=== PATIENT | female | born 1995 | race Caucasian/White ===

== ENCOUNTER 2018-08-07 11:01 | Emergency (ER) | payer SELFPAY ==
[2018-08-07 11:02] VITALS: BP 130/82; PULSE 97; RESP 16; TEMP 36.6; O2SAT 98; BMI 18.8
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
[2018-08-07] MEDS: Ondansetron 8 MG Tablet PO (11:50)
[2018-08-07 12:07] LABS: Mucous, Urine 0 SEEN /hpf (<or=2+); Red Blood Cells-Urine 0 SEEN /hpf (0-5)
[2018-08-07 12:10] LABS: Color, Urine Yellow (Yellow); Glucose, Dipstick Normal (Normal); Ketone-Dipstick Negative (Negative); Leukocyte Esterase-Dipstick 25 /ul (Negative); Nitrite-Dipstick Negative (Negative); Occult Blood-Urine Negative /ul (Negative); Protein-Dipstick Negative (Negative); Specific Gravity, Urine 1.015 (1.002-1.030); Urine Bilirubin Dipstick Negative (Negative); Urine Clarity Sl. Cloudy (Clear); Urine Urobilinogen Normal (Normal)
[2018-08-07 12:12] LABS: Internal QC Validated? YES +Cl - CLEAR BKGD; Pregnancy, Urine Negative Negative
[2018-08-07 12:16] LABS: Bacteria 1+ /hpf (None Seen); Squamous Epithelial Cells - UA 0-5 SEEN /hpf (5-10); White Blood Cells 0-5 SEEN /hpf (0-5)
--- NOTE | 2018-08-07 12:27 | ED.DEP ---
ED Disposition - Plan for ED Patient: Chief Complaint: Nausea/Vomiting Instructions: ED Nausea Vomiting Prescriptions: Ondansetron [Zofran Odt] 4 mg PO Q8H PRN PRN #10 tab PRN Reason: Nausea Referrals: Care Physician,No Primary [Primary Care Provider] -
--- OUTSIDE RECORDS SUMMARY | 2018-09-23 14:40 | XMS RPT_ITS | Summary of Care ---
:1995 Author Organization [facility] Address [address] [place] [address] Phone Care Team Providers Name Role Phone Yanet Barnes MD Primary Care Provider Reason for Visit Reason Comments Preg test Encounter Details Date Type Department Care Team Description 08/29/2017 [facility] JacquidelfinaJordon Less than 8 weeks Emergency Department MD Dann gestation of [address] (Primary Dx) [place] [address] Rd [phone] [facility] [address] [place] [address] [phone] Allergies Active Allergy Reactions Severity Noted Date Comments Amoxicillin Hives 03/01/2017 Metronidazole GI Intolerance 06/29/2017 as of this encounter Medications Prescription Sig. Disp. Refills Start Date End Date Status prenat.vits,yulisa,min-iro Take 1 tablet by 30 each 0 08/29/2017 09/28/2017 Active n-folic ( mouth daily. VITAMIN) Tab as of this encounter Active Problems Problem Noted Date Encounter for tobacco use cessation counseling 07/09/2017 Last Assessment & Plan: Will start on patch and bring back in 2 weeks. Discussed importance of selecting a quit date, identifying barriers and resources, and her boyfriend also quitting with her. Incomplete miscarriage 06/29/2017 Last Assessment & Plan: Will recheck [facility] today. Continue vitamins. Social History Tobacco Use Types Packs/Day Years Used Date Current Every Day Smoker Cigarettes 0.5 1 Smokeless Tobacco: Never Used Alcohol Use Drinks/Week oz/Week Comments Yes Socially Sex Assigned at Date Recorded Not on file as of this encounter Last Filed Vital Signs Vital Sign Reading Time Taken Blood Pressure 133/79 08/29/2017 12:41 PM EST Pulse 100 08/29/2017 12:41 PM EST Temperature 36.9 ??C (98.4 ??F) 08/29/2017 12:41 PM EST Respiratory Rate 16 08/29/2017 12:41 PM EST Oxygen Saturation 100% 08/29/2017 12:41 PM EST Inhaled Oxygen Concentration - - Weight - - Height - - Body Mass Index - - in this encounter Discharge Instructions Florinda Huynh CNP - 08/29/2017Seek medical attention if you have worsening symptoms or other concerns. Please follow up with your family doctor or one of your choosing. You may find a provider through the [facility] Physician Referral Service by calling [phone] ([phone]) or by visiting [email or web address] Tasneem, Thank You for choosing [facility]! PLEASE CALL [facility] TO GET A FOLLOW UP APPOINTMENT SET UP. PLEASE RETURN TO THE ER FORANY CHANGE OR WORSENING OF YOUR SYMPTOMS OR ANY OTHER CONCERNS THAT YOU MAY HAVE. Weeks 6 to 10 of Your : Care Instructions Your Care Instructions Congratulations on your . This is an exciting and important time for you. During the first 6 to 10 weeks of your , your body goes through many changes. Your baby grows very fast, even though you cannot feel it yet. You may start to notice that you feel different, both in your body and your emotions. Because each woman's is unique, there is no right way tofeel. You may feel the healthiest you have ever been, or you may feel tired or sick to your stomach (morning sickness). These early weeks are a time to make healthy choices and to eat the best foods for you and your baby. This care sheet will give you some ideas. This is also a good time to think about defects testing. These are tests done during pregnancyto look for possible problems with the baby. First trimester tests for defects can be done between 10 and 13 weeks of , depending on the test. Talk with your doctor about what kinds of te sts are available. Follow-up care is a riddle part of your treatment and safety. Be sure to make and go to all appointments, and call your doctor if you are having problems. It's also a good idea to know your test results and keep a list of the medicines you take. How can you care for yourself at home? Eat well ?? Eat at least 3 meals and 2 healthy snacks every day. Eat fresh, whole foods, including: ?? 7 or more servings of bread, tortillas, cereal, rice, pasta, or oatmeal. ?? 3 or more servings of vegetables, especially leafy green vegetables. ?? 2 or more servings of fruits. ?? 3 or more servings of milk, yogurt, or cheese. ?? 2 or more servings of meat, turkey, chicken, fish, eggs, or dried beans. ?? Drink plenty of fluids, especially water. Avoid sodas and other sweetened drinks. ?? Choose foods that have important vitamins for your baby, such as calcium, iron, and folate. ?? Dairy products, tofu, canned fish with bones, almonds, broccoli, dark leafy greens, corn tortillas, and fortified orange juice are good sources of calcium. ?? Beef, poultry, liver, spinach, lentils, dried beans, fortified cereals, and dried fruits are richin iron. ?? Dark leafy greens, broccoli, asparagus, liver, fortified cereals, orange juice, peanuts, and almonds are good sources of folate. ?? Avoid foods that could harm your baby. ?? Do not eat raw or undercooked meat, chicken, or fish (such as sushi or raw oysters). ?? Do not eat raw eggs or foods that contain raw eggs, such as Caesar dressing. ?? Do not eat soft cheeses and unpasteurized dairy foods, such as Brie, feta, or blue cheese. ?? Do not eat fish that contains a lot of mercury, such as shark, swordfish, tilefish, or dean mackerel. Do not eat more than 6 ounces of tuna each week. ?? Do not eat raw sprouts, especially alfalfa sprouts. ?? Cut down on caffeine, such as coffee, tea, and cola. Protect yourself and your baby ?? Do not touch juan litter or cat feces. They can cause an infection that could harm your baby. ?? High body temperature can be harmful to your baby. So if you want to use a sauna or hot tub, be sure to talk to your doctor about how to use it safely. [place] with morning sickness ?? Sip small amounts of water, juices, or shakes. Try drinking between meals, not with meals. ?? Eat 5 or 6 small meals a day. Try dry toast or crackers when you first get up, and eat breakfast a little later. ?? Avoid spicy, greasy, and fatty foods. ?? When you feel sick, open your windows or go for a short walk to get fresh air. ?? Try nausea wristbands. These help some women. ?? Tell your doctor if you think your vitamins make you sick. Where can you learn more? Log into your personal health record on [email or web address] and enter G112 in the Education box to learn more about Weeks 6 to 10 of Your : Care Instructions. Current as of: January 24, 2016 Content Version: 11.2 ?? 6583-2612 [employer]. Care instructions adapted under license by your healthcare professional. If you have questions about a medical condition or this instruction, always ask your healthcare professional. [employer] disclaims any warranty or liability for your use of this information. in this encounter Miscellaneous Notes ED Provider Notes - Florinda Huynh CNP - 08/29/2017 12:59 PM ESTFormatting of this note may be different from the original. ED PROVIDER NOTE [facility] EMERGENCY DEPARTMENT NAME: Tasneem Dudley AGE: 22 y.o. : 1995 VISIT DATE: 08/29/2017 CSN: [id number] PCP: Yanet Barnes MD Chief Complaint Patient presents with ??? Preg test This is a 22-year-old female who presents to the emergency department stating that she wants to be tested for possible she states her last menstrual cycle was July 282016 she denies any abdominal pain no pelvic pain no back pain no chest pain or shortness of breath she states she ishaving some breast tenderness and some nausea but denies any vaginal discharge denies any vaginal bleeding denies any dysuria frequency with urination she states she is currently established with [facility] for ongoing medical care but needed documentation of positive test. She is amatory without difficulty her vital signs are stable blood pressure is 133/79 temperature of 98.4 pulse of 100 respiratory of 16 saturations 100% on room air she states she is not immunocompromised.Does not take any medications on a regular basis. I have instructed her to please call [facility] to get an appointment to be set up for reevaluation certainly return for any change worsening of her symptoms or any other concerns she may have. Past Medical History: Diagnosis Date ??? Tachycardia History reviewed. No pertinent surgical history. History reviewed. No pertinent family history. Social History Social History ??? Marital status: Single Spouse name: N/A ??? Number of children: N/A ??? Years of education: N/A Occupational History ??? Not on file. Social History Main Topics ??? Smoking status: Current Every Day Smoker Packs/day: 0.50 Years: 1.00 Types: Cigarettes ??? Smokeless tobacco: Never Used ??? Alcohol use Yes Comment: Socially ??? Drug use: No ??? Sexual activity: Not on file Other Topics Concern ??? Not on file Social History Narrative ??? No narrative on file Previous Medications No medications on file Allergies Allergen Reactions ??? Amoxicillin Hives ??? Flagyl [Metronidazole] GI Intolerance Review of Systems Constitutional: Negative for chills and fatigue. HENT: Negative. Eyes: Negative for visual disturbance. Respiratory: Negative. Cardiovascular: Negative. Gastrointestinal: Positive for constipation and nausea. Negative for abdominal pain, blood in stool and vomiting. Genitourinary: Negative for difficulty urinating, dysuria, flank pain, pelvic pain, urgency, vaginalbleeding and vaginal discharge. Musculoskeletal: Negative. Skin: Negative. Allergic/Immunologic: Negative for immunocompromised state. Neurological: Negative. Psychiatric/Behavioral: Negative. All other systems reviewed and are negative. Positives and pertinent negatives as per HPI. All other systems were reviewed and are negative. Patient Vitals for the past 24 hrs: BP Temp Temp src Pulse Resp SpO2 08/29/17 1241 133/79 98.4 ??F (36.9 ??C) Oral (!) 100 16 100 % Physical Exam Constitutional: She is oriented to person, place, and time. She appears well- developed and well-nourished. HENT: Head: Normocephalic and atraumatic. Eyes: EOM are normal. Neck: Neck supple. Cardiovascular: Normal rate and regular rhythm. Pulmonary/Chest: Effort normal and breath sounds normal. No respiratory distress. She has no wheezes. Abdominal: Soft. Bowel sounds are normal. There is no tenderness. Musculoskeletal: Normal range of motion. Neurological: She is alert and oriented to person, place, and time. Skin: Skin is warm. Psychiatric: She has a normal mood and affect. Nursing note and vitals reviewed. Laboratory & Radiographic Imaging (if done): Results for orders placed or performed during the hospital encounter of 08/29/17 POC Urine Result Value Ref Range POC Preg Test, Ur Positive (A) Negative Internal Control Pass Spec Grav, UA 1.005 - 1.025 No orders to display Procedures MDM 22-year-old female who presented to the emergency department wanting to confirm she is denying any symptoms that would warrant any additional evaluation she did have a test urine done that was positive she has been instructed to call family practice to set up a follow-up appointment she has been given strict return precautions to return to the emergency department for any change or worsening of her symptoms or any other concerns she may have she states she is 2 para 0 miscarriage ??1. ED Course The patient has been informed that they may have pre-hypertension or hypertension based on a blood pressure reading in the Emergency Department. I recommend that the patient call the primary care provider listed on their discharge instructions or a physician of their choice as soon as possible to arrange follow-up in the next 4 weeks for further evaluation of possible pre-hypertension or hypertension. . Clinical Impression: SNOMED CT(R) 1. Less than 8 weeks gestation of FIRST TRIMESTER Follow-up Information 1. Yanet Barnes MD. Specialty: Family Medicine [address] [place] [address] Contact information for after-discharge care Follow-up information has not been specified. New Prescriptions PRENAT.VITS,YULISA,[id number] ( VITAMIN) TAB Take 1 tablet by mouth daily. (Please note that portions of this note may have been completed with a voice recognition software. Efforts were made to correct any errors, but occasionally words are mis-transcribed.) Florinda Huynh CNP 08/29/17 1306 ED Triage Notes - Danielle Marquez RN - 08/29/2017 12:39 PM ESTPt sts there is a possibility she is . Pt did not take a test at home but reports a missed period.in this encounter Plan of Treatment Upcoming Encounters Date Type Specialty Care Team Description 08/31/2017 Initial Primary Care Health Maintenance Due Date Last Done Comments ANNUAL EXAM 1995 TETANUS EVERY 10 YR 1995 HPV VACCINES (1 of 3 - Female 3 Dose Series) 2008 CHLAMYDIA SCREENING 2012 SEQUENTIAL INFLUENZA VACCINE (#1) 2017 as of this encounter Results POC Urine (08/29/2017 12:48 PM) Component Value Ref Range POC Preg Test, Ur Positive (A) Negative Internal Control Pass Spec Grav, UA 1.005 - 1.025 Specimen Performing Laboratory Urine in this encounter Visit Diagnoses Diagnosis Less than 8 weeks gestation of - Primary Insurance Payer Benefit Plan / Group Subscriber ID Type Phone Address [employer] MANAGED MEDICAID [employer] MEDICAID [employer] [id number] as of this encounter
--- OUTSIDE RECORDS SUMMARY | 2018-09-23 14:40 | XMS RPT_ITS | Summary of Care ---
:1995 Author Organization [facility] Address [address] [place] [address] Care Team Providers Name Role Phone Yanet Barnes MD Primary Care Provider Reason for Visit Reason Comments Follow-up Miscarriage Encounter Details Date Type Department Care Team Description 10/26/2017 Office Visit [facility] Family Nayeli Manley, History of spontaneous (Primary Dx); Medicine Jose M OVALLE Constipation, unspecified constipation type; [address] Nausea; [address] Anemia due to blood loss; [place], [place] Poor appetite [id number] [phone] Allergies Active Allergy Reactions Severity Noted Date Comments Amoxicillin Hives 03/01/2017 Metronidazole GI Intolerance 06/29/2017 as of this encounter Medications Prescription Sig. Disp. Refills Start Date End Date Status polyethylene glycol Take 17 255 g 5 10/26/2017 10/21/2018 Active (MIRALAX) 17 gram (seventeen) g by powderIndications: mouth daily. Constipation, unspecified constipation type ondansetron Dissolve 1 (one) 20 tablet 0 10/26/2017 11/02/2017 Active (ZOFRAN-ODT) 4 MG tablet (4 mg disintegrating total) on top of tabletIndications: tongue every 8 Nausea (eight) hours as needed for nausea. ferrous sulfate 325 Take 1 (one) 90 tablet 11 10/26/2017 10/26/2018 Active (65 FE) MG tablet (325 mg tabletIndications: total) by mouth Anemia due to blood 3 (three) times loss a day with meals. as of this encounter Active Problems Problem Noted Date Constipation 10/26/2017 Last Assessment & Plan: Chronic. -Increase dietary fibers and water intake -Miralax 1-2 daily PRN Poor appetite 10/26/2017 Last Assessment & Plan: Lost up to 8 lb in 6 weeks. BMI 18.5. Occasional nausea (once-to-few times a week) w/o emesis, no change in BM. Likely due to stress and acute illness related to 2 spontaneous abortions within last 4 mo nths. Possibly underlying depression, however, pt denies. -Encouraged to eat small frequent meals and healthy snacks -Discussed increasing protein rich foods (meat, beans, whole milk diary) -Increase water intake -PN vitamins -May use Zofran for nausea -If nausea persists consider workup Anemia due to blood loss 10/26/2017 Last Assessment & Plan: Hgb 9.1 (baseline ~ 13). Dur to acute blood loss. -Start iron supplement 2-3x daily w/ meals and Vit C -Discussed se: constipation and dark stool, pt aware -Recheck CBC in 2 months. History of spontaneous 09/19/2017 Overview: Two first trimester SAB Last Assessment & Plan: Two spontaneous abortions (06/27/17 and 09/18/17) at first TM ~ 7 wks. Unknown etiology. S/p bedside manual removal of products of conception on 10/12. Doing well, no bleeding. -Desires to be on BC for next few months, [facility]. -Pt advised to continue prenatals, healthy diet and quit smoking if she desires after short break. -Standing order for beta-HCG quant, trend until below cut-off Tobacco use 09/14/2017 Last Assessment & Plan: Continue to encourage complete cessation, especially at couple are desiring . Continue to motivate. Will also continue nicoderm and monitor. Need for varicella vaccine 09/03/2017 Overview: Varicella equivocal Currently Estimated Date of Delivery Comments Yes 05/05/2018 Based on last menstrual period of 07/29/2017 (Exact Date) Resolved Problems Problem Noted Date Resolved Date Chlamydia infection 09/19/2017 10/17/2017 Last Assessment & Plan: Will need test of cure due to current . Trichomonal infection 09/19/2017 10/17/2017 Last Assessment & Plan: Counseled patient and partner on need for treatment of STD. Avoid intercourse x 1 week after both partners treated. Spotting in 09/19/2017 10/06/2017 Spontaneous 09/19/2017 10/17/2017 Last Assessment & Plan: Tasneem Dudley is 22 y.o. with history of ongoing missed AB presenting to [facility] for increased vaginal bleeding and abdominal cramping. - Afebrile, BP 96/59, HR max 100 BPM. Vitals improved following 1L bolus. - WBC 16, HGB 10.5 (11.9). - Pt diagnosed with Missed AB after inappropriate 48-hr quant 09/18- 09/20. - hCG 10/12 2386 (from 4221) - Significant clot and pooled blood on pelvic exam. Products of conception suspected at os. Os slightly open on digital exam, no visible due to severe anteverted uterus. - Rh+, no indication for Rhogam - +Chlamydia never treated, concern for PID in setting of missed AB. Will provide azithromycin 1g PO x1. - Pelvic US 10/12: irregular-appearing somewhat elongated, ovoid structure in the cervical canal with no obvious identifiable parts. This has some echogenic debris probably representing some bl ood products probably representing patient's incomplete . - Pt stable for discharge. Pain is significantly improved following removal of clot and products and staying in ED. Supervision of low-risk 09/03/2017 10/06/2017 Overview: Dates by LMP 6w5d c/w 6w0d u/s complications: tobacco use, varicella equivocal Initial labs: AB positive, hep B neg, HIV neg, RPR nonreactive, rubella immune, varicella equivocal Quad screen: ... CFTR: Anatomy scan: ... 28 wk labs: ... Tdap:... 36 wk labs: ... Feeding: ... Contraception: ... Baby Doc: Influenza vaccine: Last Assessment & Plan: Dates by LMP 6w5d c/w 6w0d u/s complications: tobacco use, varicella equivocal Initial labs: AB positive, hep B neg, HIV neg, RPR nonreactive, rubella immune, varicella equivocal Incomplete miscarriage 06/29/2017 09/03/2017 Last Assessment & Plan: Will recheck bhCG today. Continue vitamins. Social History Tobacco Use Types Packs/Day Years Used Date Current Every Day Smoker Cigarettes 0.5 1 Smokeless Tobacco: Never Used Comments: '' I'm cutting down'' started smoking one year ago Alcohol Use Drinks/Week oz/Week Comments No denies this Currently Estimated Date of Delivery Comments Yes 05/05/2018 Based on last menstrual period of 07/29/2017 (Exact Date) Sex Assigned at Date Recorded Not on file as of this encounter Last Filed Vital Signs Vital Sign Reading Time Taken Blood Pressure 102/70 10/26/2017 1:42 PM EST Pulse 90 10/26/2017 1:42 PM EST Temperature 36.8 ??C (98.3 ??F) 10/26/2017 1:42 PM EST Respiratory Rate 16 10/26/2017 1:42 PM EST Oxygen Saturation - - Inhaled Oxygen Concentration - - Weight 60.2 kg (132 lb 12 oz) 10/26/2017 1:42 PM EST Height 180.3 cm (5' 11) 10/26/2017 1:42 PM EST Body Mass Index 18.51 10/26/2017 1:42 PM EST in this encounter Progress Notes Nabeel Allen MD - 10/26/2017 2:56 PM XAVI have reviewed the history, physical, diagnosis and care plan with the resident physician, Nayeli Manley MD, on 10/26/2017. I confirm the assessment and treatment plan: The primary encounter diagnosis was History of spontaneous . Diagnoses of Constipation, unspecified constipation type, Nausea, and Anemia due to blood loss were also pertinent to this visit. Tasneem is a 22 y.o. female here for f/u on miscarriage, no more bleeding, f/u quant. Does have constipation; Tx with miralax. Iron supplement for anemia. Nausea - zofran, f/u if persisting.Nayeli Manley MD - 10/26/2017 2:00 PM EST Formatting of this note may be different from the original. Tasneem Dudley is a 22 y.o. female Assessment/Plan: Problem List Items Addressed This Visit Digestive Constipation Chronic. -Increase dietary fibers and water intake -Miralax 1-2 daily PRN Relevant Medications polyethylene glycol (MIRALAX) 17 gram powder Other History of spontaneous - Primary Two spontaneous abortions (06/27/17 and 09/18/17) at first TM ~ 7 wks. Unknown etiology. S/p bedsidemanual removal of products of conception on 10/12. Doing well, no bleeding. -Desires to be on BC for next few months, going to [facility]. -Pt advised to continue prenatals, healthy diet and quit smoking if she desires after short break. -Standing order for beta-HCG quant, trend until below cut-off Relevant Orders hCG, Quantitative, Blood Poor appetite Lost up to 8 lb in 6 weeks. BMI 18.5. Occasional nausea (once-to-few times a week) w/o emesis, no change in BM. Likely due to stress and acute illness related to 2 spontaneous abortions within last 4months. Possibly underlying depression, however, pt denies. -Encouraged to eat small frequent meals and healthy snacks -Discussed increasing protein rich foods (meat, beans, whole milk diary) -Increase water intake -PN vitamins -May use Zofran for nausea -If nausea persists consider workup Relevant Medications ondansetron (ZOFRAN-ODT) 4 MG disintegrating tablet Anemia due to blood loss Hgb 9.1 (baseline ~ 13). Dur to acute blood loss. -Start iron supplement 2-3x daily w/ meals and Vit C -Discussed se: constipation and dark stool, pt aware -Recheck CBC in 2 months. Relevant Medications ferrous sulfate 325 (65 FE) MG tablet Return in about 2 months (around 12/26/2017) for anemia. Tasneem Dudley is a 22 y.o. female who presents for Chief Complaint Patient presents with ??? Follow-up Miscarriage HPI H/o reccurent miscarriage- Tasneem presents with her partner for a follow up after [facility] ED visit 3 weeks ago related to bleeding from miscarriage. She had spontaneous in the end of August (expectant management) and presented to the ED with significant vaginal bleeding on 10/12. She was evaluated by OB physician in the ED, clots were removed. Follow up TVUS evaluation was satisfactory after that and pt's bleeding significantly reduced. She was discharge home in stable condition same day. Shereports her bleeding completely stopped several days ago. Pt is sexually active, not on any contraception. States she is returning [facility] after the [facility] where she will get her Depo Provera shot. Feels fatigue. Has no plans to get in th next several months. Still smoking. Chronic constipation- for years, associated with lower abdominal pain with BM. Barely eats fruits orveggies, reports drinking not enough water, drinks juices and Gatorade. Poor appetite- pt reports poor appetite for [id number]. She has unintentional weight loss, unsure how much (per chart, up to 8 lb in the past 2 months). No vomiting but has occasional nausea. Not craving any food. Pt asks what to do to gain weight. When asked about body habits in other females inthe family admits her mom and sister and also thin. Patient Active Problem List Diagnosis SNOMED CT(R) ??? Need for varicella vaccine REQUIRES VACCINATION ??? Tobacco use TOBACCO USE AND EXPOSURE - FINDING ??? History of spontaneous H/O: MISCARRIAGE ??? Constipation CONSTIPATION ??? Poor appetite DECREASE IN APPETITE ??? Anemia due to blood loss ANEMIA DUE TO BLOOD LOSS Past Surgical History: Procedure Laterality Date ??? denies Social History Substance Use Topics ??? Smoking status: Current Every Day Smoker Packs/day: 0.50 Years: 1.00 Types: Cigarettes ??? Smokeless tobacco: Never Used Comment: '' I'm cutting down'' started smoking one year ago ??? Alcohol use No Comment: denies this Current Outpatient Prescriptions Medication Sig Dispense Refill ??? ferrous sulfate 325 (65 FE) MG tablet Take 1 (one) tablet (325 mg total) by mouth 3 (three) times a day with meals. 90 tablet 11 ??? ondansetron (ZOFRAN-ODT) 4 MG disintegrating tablet Dissolve 1 (one) tablet (4 mg total) on top of tongue every 8 (eight) hours as needed for nausea. 20 tablet 0 ??? polyethylene glycol (MIRALAX) 17 gram powder Take 17 (seventeen) g by mouth daily. 255 g 5 No current facility-administered medications for this visit. Review of Systems Constitutional: Positive for appetite change. Negative for fever. Respiratory: Negative for shortness of breath. Cardiovascular: Negative for chest pain. Gastrointestinal: Negative for blood in stool. Cramping-like pain with BM. Chronic constipation. Occasional nausea, no emesis. Endocrine: Negative for cold intolerance, heat intolerance, polydipsia and polyuria. Genitourinary: Negative for dyspareunia, vaginal bleeding and vaginal discharge. Musculoskeletal: Negative for arthralgias. Skin: Negative for rash. Neurological: Negative for light-headedness. Psychiatric/Behavioral: Negative for sleep disturbance and suicidal ideas. The patient is not nervous/anxious. Physical Exam: BP 102/70 Pulse 90 Temp 98.3 ??F (36.8 ??C) (Oral) Resp 16 Ht 5' 11 Wt 60.2 kg (132 lb 12 oz) LMP 07/29/2017 (Exact Date) BMI 18.51 kg/m?? Wt Readings from Last 3 Encounters: 10/26/17 60.2 kg (132 lb 12 oz) 10/12/17 59.9 kg (132 lb) 09/28/17 61.7 kg (136 lb) BP Readings from Last 3 Encounters: 10/26/17 102/70 10/12/17 (!) 106/45 09/28/17 120/80 Physical Exam Constitutional: No distress. Pt appears pale and tired. Cardiovascular: Normal heart sounds. Pulmonary/Chest: Effort normal. Abdominal: Soft. Bowel sounds are normal. She exhibits no distension. There is no tenderness. There is no guarding. Musculoskeletal: Normal range of motion. Skin: Skin is warm and dry. Psychiatric: Answer q's appropriately. Mood normal, affect flat, appears withdrawn (comparable with previous visit, baseline?) No Data Recorded Health Maintenance Due Topic Date Due ??? TETANUS EVERY 10 YR 1997 ??? ANNUAL EXAM 1997 ??? HPV VACCINES (1 of 3 - Female 3 Dose Series) 2008 ??? CHLAMYDIA SCREENING 2012 ??? SEQUENTIAL INFLUENZA VACCINE (1) 04/27/2017 Goals None For any new medications prescribed today, patient was educated about indications for the medication,how to take the medication and potential side effects of the medications. in this encounter Miscellaneous Notes Assessment & Plan Note - Nayeli Manley MD - 10/27/2017 1:49 PM EST Associated Problem(s): ConstipationChronic. -Increase dietary fibers and water intake -Miralax 1-2 daily PRNAssessment & Plan Note - Nayeli Manley MD - 10/27/2017 1:44 PM ESTAssociated Problem(s): History of spontaneous abortionTwo spontaneous abortions (06/27/17 and 09/18/17) at first TM ~ 7 wks. Unknown etiology. S/p bedside manual removal of products of conception on 10/12. Doing well, no bleeding. -Desires to be on BC for next few months, going to [facility]. -Pt advised to continue prenatals, healthy diet and quit smoking if she desires after short break. -Standing order for beta-HCG quant, trend until below cut-off Assessment & Plan Note - Nayeli Manley MD - 10/27/2017 1:42 PM EST Associated Problem(s): Anemia due to blood lossHgb 9.1 (baseline ~ 13). Dur to acute blood loss. -Start iron supplement 2-3x daily w/ meals and Vit C -Discussed se: constipation and dark stool, pt aware -Recheck CBC in 2 months.Assessment & Plan Note - Nayeli Manley MD - 10/26/2017 10:03 PM ESTAssociated Problem(s): Poor appetiteLost up to 8 lb in 6 weeks. BMI 18.5. Occasional nausea (once-to-few times a week) w/o emesis, no paz nge in BM. Likely due to stress and acute illness related to 2 spontaneous abortions within last 4 months. Possibly underlying depression, however, pt denies. -Encouraged to eat small frequent meals and healthy snacks -Discussed increasing protein rich foods (meat, beans, whole milk diary) -Increase water intake -PN vitamins -May use Zofran for nausea -If nausea persists consider workupin this encounter Plan of Treatment Scheduled Tests Name Priority Associated Diagnoses Order Schedule hCG, Quantitative, Routine History of spontaneous Once a week for 5 Blood Occurrences starting 10/26/2017 until 10/26/2018, 1 completed Health Maintenance Due Date Last Done Comments ANNUAL EXAM 1997 TETANUS EVERY 10 YR 1997 HPV VACCINES (1 of 3 - Female 3 Dose Series) 2008 CHLAMYDIA SCREENING 2012 SEQUENTIAL INFLUENZA VACCINE (#1) 2017 as of this encounter Results hCG, Quantitative, Blood (10/26/2017 2:28 PM) Component Value Ref Range hCG Quant 24 (H) 0 - 5 mIU/mL Specimen Performing Laboratory Blood [facility] [address] [place] [address] Narrative Males and non females:?<5 mIU/mL Females during : 3-4 weeks?9-130 mIU/mL 4-5 weeks?75-2600 mIU/mL 5-6 weeks?850-20,800 mIU/mL 6-7 weeks?4000-100,200 mIU/mL 7-12 weeks? 11,500-289,000 mIU/mL 12-16 weeks?18,300-137,000 mIU/mL 16-29 weeks?1,400-53,000 mIU/mL 29-41 weeks?940-60,000 mIU/mL in this encounter Visit Diagnoses Diagnosis History of spontaneous - Primary Constipation, unspecified constipation type Nausea Nausea alone Anemia due to blood loss Acute posthemorrhagic anemia Poor appetite Anorexia Insurance Payer Benefit Plan / Group Subscriber ID Type Phone Address [employer] MA[employer]GED MEDICAID [employer] xxxxxxxxx Work: [phone] [place], [place] Home: [phone] as of this encounter
--- OUTSIDE RECORDS SUMMARY | 2018-09-23 14:40 | XMS RPT_ITS | Summary of Care ---
:1995 Author Organization [facility] Address [address] [place] [address] Care Team Providers Name Role Phone Yanet Barnes MD Primary Care Provider Reason for Visit Reason Comments Follow-up Encounter Details Date Type Department Care Team Description 07/27/2017 Office Visit [facility] Family Yanet Barnes MD Nausea (Primary Dx); Medicine Jose M [address] Tobacco use [address] [facility] [facility] [address] [place] [phone] Allergies Active Allergy Reactions Severity Noted Date Comments Amoxicillin Hives 03/01/2017 Metronidazole GI Intolerance 06/29/2017 as of this encounter Medications Prescription Sig. Disp. Refills Start Date End Date Status nicotine (NICODERM CQ) Place 1 (one) 28 patch 0 07/09/2017 08/14/2017 21 mg/24 hrIndications: patch on the Encounter for tobacco skin daily. use cessation counseling as of this encounter Active Problems Problem Noted Date History of spontaneous 09/19/2017 Overview: Two first trimester SAB Last Assessment & Plan: Spontaneous at about 7 weeks on 06/27/2017. No known cause. Tobacco use 09/14/2017 Last Assessment & Plan: [...] history of ongoing missed AB presenting to [facility] for increased vaginal bleeding and abdominal cramping. [...] Date Current Every Day Smoker Cigarettes 0.5 Smokeless Tobacco: Never Used Alcohol Use Drinks/Week oz/Week Comments Yes Socially Currently Estimated Date of Delivery Comments Yes 05/05/2018 Based on last menstrual period of 07/29/2017 (Exact Date) Sex Assigned at Date Recorded Not on file as of this encounter Last Filed Vital Signs Vital Sign Reading Time Taken Blood Pressure 118/68 07/27/2017 3:56 PM EST Pulse 82 07/27/2017 3:56 PM EST Temperature 36.4 ??C (97.5 ??F) 07/27/2017 3:56 PM EST Respiratory Rate 18 07/27/2017 3:56 PM EST Oxygen Saturation - - Inhaled Oxygen Concentration - - Weight 63 kg (139 lb) 07/27/2017 3:56 PM EST Height 182.9 cm (6') 07/27/2017 3:56 PM EST Body Mass Index 18.85 07/27/2017 3:56 PM EST in this encounter Progress Notes Nabeel Allen MD - 07/27/2017 5:28 PM XAVI have reviewed the history, physical, diagnosis and care plan with the resident physician, Yanet Barnes MD, on 07/27/2017. I confirm the assessment and treatment plan: The encounter diagnosis was NauseaTiarra Boateng is a 21 y.o. female here with some -type symptoms, also for tobacco cessation f/u.Doing well with weaning tobacco. Upreg negative, check HCG quant, repeat upreg in 1-2w. Yanet Barnes MD - 07/27/2017 4:04 PM ESTFormatting of this note may be different from the original. Tasneem Dudley is a 21 y.o. female Assessment/Plan: Problem List Items Addressed This Visit Other Tobacco use Continue to encourage complete cessation, especially at couple are desiring . Continue tomotivate. Will also continue nicoderm and monitor. Other Visit Diagnoses Nausea - Primary Urine test negative today, so very unlikely that patient is currently . Will recheck beta hCG to complete trending s/p SAB. Continue vitamins as desiring . Relevant Orders POC , Urine (Completed) Return in about 2 weeks (around 08/10/2017) for Follow Up Test. Tasneem Dudley is a 21 y.o. female who presents for Chief Complaint Patient presents with ??? Follow-up HPI - Nausea: Patient has been experiencing symptoms of morning sickness for the past 2-3 days. Recent incomplete miscarriage. Would like to receive test. - Tobacco use: Has been using the nicoderm patch with some improvement in cravings. Still smoking several cigarettes a day but is motivated to quit completely. Patient Active Problem List Diagnosis SNOMED CT(R) ??? Incomplete miscarriage INCOMPLETE MISCARRIAGE ??? Encounter for tobacco use cessation counseling PATIENT ENCOUNTER STATUS No past surgical history on file. Social History Substance Use Topics ??? Smoking status: Current Every Day Smoker Packs/day: 0.50 Types: Cigarettes ??? Smokeless tobacco: Never Used ??? Alcohol use Yes Comment: Socially Current Outpatient Prescriptions Medication Sig Dispense Refill ??? nicotine (NICODERM CQ) 21 mg/[address] 1 (one) patch on the skin daily. 28 patch 0 No current facility-administered medications for this visit. Review of Systems Constitutional: Negative for activity change, appetite change, chills, fatigue and fever. Respiratory: Negative for shortness of breath. Cardiovascular: Negative for chest pain. Gastrointestinal: Positive for nausea. Negative for abdominal pain, constipation and vomiting. Neurological: Negative for light-headedness and headaches. Physical Exam: BP 118/68 Pulse 82 Temp 97.5 ??F (36.4 ??C) (Temporal) Resp 18 Ht 6' Wt 63 kg (139 lb) LMP 05/28/2017 BMI 18.85 kg/m2 Wt Readings from Last 3 Encounters: 07/27/17 63 kg (139 lb) (67 %, Z= 0.45)* 07/09/17 62.1 kg (137 lb) (65 %, Z= 0.38)* 07/05/17 62.4 kg (137 lb 8 oz) (65 %, Z= 0.40)* * Growth percentiles are based on [facility] 2-20 Years data. BP Readings from Last 3 Encounters: 07/27/17 118/68 07/09/17 120/62 07/05/17 120/70 Physical Exam Constitutional: She appears well-developed and well-nourished. No distress. HENT: Head: Normocephalic and atraumatic. Eyes: Conjunctivae and EOM are normal. Pulmonary/Chest: Effort normal. Abdominal: Soft. Bowel sounds are normal. She exhibits no distension and no mass. There is no tenderness. There is no rebound and no guarding. Musculoskeletal: Normal range of motion. Neurological: She is alert. Skin: Skin is warm. She is not diaphoretic. Psychiatric: She has a normal mood and affect. Her behavior is normal. Judgment and thought content normal. Vitals reviewed. For any new medications prescribed today, patient was educated about indications for the medication,how to take the medication and potential side effects of the medications.in this encounter Miscellaneous Notes Assessment & Plan Note - Yanet Barnes MD - 10/17/2017 11:06 PM EST Associated Problem(s): Tobacco useContinue to encourage complete cessation, especially at couple are desiring . Continue to motivate. Will also continue nicoderm and monitor.in this encounter Plan of Treatment Health Maintenance Due Date Last Done Comments ANNUAL EXAM 1997 TETANUS EVERY 10 YR 1997 HPV VACCINES (1 of 3 - Female 3 Dose Series) 2008 CHLAMYDIA SCREENING 2012 SEQUENTIAL INFLUENZA VACCINE (#1) 2017 as of this encounter Results POC , Urine (07/27/2017 4:16 PM) Component Value Ref Range POC Preg Test, Ur Negative Negative Internal Control Pass Spec Grav, UA 1.005 - 1.025 Specimen Performing Laboratory Urine in this encounter Visit Diagnoses Diagnosis Nausea - Primary Nausea alone Tobacco use Insurance Payer Benefit Plan / Group Subscriber ID Type Phone Address [facility] MANAGED MEDICAID [facility] MEDICAID COMMUNITY PLAN xxxxxxxxx Home: [phone] as of this encounter
--- OUTSIDE RECORDS SUMMARY | 2018-09-23 14:41 | XMS RPT_ITS | Summary of Care ---
:1995 Author Organization [facility] Address [address] [id number] Phone Care Team Providers Name Role Phone Yanet Barnes MD Primary Care Provider Reason for Visit Reason Comments Vaginal Discharge Encounter Details Date Type Department Care Team Description 09/18/2017 - 09/19/2017 [facility] Emergency Department [address] [id number] Allergies Active Allergy Reactions Severity Noted Date Comments Amoxicillin Hives 03/01/2017 Metronidazole GI Intolerance 06/29/2017 as of this encounter Medications Prescription Sig. Disp. Refills Start Date End Date Status prenat.vits,jose juan,min-iro Take 1 tablet by 30 each 0 08/29/2017 09/28/2017 Active n-folic ( mouth daily. VITAMIN) Tab nicotine (NICODERM CQ) Place 1 (one) 28 patch 0 09/14/2017 10/14/2017 Active 14 mg/24 hrIndications: patch on the Maternal tobacco use in skin daily. first trimester as of this encounter Active Problems Problem Noted Date Tobacco use during 09/14/2017 Overview: Patch taper. Will need growth scan. Last Assessment & Plan: Desires to quit. Will start on patch and taper off. Will need growth scan. Need for varicella vaccine 09/03/2017 Overview: Varicella equivocal Supervision of low-risk 09/03/2017 Overview: Dates by LMP 6w5d c/w 6w0d [...] neg, RPR nonreactive, rubella immune, varicella equivocal Currently Estimated Date of Delivery Comments Yes 05/05/2018 Based on last menstrual period of 07/29/2017 (Exact Date) Resolved Problems Problem Noted Date Resolved Date Incomplete miscarriage 06/29/2017 09/03/2017 Last Assessment & [...] Vital Sign Reading Time Taken Blood Pressure 105/67 09/18/2017 3:14 PM EST Pulse 95 09/18/2017 3:14 PM EST Temperature 36.7 ??C (98 ??F) 09/18/2017 3:14 PM EST Respiratory Rate - - Oxygen Saturation 100% 09/18/2017 3:14 PM EST Inhaled Oxygen Concentration - - Weight - - Height - - Body Mass Index - - in this encounter Miscellaneous Notes ED Triage Notes - Porsche Vaz RN - 09/18/2017 3:12 PM ESTPt arrives with c/o noticing a pink colored tissue on tissue while using bathroom. Pt denies vaginalbleeding or abd cramping. Pt is approximately 7wks gestation with a current single IUP per results in computer 09/14in this encounter Plan of Treatment Pending Results Name Priority Associated Diagnoses Date/Time US Obstetric 1st Trimester With STAT 09/18/2017 4:20 PM EST Transvaginal, Transabdominal And Color Flow Single Fetus Health Maintenance Due Date Last Done Comments ANNUAL EXAM 1997 TETANUS EVERY 10 YR 1997 HPV VACCINES (1 of 3 - Female 3 Dose Series) 2008 CHLAMYDIA SCREENING 2012 SEQUENTIAL INFLUENZA VACCINE (#1) 2017 as of this encounter Results [place] Top (09/18/2017 3:20 PM) Specimen Performing Laboratory Blood [facility] [address] [place] [address] [place] Draw (09/18/2017 3:20 PM) Specimen Performing Laboratory Blood Narrative The following orders were created for panel order [place] Draw. Procedure? Abnormality? Status? ---------? ------? [place] Top[[id number]]? Final result? Please view results for these tests on the individual orders. CBC Auto Differential (09/18/2017 3:19 PM) Component Value Ref Range WBC 8.32 4.50 - 11.00 K/mcL RBC 3.70 (L) 4.00 - 5.20 M/mcL Hemoglobin 11.9 (L) 12.0 - 16.0 g/dL Hematocrit 34.9 (L) 36.0 - 46.0 % MCV 94.3 80.0 - 100.0 fL MCH 32.2 26.0 - 34.0 pg MCHC 34.1 31.0 - 37.0 g/dL Platelets 178 150 - 400 K/mcL RDW - CV 12.8 11.6 - 14.8 % MPV 10.0 9.0 - 15.5 fL Neutrophils 63.4 % Lymphocytes 26.2 % Monocytes 6.1 % Eosinophils 3.5 % Basophils 0.6 % IG Percent 0.20Comment: The IG parameter is the percentage % of metamyelocytes, myelocytes, and promyelocytes. Neutrophils Abs 5.27 1.70 - 7.00 K/mcL Lymphocytes Abs 2.18 0.90 - 4.00 K/mcL Monocytes Abs 0.51 0.30 - 0.90 K/mcL Eosinophils Abs 0.29 0.00 - 0.50 K/mcL Basophils Abs 0.05 0.00 - 0.30 K/mcL IG Absolute 0.02 0.00 - 0.30 K/mcL Nucleated RBC 0.0 % Nucleated RBC Abs 0.00 0.00 - 0.00 K/mcL Specimen Performing Laboratory Blood [facility] [address] [place] [address] HCG (QUANTITATIVE) (09/18/2017 3:19 PM) Component Value Ref Range hCG Quant 43,856 (H) 0 - 5 mIU/mL Specimen Performing Laboratory Blood [facility] [address] [place] [address] Narrative Males and non females:?<5 mIU/mL Females during : 3-4 weeks?9-130 mIU/mL 4-5 weeks?75-2600 mIU/mL 5-6 weeks?850-20,800 mIU/mL 6-7 weeks?4000-100,200 mIU/mL 7-12 weeks? 11,500-289,000 mIU/mL 12-16 weeks?18,300-137,000 mIU/mL 16-29 weeks?1,400-53,000 mIU/mL 29-41 weeks?940-60,000 mIU/mL BMP (09/18/2017 3:19 PM) Component Value Ref Range Sodium 138 135 - 145 mmol/L Potassium 4.5 3.5 - 5.1 mmol/L Chloride 104 98 - 108 mmol/L Bicarbonate 23 21 - 32 mmol/L Anion Gap 16 10 - 20 mmol/L Glucose 91 65 - 99 mg/dL BUN 10 8 - 25 mg/dL Creatinine 0.57 0.40 - 1.10 mg/dL eGFR 134 >=60 mL/min/1.73 m2 BUN/Creatinine Ratio 17.5 10.0 - 20.0 Calcium 9.4 8.4 - 10.2 mg/dL Specimen Performing Laboratory Blood [facility] [place] [address] Narrative The eGFR should be used for monitoring renal function only and not for medication dosing. CBC w/ Diff (09/18/2017 3:19 PM) Specimen Performing Laboratory Blood Narrative The following orders were created for panel order CBC w/ Diff. Procedure? Abnormality? Status? ---------? ------? CBC Auto Differential[[id number]]?Abnormal?Final result? Please view results for these tests on the individual orders. in this encounter Insurance Payer Benefit Plan / Group Subscriber ID Type Phone Address [employer] MANAGED MEDICAID [employer] [id number] as of this encounter
--- OUTSIDE RECORDS SUMMARY | 2018-09-23 14:41 | XMS RPT_ITS | Summary of Care ---
:1995 Author Organization [facility] Address [address] [place] [address] Phone Care Team Providers Name Role Phone Yanet Barnes MD Primary Care Provider Reason for Visit Reason Comments Follow-up [place]- pelvic pain Routine Visit Encounter Details Date Type Department Care Team Description 07/05/2017 Routine [facility] Yanet Barnes MD [address] [facility] [address] [id number] [place] [id number] Allergies Active Allergy Reactions Severity Noted Date Comments Amoxicillin Hives 03/01/2017 Metronidazole GI Intolerance 06/29/2017 as of this encounter Medications Prescription Sig. Disp. Refills Start Date End Date Status prenat.vits,jose juan,min-iro Take 1 tablet by 30 each 0 06/26/2017 07/26/2017 Active n-folic ( mouth daily. VITAMIN) Tab as of this encounter Active Problems Problem Noted Date Threatened miscarriage 06/29/2017 Last Assessment & Plan: Concern for miscarriage considering low/stable bhCG and cramping and now vaginal bleeding. Repeat ultrasound report still unclear regarding location of possible . Continue to closely monitor weekly bhCG. Discussed red flags for ectopic for which to report to ED. Of note, was desired. as of this encounter Social History Tobacco Use Types Packs/Day Years Used Date Current Every Day Smoker Cigarettes 0.5 Smokeless Tobacco: Never Used Alcohol Use Drinks/Week oz/Week Comments Yes Socially Sex Assigned at Date Recorded Not on file as of this encounter Last Filed Vital Signs Vital Sign Reading Time Taken Blood Pressure 120/70 07/05/2017 9:31 AM EST Pulse 76 07/05/2017 9:31 AM EST Temperature 36.7 ??C (98 ??F) 07/05/2017 9:31 AM EST Respiratory Rate 16 07/05/2017 9:31 AM EST Oxygen Saturation - - Inhaled Oxygen Concentration - - Weight 62.4 kg (137 lb 8 oz) 07/05/2017 9:31 AM EST Height 182.9 cm (6') 07/05/2017 9:31 AM EST Body Mass Index 18.65 07/05/2017 9:31 AM EST in this encounter Progress Notes Nabeel Allen MD - 07/05/2017 11:34 AM XAVI have reviewed the history, physical, diagnosis and care plan with the resident physician, Yanet Barnes MD, on 07/05/2017. I confirm the assessment and treatment plan: The encounter diagnosis was Threatened miscarriage. Tasneem is a 21 y.o. female here for f/u of likely miscarriage, continuing to monitor, no evidence of ectopic. Yanet Barnes MD - 07/05/2017 9:41 AM ESTFormatting of this note may be different from the original. Tasneem Christensen is a 21 y.o. female Assessment/Plan: Problem List Items Addressed This Visit Other Threatened miscarriage - Primary Concern for miscarriage considering low/stable bhCG and cramping and now vaginal bleeding. Repeat ultrasound report still unclear regarding location of possible . Continue to closely monitorweekly bhCG. Discussed red flags for ectopic for which to report to ED. Of note, pregnancywas desired. Continue vitamins. Discussed importance of smoking cessation. Relevant Orders hCG, Quantitative, Blood Return in about 1 week (around 07/12/2017) for Follow Up. Tasneem Christensen is a 21 y.o. female who presents for Chief Complaint Patient presents with ??? Follow-up [place]- pelvic pain ??? Routine Visit HPI - Concern for miscarriage: Had ultrasound done on 07/03, which revealed similar results as the initial one. Later that night, she developed and vaginal bleeding, so went to [facility] ED where had repeat ultrasound (same results). Bleeding has since slowed down (less than a pad a day). Cramping has resolved. Patient Active Problem List Diagnosis SNOMED CT(R) ??? Threatened miscarriage THREATENED MISCARRIAGE No past surgical history on file. Social History Substance Use Topics ??? Smoking status: Current Every Day Smoker Packs/day: 0.50 Types: Cigarettes ??? Smokeless tobacco: Never Used ??? Alcohol use Yes Comment: Socially Medication Sig ??? prenat.vits,jose juan,nyb-xvcg-joulu ( VITAMIN) Tab Take 1 tablet by mouth daily. Review of Systems Constitutional: Negative for activity change, fatigue and fever. Cardiovascular: Negative for palpitations. Gastrointestinal: Positive for abdominal pain. Negative for constipation. Genitourinary: Positive for pelvic pain and vaginal bleeding. Negative for vaginal discharge and vaginal pain. Neurological: Negative for dizziness, light-headedness and headaches. Psychiatric/Behavioral: Negative for sleep disturbance. The patient is not nervous/anxious. Physical Exam: BP 120/70 Pulse 76 Temp 98 ??F (36.7 ??C) (Oral) Resp 16 Ht 6' Wt 62.4 kg (137 lb 8 oz) LMP 05/21/2017 BMI 18.65 kg/m2 Wt Readings from Last 3 Encounters: 07/05/17 62.4 kg (137 lb 8 oz) (65 %, Z= 0.40)* 06/29/17 63.4 kg (139 lb 12.8 oz) (69 %, Z= 0.49)* 06/25/17 63.5 kg (140 lb) (69 %, Z= 0.49)* * Growth percentiles are based on CDC 2-20 Years data. BP Readings from Last 3 Encounters: 07/05/17 120/70 06/29/17 118/76 06/26/17 118/76 Physical Exam Constitutional: She appears well-developed and well-nourished. No distress. HENT: Head: Normocephalic and atraumatic. Eyes: Conjunctivae and EOM are normal. Pulmonary/Chest: Effort normal. Abdominal: Soft. She exhibits no distension. There is no tenderness. There is no rebound and no guarding. Genitourinary: Genitourinary Comments: Patient declined Musculoskeletal: Normal range of motion. Neurological: She is alert. Skin: Skin is warm. She is not diaphoretic. Psychiatric: She has a normal mood and affect. Her behavior is normal. Vitals reviewed. For any new medications prescribed today, patient was educated about indications for the medication,how to take the medication and potential side effects of the medications.in this encounter Miscellaneous Notes Assessment & Plan Note - Yanet Barnes MD - 07/05/2017 10:47 AM EST Associated Problem(s): Threatened miscarriageConcern for miscarriage considering low/stable bhCG and cramping and now vaginal bleeding. Repeat ultrasound report still unclear regarding location of possible . Continue to closely monitor weekly bhCG. Discussed red flags for ectopic for which to report to ED. Of note, was desired.in this encounter Plan of Treatment Upcoming Encounters Date Type Specialty Care Team Description 07/09/2017 Office Visit Primary Care Yanet Barnes MD [facility] [place] [address] 07/12/2017 Routine Primary Care Yanet Barnes MD [address] [place] [address] Scheduled Tests Name Priority Associated Diagnoses Order Schedule hCG, Quantitative, Blood Routine Threatened miscarriage Twice a Week for 4 Occurrences starting 07/05/2017 until 07/05/2018 Health Maintenance Due Date Last Done Comments TETANUS EVERY 10 YR 1997 HPV VACCINES (1 of 3 - Female 3 Dose Series) 2008 SEQUENTIAL INFLUENZA VACCINE (#1) 2017 as of this encounter Visit Diagnoses Diagnosis Threatened miscarriage - Primary Threatened , unspecified as to episode of care in this encounter Insurance Payer Benefit Plan / Group Subscriber ID Type Phone Address [facility] MANAGED MEDICAID [facility] MEDICAID COMMUNITY PLAN [id number] as of this encounter
--- OUTSIDE RECORDS SUMMARY | 2018-09-23 14:41 | XMS RPT_ITS | Summary of Care ---
:1995 Author Organization [facility] Address [address] [place] [address] Phone Care Team Providers Name Role Phone Yanet Barnes MD Primary Care Provider Reason for Visit Reason Comments Follow-up [facility] Visit Encounter Details Date Type Department Care Team Description 09/20/2017 Patient Outreach [facility] [place] Follow-up ([facility] Medicine Jose M Orozco RN Visit) [address] [place] [address] Allergies Active Allergy Reactions Severity Noted Date [...] this encounter Active Problems Problem Noted Date Chlamydia infection 09/19/2017 Last Assessment & Plan: Will need test of cure due to current . Trichomonal infection 09/19/2017 Last Assessment & Plan: Counseled patient and partner on need for treatment of STD. Avoid intercourse x 1 week after both partners treated. Spotting in 09/19/2017 History of spontaneous 09/19/2017 Last Assessment & Plan: Spontaneous at about 7 weeks on 06/27/2017. No known cause. Threatened in first trimester 09/19/2017 Last Assessment & Plan: LMP 07/29/17 with JN 05/05/18 1 day of spotting on 09/18. TVUS in ED (09/18): Intrauterine gestational sac with pole and yolk sac consistent with an estimated gestational age of 6.4 weeks. No cardiac activity identified, not unexpected based on cr own-rump length. Consider follow-up hCG and/or ultrasound to ensure viability Beta-hCG 43K (09/18). -Ordered beta-hCG to be repeated in 48-72 hours, pt instructed to do it after 2PM on 09/20 -Pt also instructed to monitor for bleeding, passing tissues, clots, cramping pain -RTC after weekend for evaluation Tobacco use during 09/14/2017 Overview: Patch taper. [...] Not on file as of this encounter Progress Notes Bell Hannon RN - 09/20/2017 11:31 AM ESTPatient was seen in the [facility] ED on 09/18/17-09/19/16 Date of call: 09/20/17 Discharge diagnosis: VIVIAN Spoke with Tasneem States reason for going to the ED She was not feeling good and bleeding States has been feeling ok Follow-up appointment date/time: I spoke with Tasneem the previous day after. States that she was at the ED and was told she was hemorrhaging but was made to wait for 6 hours. She stated that she leftafter she was told it would be another 6 [address] Dr could see her. Made a same day appt with Dr. Harrington which she came to. in this encounter Plan of Treatment Health Maintenance Due Date Last Done Comments ANNUAL EXAM 1997 TETANUS EVERY 10 YR 1997 HPV VACCINES (1 of 3 - Female 3 Dose Series) 2008 CHLAMYDIA SCREENING 2012 SEQUENTIAL INFLUENZA VACCINE (#1) 2017 as of this encounter Insurance Payer Benefit Plan / Group Subscriber ID Type Phone Address [facility] MANAGED MEDICAID [facility] MEDICAID COMMUNITY PLAN [id number] as of this encounter
--- OUTSIDE RECORDS SUMMARY | 2018-09-23 14:41 | XMS RPT_ITS | Summary of Care ---
:1995 Author Organization [facility] Address [address] [place] [address] Phone Care Team Providers Name Role Phone Yanet Barnes MD Primary Care Provider Reason for Visit Reason Comments Vaginal Bleeding Encounter Details Date Type Department Care Team Description 10/12/2017 Emergency [place] AlevismJaxon Porterley Spontaneous [facility] (Primary Dx) Department [address] [place] [address] [phone] [place] [address] [phone] Allergies Active Allergy Reactions Severity Noted Date [...] x 1 week after both partners treated. History of spontaneous 09/19/2017 Overview: Two first trimester SAB Last Assessment & Plan: Spontaneous at about 7 weeks on 06/27/2017. No known cause. Spontaneous 09/19/2017 Last Assessment & Plan: Tasneem Dudley is 22 y.o. with history of ongoing missed AB presenting to [facility] for increased vaginal bleeding and abdominal cramping. [...] clot and products and staying in ED. Tobacco use 09/14/2017 Overview: Patch taper. Last Assessment & Plan: Desires to quit. Will start on patch and taper off. Will need growth scan. Need for varicella vaccine 09/03/2017 Overview: Varicella equivocal Currently Estimated Date of Delivery Comments Yes 05/05/2018 Based on last menstrual period of 07/29/2017 (Exact Date) Resolved Problems Problem Noted Date Resolved Date Spotting in 09/19/2017 10/06/2017 Supervision of low-risk 09/03/2017 10/06/2017 Overview: Dates [...] 09/03/2017 Last Assessment & Plan: Will recheck [facility] today. Continue vitamins. Social History Tobacco Use [...] Vital Sign Reading Time Taken Blood Pressure 106/45 10/12/2017 7:35 AM EST Pulse 96 10/12/2017 7:35 AM EST Temperature 36.3 ??C (97.3 ??F) 10/12/2017 2:03 AM EST Respiratory Rate 14 10/12/2017 5:23 AM EST Oxygen Saturation 98% 10/12/2017 7:35 AM EST Inhaled Oxygen Concentration - - Weight 59.9 kg (132 lb) 10/12/2017 2:03 AM EST Height 180.3 cm (5' 11) 10/12/2017 2:03 AM EST Body Mass Index 18.41 10/12/2017 2:03 AM EST in this encounter Discharge Instructions Jaxon Lockett II, MD - 10/12/2017Miscarriage: Care Instructions Your Care Instructions The loss of a can be very hard. You may wonder why it happened or blame yourself. Miscarriages are common and are not caused by exercise, stress, or sex. Most happen because the fertilized egg in the uterus does not develop normally. There is no treatment that can stop a miscarriage. As long as you do not have heavy blood loss, fever, weakness, or other signs of infection, you can let a miscarriage follow its own course. This can take several days. Your body will recover over the next several weeks. Having a miscarriage does not mean you cannot have a normal in the future. The doctor has checked you carefully, but problems can develop later. If you notice any problems or new symptoms, get medical treatment right away. Follow-up care is a riddle part of your treatment and safety. Be sure to make and go to all appointments, and call your doctor if you are having problems. It's also a good idea to know your test results and keep a list of the medicines you take. How can you care for yourself at home? ?? You will probably have some vaginal bleeding for 1 to 2 weeks. It may be similar to or slightly heavier than a normal period. The bleeding should get salesperson sheet music after a week. Use pads instead of tampons. You may use tampons during your next period, which should start in 3 to 6 weeks. ?? Take an [id number] pain medicine, such as acetaminophen (Tylenol), ibuprofen (Advil, Motrin), or naproxen (Aleve) for cramps. Read and follow all instructions on the label. You may have crampsfor several days after the miscarriage. ?? Do not take two or more pain medicines at the same time unless the doctor told you to. Many pain medicines have acetaminophen, which is Tylenol. Too much acetaminophen (Tylenol) can be harmful. ?? Use a clear container to save any tissue that you pass. Take it to your doctor's office as soon as you can. ?? Do not have sex until the bleeding stops. ?? You may return to your normal activities if you feel well enough to do so. But you should avoid heavy exercise until the bleeding stops. ?? If you plan to get again, check with your doctor. Most doctors suggest waiting until youhave had at least one normal period before you try to get . ?? If you do not want to get , ask your doctor about control. You can get again before your next period starts if you are not using control. ?? You may be low in iron because of blood loss. Eat a balanced diet that is high in iron and vitamin C. Foods rich in iron include red meat, shellfish, eggs, beans, and leafy green vegetables. Foods high in vitamin C include citrus fruits, tomatoes, and broccoli. Talk to your doctor about whether youneed to take iron pills or a multivitamin. ?? The loss of a can be very hard. You may wonder why it happened and blame yourself. Talking to family members, friends, a counselor, or your doctor may help you cope with your loss. When should you call for help? Call 911 anytime you think you may need emergency care. For example, call if: ?? You have sudden, severe pain in your belly or pelvis. ?? You passed out (lost consciousness). ?? You have severe vaginal bleeding. Call your doctor now or seek immediate medical care if: ?? You are dizzy or lightheaded, or you feel like you may faint. ?? You have new or increased pain in your belly or pelvis. ?? Your vaginal bleeding is getting worse. ?? You have increased pain in the vaginal area. ?? You have a fever. Watch closely for changes in your health, and be sure to contact your doctor if: ?? You have new or worse vaginal discharge. ?? You do not get better as expected. Where can you learn more? Log into your personal health record on https://[employer].Benky[employer] Player and enter E802 in the Education box to learn more about Miscarriage: Care Instructions. Current as of: January 24, 2016 Content Version: 11.2 ?? 5582-0686 [email or web address]. Care instructions adapted under license by your healthcare professional. If you have questions about a medical condition or this instruction, always ask your healthcare professional. [employer] disclaims any warranty or liability for your use of this information. in this encounter Miscellaneous Notes ED Notes - Samantha Loya RN - 10/12/2017 7:40 AM ESTPt reports a documented allergy to flagyl, meds refused. Pt states she has a topical at home for trichemonas and will take. Pt feels good when she sits up (no dizziness or nausea, pain is subsided).Reviewed D/c instructions with pt, no questions.ED Notes - Liberty Cleaning RN - 10/12/2017 7:08 AM ESTPer OB, pt ok to be d/c'd following admin of flagylAssessment & Plan Note - Edil Boles MD - 10/12/2017 4:22 AM ESTAssociated Problem(s): Spontaneous abortionTasneem Dudley is 22 y.o. with history of ongoing missed AB presenting to [facility] for increased vaginal bleeding and abdominal cramping. [...] has some echogenic debris probably representing some blood products probably representing patient's incomplete . - Pt stable for discharge. Pain is significantly improved following removal of clot and products and staying in ED. ED Notes - Liberyt Cleaning, HUY - 10/12/2017 3:00 AM ESTOB cartsideED Notes - Liberty Cleaning RN - 10/12/2017 2:08 AM ESTPt arrives with c/o lower abd pain, pt states she was told at dr's office that she was miscarrying approx 3 wks ago, pt states she had some vaginal spotting but today she developed large clots as well as abd pain. Pt states she has been soaking a pad an hr since approx 2100ED Triage Notes - Elicia Castillo RN - 10/12/2017 1:57 AM ESTPt to desk in wheelchair stating i'm going through miscarriage. Dx miscarriage x3wk ago, just started bleeding today passing clots. Saturating 5-6pads/hr and changed pants per pt. Pain lower abdomen.States she's dizzy, lightheaded, and is notably pale.in this encounter Plan of Treatment Health Maintenance Due Date Last Done Comments ANNUAL EXAM 1997 TETANUS EVERY 10 YR 1997 HPV VACCINES (1 of 3 - Female 3 Dose Series) 2008 CHLAMYDIA SCREENING 2012 SEQUENTIAL INFLUENZA VACCINE (#1) 2017 as of this encounter Results CBC (10/12/2017 6:03 AM) Component Value Ref Range WBC 17.00 (H) 4.50 - 11.00 K/mcL RBC 2.77 (L) 4.00 - 5.20 M/mcL Hemoglobin 9.1 (L) 12.0 - 16.0 g/dL Hematocrit 26.3 (L) 36.0 - 46.0 % MCV 94.9 80.0 - 100.0 fL MCH 32.9 26.0 - 34.0 pg MCHC 34.6 31.0 - 37.0 g/dL Platelets 153 150 - 400 K/mcL RDW - CV 13.2 11.6 - 14.8 % MPV 10.3 9.0 - 15.5 fL Nucleated RBC 0.0 % Nucleated RBC Abs 0.00 0.00 - 0.00 K/mcL Specimen Performing Laboratory Blood [facility] [address] Pelvic Transabdominal and Transvaginal (10/12/2017 4:46 AM) Specimen Performing Laboratory [facility] Impressions 1. There is an irregular-appearing somewhat elongated, ovoid structure in the cervical canal with no obvious identifiable parts.?This has some echogenic debris probably representing some blood products probably representing patient's incomplete . 2. Corpus luteal cyst at the right ovary with normal flow to the right ovary. 3. Normal-appearing left ovary. 4. Small amount of free fluid within the posterior cul-de-sac. [employer]Live[employer] Workstation ID:? [id number] Narrative CLINICAL HISTORY: Incomplete . EXAMINATION: PELVIC ULTRASOUND:?10/12/2017. COMPARISON: Pelvic ultrasound 09/18/[address] [facility]. TECHNIQUE: Static images from real-time examination using gill-scale, color Doppler sonography using transvaginal, transabdominal ultrasound are provided. FINDINGS: TRANSABDOMINAL ULTRASOUND:?The uterus is anteverted measuring 10.3 cm in sagittal, 5.3 cm in AP, 6.0 cm in transverse dimension with an irregular-appearing ovoid-appearing structure in the cervical canal measuring 1.2 x 4.5 cm.?The right ovary measures 2.5 x 3.1 x 3.0 cm with an anechoic structure measuring 1.8 x 1.7 x 1.9 cm.?There is normal flow in the surrounding right ovary with resistive index of 0.3.?The left ovary measures 2.1 x 1.6 x 1.8 cm with normal flow and resistive index of 0.51. TRANSVAGINAL ULTRASOUND:?The uterus seems normal however in the lower uterine segment there is an irregular-appearing structure which has some hazy density or echogenicity.?This measures 1.1 x 2.8 cm.?This has no contents.?There is small amount of free fluid within the posterior cul-de-sac. The right ovary measures 2.6 x 2.7 x 2.7 cm with an anechoic structure measuring 1.5 x 1.5 x 1.9 cm with thin palomino, good through transmission without internal echoes.?The left ovary could not be visualized. Procedure Note Interface, Rad In Eve Speechq - 10/12/2017 5:40 AM EST CLINICAL HISTORY: Incomplete . EXAMINATION: PELVIC ULTRASOUND: 10/12/2017. COMPARISON: Pelvic ultrasound 09/18/[address] [facility]. TECHNIQUE: Static images from real-time examination using gill-scale, color Doppler sonography using transvaginal, transabdominal ultrasound are provided. FINDINGS: TRANSABDOMINAL ULTRASOUND: The uterus is anteverted measuring 10.3 cm in sagittal, 5.3 cm in AP, 6.0 cm in transverse dimension with an irregular-appearing ovoid- appearing structure in the cervical canal measuring 1.2 x 4.5 cm. The right ovary measures 2.5 x 3.1 x 3.0 cm with an anechoic structure measuring 1.8 x 1.7 x 1.9 cm. There is normal flow in the surrounding right ovary with resistive index of 0.3. The left ovary measures 2.1 x 1.6 x 1.8 cm with normal flow and resistive index of 0.51. TRANSVAGINAL ULTRASOUND: The uterus seems normal however in the lower uterine segment there is an irregular-appearing structure which has some hazy density or echogenicity. This measures 1.1 x 2.8 cm. This has no contents. There is small amount of free fluid within the posterior cul-de-sac. The right ovary measures 2.6 x 2.7 x 2.7 cm with an anechoic structure measuring 1.5 x 1.5 x 1.9 cm with thin palomino, good through transmission without internal echoes. The left ovary could not be visualized. IMPRESSION: 1. There is an irregular-appearing somewhat elongated, ovoid structure in the cervical canal with no obvious identifiable parts. This has some echogenic debris probably representing some blood products probably representing patient's incomplete . 2. Corpus luteal cyst at the right ovary with normal flow to the right ovary. 3. Normal-appearing left ovary. 4. Small amount of free fluid within the posterior cul-de-sac. [employer]/Live[employer] Workstation ID: [id number] hCG, Blood, Quantitative (10/12/2017 2:18 AM) Component Value Ref Range hCG Quant 2,386 (H) 0 - 5 mIU/mL Specimen Performing Laboratory Blood [facility] [address] [place] [id number] Narrative Males and non females:?<5 mIU/mL Females during : 3-4 weeks?9-130 mIU/mL 4-5 weeks?75-2600 mIU/mL 5-6 weeks?850-20,800 mIU/mL 6-7 weeks?4000-100,200 mIU/mL 7-12 weeks? 11,500-289,000 mIU/mL 12-16 weeks?18,300-137,000 mIU/mL 16-29 weeks?1,400-53,000 mIU/mL 29-41 weeks?940-60,000 mIU/mL Mireles Top (10/12/2017 2:18 AM) Component Value Ref Range Extra Tube Hold for add-ons.Comment: Auto resulted. Specimen Performing Laboratory Blood [facility] [address] [place] [id number] Gold Top (10/12/2017 2:18 AM) Component Value Ref Range Extra Tube Hold for add-ons.Comment: Auto resulted. Specimen Performing Laboratory Blood [facility] [address] [place] [id number] [place] Draw (10/12/2017 2:18 AM) Specimen Performing Laboratory Blood Narrative The following orders were created for panel order [place] Draw. Procedure? Abnormality? Status? ---------? ------? [facility][[id number]]? Final result? [facility][[id number]]? Final result? Please view results for these tests on the individual orders. CBC Auto Differential (10/12/2017 2:18 AM) Component Value Ref Range WBC 16.83 (H) 4.50 - 11.00 K/mcL RBC 3.24 (L) 4.00 - 5.20 M/mcL Hemoglobin 10.5 (L) 12.0 - 16.0 g/dL Hematocrit 30.5 (L) 36.0 - 46.0 % MCV 94.1 80.0 - 100.0 fL MCH 32.4 26.0 - 34.0 pg MCHC 34.4 31.0 - 37.0 g/dL Platelets 202 150 - 400 K/mcL RDW - CV 13.2 11.6 - 14.8 % MPV 10.4 9.0 - 15.5 fL Neutrophils 84.3 % Lymphocytes 10.9 % Monocytes 3.4 % Eosinophils 0.4 % Basophils 0.4 % IG Percent 0.60Comment: The IG parameter is the percentage % of metamyelocytes, myelocytes, and promyelocytes. Neutrophils Abs 14.20 (H) 1.70 - 7.00 K/mcL Lymphocytes Abs 1.83 0.90 - 4.00 K/mcL Monocytes Abs 0.57 0.30 - 0.90 K/mcL Eosinophils Abs 0.07 0.00 - 0.50 K/mcL Basophils Abs 0.06 0.00 - 0.30 K/mcL IG Absolute 0.10 0.00 - 0.30 K/mcL Nucleated RBC 0.0 % Nucleated RBC Abs 0.00 0.00 - 0.00 K/mcL Specimen Performing Laboratory Blood [facility] [address] [place] [address] Type and Screen (10/12/2017 2:18 AM) Component Value Ref Range ABORh AB Positive Antibody Screen Negative Specimen Expires 10/15/2017 23:59 EST Specimen Performing Laboratory Blood [facility] [address] [place] [address] PT/INR (10/12/2017 2:18 AM) Component Value Ref Range Protime (PT) 14.3 11.8 - 14.3 seconds INR 1.1 0.8 - 1.1 Specimen Performing Laboratory Blood [facility] [address] [place] [id number] Narrative During the induction phase of oral anticoagulation, the INR may not reflect the anticoagulation status of the patient. Therapeutic ranges for INR's are: Most clinical situations: INR 2.0-3.0 Mechanical Prosthetic Valve: INR 2.5-3.5 Critical: INR >5.0 Basic Metabolic Panel (10/12/2017 2:18 AM) Component Value Ref Range Sodium 138 135 - 145 mmol/L Potassium 3.6 3.5 - 5.1 mmol/L Chloride 103 98 - 108 mmol/L Bicarbonate 22 21 - 32 mmol/L Anion Gap 17 10 - 20 mmol/L Glucose 145 (H) 65 - 99 mg/dL BUN 9 8 - 25 mg/dL Creatinine 0.60 0.40 - 1.10 mg/dL eGFR 132 >=60 mL/min/1.73 m2 BUN/Creatinine Ratio 15.0 10.0 - 20.0 Calcium 9.1 8.4 - 10.2 mg/dL Specimen Performing Laboratory Blood [facility] [address] [place] [address] Narrative The eGFR should be used for monitoring renal function only and not for medication dosing. CBC and Differential (10/12/2017 2:18 AM) Specimen Performing Laboratory Blood Narrative The following orders were created for panel order CBC and Differential. Procedure? Abnormality? Status? ---------? ------? CBC Auto Differential[[id number]]?Abnormal?Final result? Please view results for these tests on the individual orders. in this encounter Visit Diagnoses Diagnosis Spontaneous - Primary Administered Medications Inactive Administered Medications - up to 3 most recent administrations Medication Order MAR Action Action Date Dose Rate Site azithromycin (ZITHROMAX) tablet Given 10/12/2017 05:24 EST 1,000 mg 1,000 mg 1,000 mg, Oral, Once, 10/12/17 at 0415, For 1 dose, Indication: Other (specify) fentaNYL (SUBLIMAZE) injection 50 mcg Given 10/12/2017 02:39 EST 50 mcg 50 mcg, Intravenous, Once, Sun10/12/17 at 0235, For 1 dose in this encounter Insurance Payer Benefit Plan / Group Subscriber ID Type Phone Address [facility] MANAGED MEDICAID [employer] MEDICAID COMMUNITY PLAN [id number] Work: [address] [phone] [place], [place] Home: [phone] as of this encounter
--- OUTSIDE RECORDS SUMMARY | 2018-09-23 14:41 | XMS RPT_ITS | Summary of Care ---
:1995 Author Organization [facility] Address [address] [place] [address] Phone Care Team Providers Name Role Phone Yanet Barnes MD Primary Care Provider Encounter Details Date Type Department Care Team Description 09/29/2017 Documentation [facility] Labor Josette Ku & Delivery MD [place] [id number] [place] [address] Allergies Active Allergy Reactions Severity Noted Date [...] 09/03/2017 Last Assessment & Plan: Will recheck CG today. Continue vitamins. Social History Tobacco Use [...] file as of this encounter Progress Notes Egwakhe, Josette Adekemi, MD - 09/30/2017 12:29 AM ESTERROR.in this encounter Miscellaneous Notes Quick Note - Josette Ku MD - 09/29/2017 9:39 PM ESTOB [facility]: Received call from Yoni ANAND at [facility] ED. I did not speak to patient directly. Patient was being seen there for near syncope event. Was given 1 L NS and felt better. Prior to discharge had told the PA that she had an ultrasound done which showed an abnormal . Out of concern another ultrasound was done at [facility] which revealed a 6w6d gestational sac, no pole, concerning for missed . At this point patient now told. That she was aware of this. Patient denies any vaginal bleeding or abdominal pain. Will be given copy of results of US. Thank Yoni for updating us on care of patient. Was told by Yoni that patient had upcoming office appointment. However none noted when reviewed chart. We will routes note to office team so that patient can be called to make an appointment for follow-up. Josette Ku MD Family Medicine, PGY 2 Pager: [phone] in this encounter Plan of Treatment Health Maintenance Due Date Last Done Comments ANNUAL EXAM 1997 TETANUS EVERY 10 YR 1997 HPV VACCINES (1 of 3 - Female 3 Dose Series) 2008 CHLAMYDIA SCREENING 2012 SEQUENTIAL INFLUENZA VACCINE (#1) 2017 as of this encounter Insurance Payer Benefit Plan / Group Subscriber ID Type Phone Address [facility] MANAGED MEDICAID [facility] MEDICAID COMMUNITY PLAN [id number] as of this encounter
--- OUTSIDE RECORDS SUMMARY | 2018-09-23 14:41 | XMS RPT_ITS | Summary of Care ---
:1995 Author Organization [facility] Address [address] [place] [address] Phone Care Team Providers Name Role Phone No, Physician Primary Care Provider Unavailable Reason for Visit Reason Comments Follow-up Seen at [facility] on 06.25.17. All reports available in chart Allergic Reaction Vomiting everytime she takes the flagyl Encounter Details Date Type Department Care Team Description 06/29/2017 Office Visit [facility] Yanet Barnes MD Threatened miscarriage Medicine [place] [phone] Allergies Active Allergy Reactions Severity Noted Date Comments Amoxicillin Hives 03/01/2017 Metronidazole GI Intolerance 06/29/2017 as of this encounter Medications Prescription Sig. Disp. Refills Start Date End Date Status prenat.vits,jose juan,min-iro Take 1 tablet 30 each 0 06/26/2017 07/26/2017 Active n-folic ( by mouth daily. VITAMIN) Tab metroNIDAZOLE (FLAGYL) Take 1 (one) 14 tablet 0 06/26/2017 07/03/2017 Active 500 MG tablet tablet (500 mg total) by mouth 2 (two) times a day with meals for 7 days. as of this encounter Active Problems Problem Noted Date Threatened miscarriage 06/29/2017 Last Assessment & Plan: Concern for miscarriage considering low/stable bhCG and cramping. Has not experienced any vaginal bleeding yet. Ultrasound report not clear regarding location of possible . Will order another ultrasound to be completed next week. Continue to closely monitor weekly bhCG. Discussed [...] Vital Sign Reading Time Taken Blood Pressure 118/76 06/29/2017 9:57 AM EDT Pulse 107 06/29/2017 9:57 AM EDT Temperature 37 ??C (98.6 ??F) 06/29/2017 9:57 AM EDT Respiratory Rate 16 06/29/2017 9:57 AM EDT Oxygen Saturation 98% 06/29/2017 9:57 AM EDT Inhaled Oxygen Concentration - - Weight 63.4 kg (139 lb 12.8 oz) 06/29/2017 9:57 AM EDT Height 182.9 cm (6') 06/29/2017 9:57 AM EDT Body Mass Index 18.96 06/29/2017 9:57 AM EDT in this encounter Instructions Patient Instructions - Yanet Barnes MD - 06/29/2017 10:34 AM [facility] [phone] to schedule the ultrasound.in this encounter Progress Notes Yanet Barnes MD - 07/03/2017 1:08 PM ESTFormatting of this note may be different from the original. Tasneem Dudley is a 21 y.o. female Assessment/Plan: Problem List Items Addressed This Visit Other Threatened miscarriage Concern for miscarriage considering low/stable bhCG and cramping. Has not experienced any vaginal bleeding yet. Ultrasound report not clear regarding location of possible . Will order another ultrasound to be completed next week. Continue to closely monitor weekly bhCG. Discussed red flags for ectopic for which to report to ED. Of note, was desired. Relevant Orders hCG, Blood, Quantitative (Completed) Return in about 2 weeks (around 07/13/2017) for Follow Up Threatened Miscarriage. Tasneem Dudley is a 21 y.o. female who presents for Chief Complaint Patient presents with ??? Follow-up Seen at [facility] on 06.25.17. All reports available in chart ??? Allergic Reaction Vomiting everytime she takes the flagyl HPI - Concern for miscarriage: Missed period and had positive test at home, but then began to experience significant cramping, so went to ED. Ultrasound report from ED not clear regarding status/location of the . bhCG was low, so ED provider ordered a repeat lab to trend it and advised p atient to establish care with PCP. Has continued to experience mild cramping - no vaginal bleeding. was desired. Her significant other has been a good support system. Patient Active Problem List Diagnosis SNOMED CT(R) ??? Threatened miscarriage THREATENED MISCARRIAGE No past surgical history on file. Social History Substance Use Topics ??? Smoking status: Current Every Day Smoker Packs/day: 0.50 Types: Cigarettes ??? Smokeless tobacco: Never Used ??? Alcohol use Yes Comment: Socially Current Outpatient Prescriptions Medication Sig ??? prenat.vits,jose juan,wjv-blds-ybyjw ( VITAMIN) Tab Take 1 tablet by mouth daily. ??? metroNIDAZOLE (FLAGYL) 500 MG tablet Take 1 (one) tablet (500 mg total) by mouth 2 (two) times aday with meals for 7 days. Review of Systems Constitutional: Negative for activity change, fatigue and fever. Cardiovascular: Negative for palpitations. Gastrointestinal: Positive for abdominal pain. Negative for constipation. Genitourinary: Positive for pelvic pain. Negative for vaginal bleeding, vaginal discharge and vaginal pain. Skin: Negative for rash. Neurological: Negative for dizziness, light-headedness and headaches. Psychiatric/Behavioral: Negative for self-injury, sleep disturbance and suicidal ideas. The patient is not nervous/anxious. Physical Exam: BP 118/76 (BP Location: Left arm, Patient Position: Sitting, BP Cuff Size: Adult) Pulse (!) 107 Temp 98.6 ??F (37 ??C) (Oral) Resp 16 Ht 6' Wt 63.4 kg (139 lb 12.8 oz) LMP 05/21/2017 SpO2 98% BMI 18.96 kg/m2 Wt Readings from Last 3 Encounters: 06/29/17 63.4 kg (139 lb 12.8 oz) (69 %, Z= 0.49)* 06/25/17 63.5 kg (140 lb) (69 %, Z= 0.49)* 04/25/17 61.7 kg (136 lb) (64 %, Z= 0.35)* * Growth percentiles are based on [facility] 2-20 Years data. BP Readings from Last 3 Encounters: 06/29/17 118/76 06/26/17 118/76 04/25/17 (!) 95/48 Physical Exam Constitutional: She appears well-developed and [...] Plan Note - Yanet Barnes MD - 07/03/2017 1:10 PM EST Associated Problem(s): Threatened miscarriageConcern for miscarriage considering low/stable bhCG and cramping. Has not experienced any vaginal bleeding yet. Ultrasound report not clear regarding location of possible . Will order another ultrasound to be completed next week. Continue to closely monitor weekly bhCG. Discussed red flags for ectopic for which to report to ED. Of note, was desired.in this encounter Plan of Treatment Upcoming Encounters Date Type Specialty Care Team Description 07/05/2017 Routine Primary Care Yanet Barnes MD [address] [place] [address] 07/12/2017 Routine Primary Care Yanet Barnes MD [address] [place] [address] Health Maintenance Due Date Last Done Comments TETANUS EVERY 10 YR 1997 HPV VACCINES (1 of 3 - Female 3 Dose Series) 2008 SEQUENTIAL INFLUENZA VACCINE (#1) 2017 as of this encounter Results hCG, Blood, Quantitative (06/29/2017 10:41 AM) Component Value Ref Range hCG Quant 561 (H) 0 - 5 mIU/mL Specimen Performing Laboratory Blood [facility] [address] [place] [address] Narrative Males and non females:?<5 mIU/mL Females during : 3-4 weeks?9-130 mIU/mL 4-5 weeks?75-2600 mIU/mL 5-6 weeks?850-20,800 mIU/mL 6-7 weeks?4000-100,200 mIU/mL 7-12 weeks? 11,500-289,000 mIU/mL 12-16 weeks?18,300-137,000 mIU/mL 16-29 weeks?1,400-53,000 mIU/mL 29-41 weeks?940-60,000 mIU/mL in this encounter Visit Diagnoses Diagnosis Threatened miscarriage Threatened , unspecified as to episode of care in this encounter Insurance Payer Benefit Plan / Group Subscriber ID Type Phone Address [employer] MANAGED MEDICAID [employer] MEDICA[employer] COMM[employer]AN [id number] as of this encounter
--- OUTSIDE RECORDS SUMMARY | 2018-09-23 14:41 | XMS RPT_ITS | Summary of Care ---
:1995 Author Organization [facility] Address [address] [place] [id number] Care Team Providers Name Role Phone Yanet Barnes MD Primary Care Provider Reason for Visit Reason Comments Follow-up follow up from recent [facility] ED visit for spontaneous Encounter Details Date Type Department Care Team Description 10/15/2017 Patient Outreach [facility] Denia Lynch, Follow-up (follow up Medicine Jose M RN from recent [facility] ED [address] visit for spontaneous [address] ) [place] [phone] Allergies Active Allergy Reactions Severity Noted Date Comments Amoxicillin Hives 03/01/2017 Metronidazole GI Intolerance 06/29/2017 as of this encounter Medications No known medicationsas of this encounter Active Problems Problem Noted [...] history of ongoing missed AB presenting to [facility] for increased vaginal bleeding and abdominal cramping. [...] file as of this encounter Progress Notes Denia Camargo RN - 10/15/2017 9:44 AM ESTRN attempted to reach patient d/t spontaneous from [facility] ED on 10/12/2017. LVM for patient to return call to schedule a f/u appointment and ro call with any questions or concerns. Denia Camargo RNin this encounter Plan of Treatment Health Maintenance Due Date Last Done Comments ANNUAL EXAM 1995 TETANUS EVERY 10 YR 1997 HPV VACCINES (1 of 3 - Female 3 Dose Series) 2008 CHLAMYDIA SCREENING 2012 SEQUENTIAL INFLUENZA VACCINE (#1) 2017 as of this encounter Insurance Payer Benefit Plan / Group Subscriber ID Type Phone Address [facility] MEDICAID [facility] MEDICAID COMMUNITY PLAN xxxxxxxxx as of this encounter
--- OUTSIDE RECORDS SUMMARY | 2018-09-23 14:41 | XMS RPT_ITS | Summary of Care ---
:1995 Author Organization [facility] Address [address] [place] [address] Phone Care Team Providers Name Role Phone Yanet Barnes MD Primary Care Provider Reason for Visit Reason Comments Initial Visit Encounter Details Date Type Department Care Team Description 09/14/2017 Initial [facility] Family Medicine Yanet Barnes MD [place]: 6w5d [place] [address] [facility] [address] [facility] [address] [place] [address] [place] [address] [phone] Allergies Active Allergy Reactions Severity Noted Date [...] Vital Sign Reading Time Taken Blood Pressure 112/64 09/14/2017 3:09 PM EST Pulse 100 09/14/2017 3:09 PM EST Temperature 36.4 ??C (97.5 ??F) 09/14/2017 3:09 PM EST Respiratory Rate 16 09/14/2017 3:09 PM EST Oxygen Saturation 98% 09/14/2017 3:09 PM EST Inhaled Oxygen Concentration - - Weight 62.4 kg (137 lb 8 oz) 09/14/2017 3:09 PM EST Height - - Body Mass Index 18.22 09/14/2017 3:09 PM EST in this encounter Progress Notes Yanet Barnes MD - 09/14/2017 5:01 PM ESTFormatting of this note may be different from the original. Tasneem Dudley is a 22 y.o. female here for OB follow up at 6w5d A/P: Problem List Items Addressed This Visit Other Supervision of low-risk - Primary Dates by LMP 6w5d c/w 6w0d u/s complications: tobacco use, varicella equivocal Initial labs: AB positive, hep B neg, HIV neg, RPR nonreactive, rubella immune, varicella equivocal Relevant Orders Chlamydia/GC/Trichomonas Amplified RNA US Obstetric 1st Trimester Single Fetus (Completed) Tobacco use during Desires to quit. Will start on patch and taper off. Will need growth scan. Relevant Medications nicotine (NICODERM CQ) 14 mg/24 hr Return in about 1 month (around 10/15/2017) for . HPI: Feeling slightly nauseous but tolerating PO intake without concern Still smoking between a third and half a pack of cigarettes a day No other concerns or questions at this time ROS: No vaginal bleeding No contractions No loss of fluid No change in vaginal discharge No emesis, tolerating diet No GERD Taking vitamins Patient Active Problem List Diagnosis SNOMED CT(R) ??? Encounter for tobacco use cessation counseling PATIENT ENCOUNTER STATUS ??? Need for varicella vaccine REQUIRES VACCINATION ??? Supervision of low-risk LOW RISK ??? Tobacco use during MATERNAL TOBACCO USE OB History Para Term AB Living 2 1 0 SAB TAB Ectopic Multiple Live Births 1 Past Surgical History: Procedure Laterality Date ??? denies Social History Substance Use Topics ??? Smoking status: Current Every Day Smoker Packs/day: 0.50 Years: 1.00 Types: Cigarettes ??? Smokeless tobacco: Never Used Comment: '' I'm cutting down'' started smoking one year ago ??? Alcohol use No Comment: denies this Medication Sig ??? nicotine (NICODERM CQ) 14 mg/[address] 1 (one) patch on the skin daily. ??? prenat.vits,jose juan,zlq-rqik-entrl ( VITAMIN) Tab Take 1 tablet by mouth daily. No current facility-administered medications for this visit. Exam: BP 112/64 Pulse (!) 100 Temp 97.5 ??F (36.4 ??C) (Temporal) Resp 16 Wt 62.4 kg (137 lb 8oz) LMP 07/29/2017 (Exact Date) SpO2 98% BMI 18.22 kg/m?? FHTs n/a Fundal Height n/a Transabdominal ultrasound - Single intrauterine visualized. Gestational sac and yolk sac visualized. No cardiac activity visualized at this point. Were unable to measure CRL based on transabdominal ultrasound, so transitioned to transvaginal ultrasound. Transvaginal ultrasound - Single intrauterine visualized. Gestational sac and yolk sac visualized. CRL measuring at 6w0d ultrasound which is consistent with her LMP dating by 5 days. No cardiac activity visualized at this point.in this encounter Miscellaneous Notes Assessment & Plan Note - Yanet Barnes MD - 09/14/2017 5:13 PM EST Associated Problem(s): Tobacco use during pregnancyDesires to quit. Will start on patch and taper off. Will need growth scan.Assessment & Plan Note - Yanet Barnes MD - 09/14/2017 5:12 PM ESTAssociated Problem(s): Encounter for tobacco use cessation counseling (Deleted)Desires to quit. Will start on patch and taper off. Will need growth scan.Assessment & Plan Note - Yanet Barnes MD - 09/14/2017 5:12 PM ESTAssociated Problem(s): Supervision of low-risk Dates by LMP 6w5d c/w 6w0d u/s complications: tobacco use, varicella equivocal Initial labs: AB positive, hep B neg, HIV neg, RPR nonreactive, rubella immune, varicella equivocalin this encounter Plan of Treatment Scheduled Tests Name Priority Associated Diagnoses Order Schedule Chlamydia/GC/Trichomonas Routine Encounter for supervision 1 Occurrences starting Amplified RNA of low-risk in 09/14/2017 until first trimester 09/14/2018 Health Maintenance Due Date Last Done Comments ANNUAL EXAM 1997 TETANUS EVERY 10 YR 1997 HPV VACCINES (1 of 3 - Female 3 Dose Series) 2008 CHLAMYDIA SCREENING 2012 SEQUENTIAL INFLUENZA VACCINE (#1) 2017 as of this encounter Results US Obstetric TransvaginaL First Trimester (09/14/2017 5:16 PM) Specimen Performing Laboratory Embedded Chat Narrative Single intrauterine visualized. Gestational sac and yolk sac visualized. CRL measuring at 6w0d ultrasound which is consistent with her LMP dating by 5 days. No cardiac activity visualized at this point. US Obstetric 1st Trimester Single Fetus (09/14/2017 4:59 PM) Specimen Performing Laboratory [facility] [place] Narrative Single intrauterine visualized. Gestational sac and yolk sac visualized. No cardiac activity visualized at this point. Were unable to measure CRL based on transabdominal ultrasound, so transitioned to transvaginal ultrasound. in this encounter Visit Diagnoses Diagnosis Encounter for supervision of low-risk in first trimester - Primary Maternal tobacco use in first trimester Insurance Payer Benefit Plan / Group Subscriber ID Type Phone Address [employer] MANAGED MEDICAID [employer] MEDICAID COMM[employer]ITY PLAN [id number] Home: [address] [phone] [address] as of this encounter
--- OUTSIDE RECORDS SUMMARY | 2018-09-23 14:41 | XMS RPT_ITS | Summary of Care ---
:1995 Author Organization [facility] Address [address] [place] [address] Phone Care Team Providers Name Role Phone No, Physician Primary Care Provider Unavailable Reason for Visit Reason Comments Abdominal Pain Encounter Details Date Type Department Care Team Description 06/25/2017 - Emergency [facility] Ankur Ugarte Pelvic pain during 06/26/2017 Hospital Emergency MD [facility] (Primary Department [address] [facility] Dx);Abnormal [address] [place] pelvis;BV (bacterial [place] [id number] [facility] vaginosis) [phone] [place] [address] [phone] Allergies Active Allergy Reactions Severity Noted Date Comments Amoxicillin Hives 03/01/2017 as of this encounter Medications Prescription Sig. [...] for 7 days. as of this encounter Social History Tobacco Use Types Packs/Day Years Used Date Current Every Day Smoker Cigarettes 1 Smokeless Tobacco: Never Used Alcohol Use Drinks/Week oz/Week Comments Yes Socially Sex Assigned at Date Recorded Not on file as of this encounter Last Filed Vital Signs Vital Sign Reading Time Taken Blood Pressure 118/76 06/26/2017 1:11 AM EDT Pulse 84 06/26/2017 1:11 AM EDT Temperature 36.7 ??C (98 ??F) 06/25/2017 8:35 PM EDT Respiratory Rate 16 06/26/2017 1:11 AM EDT Oxygen Saturation 97% 06/26/2017 1:11 AM EDT Inhaled Oxygen Concentration - - Weight 63.5 kg (140 lb) 06/25/2017 8:35 PM EDT Height 182.9 cm (6') 06/25/2017 8:35 PM EDT Body Mass Index 18.99 06/25/2017 8:35 PM EDT in this encounter Discharge Instructions Gris Ash CNP - 06/26/2017Belly Pain in : Care Instructions Your Care Instructions When you're , any belly pain can be a worry. You may not want to call your doctor about every pain you have. But you don't want to miss something that is dangerous for you or your baby. Even if it feels familiar, belly pain can mean something new when you're . It's important to know when to call your doctor. It will also help to know how to care for yourself at home when your pain is not caused by anything harmful. ?? When belly pain is more severe or constant, see a doctor right away. ?? If you're sure your belly pain is a sign of labor, call your doctor. ?? When belly pain is brief, it's usually a normal part of . It might be related to changesin the growing uterus. Or it could be the stretching of ligaments called round ligaments. These ligaments help support the uterus. Round ligament pain can be on either side of your belly. It can also be felt in your hips or groin. Follow-up care is a riddle part of your treatment and safety. Be sure to make and go to all appointments, and call your doctor if you are having problems. It's also a good idea to know your test results and keep a list of the medicines you take. How can you tell if belly pain is a sign of labor? When belly pain is caused by labor, it can feel like mild or menstrual-like cramps in your lower belly. These cramps are probably contractions. They can happen in your second or third trimester. You may also have: ?? A steady, dull ache in your lower back, pelvis, or thighs. ?? A feeling of pressure in your pelvis or lower belly. ?? Changes in your vaginal discharge or a sudden release of fluid from the vagina. If you think you are in labor, call your doctor. How can you care for yourself at home? When belly pain is mild and is not a symptom of labor: ?? Rest until you feel better. ?? Take a warm bath. ?? Think about what you drink and eat: ?? Drink plenty of fluids. Choose water and other caffeine-free clear liquids until you feel better. ?? Try eating small, frequent meals. If your stomach is upset, try bland, low- fat foods like plain rice, broiled chicken, toast, and yogurt. ?? Think about how you move if you are having brief pains from stretching of the round ligaments. ?? Try gentle stretching. ?? Move a little more slowly when turning in bed or getting up from a chair, so those ligaments don't stretch quickly. ?? Lean forward a bit if you think you are going to cough or sneeze. When should you call for help? Call 911 anytime you think you may need emergency care. For example, call if: ?? You have sudden, severe pain in your belly. ?? You have severe vaginal bleeding. Call your doctor now or seek immediate medical care if: ?? You have new or worse belly pain or cramping. ?? You have any vaginal bleeding. ?? You have a fever. ?? You have symptoms of preeclampsia, such as: ?? Sudden swelling of your face, hands, or feet. ?? New vision problems (such as dimness or blurring). ?? A severe headache. ?? You think that you may be in labor. This means that you've had at least 8 contractions within 1 hour or at least 4 contractions within 20 minutes, even after you change your position and drink fluids. ?? You have symptoms of a urinary tract infection. These may include: ?? Pain or burning when you urinate. ?? A frequent need to urinate without being able to pass much urine. ?? Pain in the flank, which is just below the rib cage and above the waist on either side of the back. ?? Blood in your urine. Watch closely for changes in your health, and be sure to contact your doctor if you are worried about your or your baby's health. Where can you learn more? Log into your personal health record on https://TabletKioskhart[employer] and enter B275 in the Education box to learn more about Belly Pain in : Care Instructions. Current as of: February 02, 2016 Content Version: 11.2 ?? 1275-9860 360[employer]. Care instructions adapted under license by your healthcare professional. If you have questions about a medical condition or this instruction, always ask your healthcare professional. [employer] disclaims any warranty or liability for your use of this information. Bacterial Vaginosis: Care Instructions Your Care Instructions Bacterial vaginosis is a type of vaginal infection. It is caused by excess growth of certain bacteria that are normally found in the vagina. Symptoms can include itching, swelling, pain when you urinate or have sex, and a gill or yellow discharge with a fishy odor. It is not considered an infection that is spread through sexual contact. Although symptoms can be annoying and uncomfortable, bacterial vaginosis does not usually cause other health problems. However, if you have it while you are , it can cause complications. While the infection may go away on its own, most doctors use antibiotics to treat it. You may have been prescribed pills or vaginal cream. With treatment, bacterial vaginosis usually clears up in 5 to 7 days. Follow-up care is a riddle part of your treatment and safety. Be sure to make and go to all appointments, and call your doctor if you are having problems. It's also a good idea to know your test results and keep a list of the medicines you take. How can you care for yourself at home? ?? Take your antibiotics as directed. Do not stop taking them just because you feel better. You needto take the full course of antibiotics. ?? Do not eat or drink anything that contains alcohol if you are taking metronidazole (Flagyl). ?? Keep using your medicine if you start your period. Use pads instead of tampons while using a vaginal cream or suppository. Tampons can absorb the medicine. ?? Wear loose cotton clothing. Do not wear nylon and other materials that hold body heat and moisture close to the skin. ?? Do not scratch. Relieve itching with a cold pack or a cool bath. ?? Do not wash your vaginal area more than once a day. Use plain water or a mild, unscented soap. Donot douche. When should you call for help? Watch closely for changes in your health, and be sure to contact your doctor if: ?? You have unexpected vaginal bleeding. ?? You have a fever. ?? You have new or increased pain in your vagina or pelvis. ?? You are not getting better after 1 week. ?? Your symptoms return after you finish the course of your medicine. Where can you learn more? Log into your personal health record on https://iCarsClubt[employer] and enter X360 in the Education box to learn more about Bacterial Vaginosis: Care Instructions. Current as of: June 08, 2016 Content Version: 11.2 ?? [id number] 360T. Care instructions adapted under license by your healthcare professional. If you have questions about a medical condition or this instruction, always ask your healthcare professional. [employer]T disclaims any warranty or liability for your use of this information. Learning About Your Care Instructions Your health in the early weeks of your is particularly important for your baby???s health.Take good care of yourself. Anything you do that harms your body can also harm your baby. Make sure to go to all of your doctor appointments. Regular checkups will help keep you and your baby healthy. Follow-up care is a riddle part of your treatment and safety. Be sure to make and go to all appointments, and call your doctor if you are having problems. It???s also a good idea to know your test resultsand keep a list of the medicines you take. How can you care for yourself at home? Diet ?? Eat a balanced diet. Make sure your diet includes plenty of beans, peas, and leafy green vegetables. ?? Do not skip meals or go for many hours without eating. If you are nauseated, try to eat a small, healthy snack every 2 to 3 hours. ?? Do not eat fish that has a high level of mercury, such as shark, swordfish, or mackerel. Do not eat more than one can of tuna each week. ?? Drink plenty of fluids, enough so that your urine is light yellow or clear like water. If you have kidney, heart, or liver disease and have to limit fluids, talk with your doctor before you increasethe amount of fluids you drink. ?? Cut down on caffeine, such as coffee, tea, and cola. ?? Do not drink alcohol, such as beer, wine, or hard liquor. ?? Take a multivitamin that contains at least 400 micrograms (mcg) of folic acid to help prevent defects. Fortified cereal and whole wheat bread are good additional sources of folic acid. ?? Increase the calcium in your diet. Try to drink a quart of skim milk each day. You may also take calcium supplements and choose foods such as cheese and yogurt. Lifestyle ?? Make sure you go to your follow-up appointments. ?? Get plenty of rest. You may be unusually tired while you are . ?? Get at least 30 minutes of exercise on most days of the week. Walking is a good choice. If you have not exercised in the past, start out slowly. Take several short walks each day. ?? Do not smoke. If you need help quitting, talk to your doctor about stop- smoking programs. These can increase your chances of quitting for good. ?? Do not touch cat feces or litter boxes. Also, wash your hands after you handle raw meat, and fully cook all meat before you eat it. Wear gloves when you work in the yard or garden, and wash your hands well when you are done. Cat feces, raw or undercooked meat, and contaminated dirt can cause an infection that may harm your baby or lead to a miscarriage. ?? Do not use saunas or hot tubs. Raising your body temperature may harm your baby. ?? Avoid chemical fumes, paint fumes, or poisons. ?? Do not use illegal drugs or alcohol. Medicines ?? Review all of your medicines with your doctor. Some of your routine medicines may need to be changed to protect your baby. ?? Use acetaminophen (Tylenol) to relieve minor problems, such as a mild headache or backache or a mild fever with cold symptoms. Do not use nonsteroidal anti-inflammatory drugs (NSAIDs), such as ibuprofen (Advil, Motrin) or naproxen (Aleve), unless your doctor says it is okay. ?? Do not take two or more pain medicines at the same time unless the doctor told you to. Many pain medicines have acetaminophen, which is Tylenol. Too much acetaminophen (Tylenol) can be harmful. ?? Take your medicines exactly as prescribed. Call your doctor if you think you are having a problemwith your medicine. To manage morning sickness ?? If you feel sick when you first wake up, try eating a small snack (such as crackers) before you get out of bed. Allow some time to digest the snack, and then get out of bed slowly. ?? Do not skip meals or go for long periods without eating. An empty stomach can make nausea worse. ?? Eat small, frequent meals instead of three large meals each day. ?? Drink plenty of fluids. Sports drinks, such as Gatorade or Powerade, are good choices. ?? Eat foods that are high in protein but low in fat. ?? If you are taking iron supplements, ask your doctor if they are necessary. Iron can make nausea worse. ?? Avoid any smells, such as coffee, that make you feel sick. ?? Get lots of rest. Morning sickness may be worse when you are tired. Where can you learn more? Log into your personal health record on https://[employer] and enter E868 in the Education box to learn more about Learning About . Current as of: January 24, 2016 Content Version: 11.2 ?? 9320-6078 360T. Care instructions adapted under license by your healthcare professional. If you have questions about a medical condition or this instruction, always ask your healthcare professional. [employer] disclaims any warranty or liability for your use of this information. Nutrition During : Care Instructions Your Care Instructions Healthy eating when you are is important for you and your baby. It can help you feel well and have a successful and delivery. During your nutrition needs increase. Even if you have excellent eating habits, your doctor may recommend a multivitamin to make sure you get enough iron and folic acid. Many women wonder how much weight they should gain. In general, women who were at a healthyweight before they became should gain between 25 and 35 pounds. Women who were overweight before are usually advised to gain 15 to 25 pounds. Women who were underweight before are usually advised to gain 28 to 40 pounds. Your doctor will work with you to set a weight goal that is right for you. Gaining a healthy amount of weight helps you have a healthy baby. Follow-up care is a riddle part of your treatment and safety. Be sure to make and go to all appointments, and call your doctor if you are having problems. It's also a good idea to know your test results and keep a list of the medicines you take. How can you care for yourself at home? ?? Eat plenty of fruits and vegetables. Include a variety of orange, yellow, and leafy dark-green vegetables every day. ?? Choose whole-grain bread, cereal, and pasta. Good choices include whole wheat bread, whole wheat pasta, brown rice, and oatmeal. ?? Get 4 or more servings of milk and milk products each day. Good choices include nonfat or low-fatmilk, yogurt, and cheese. If you cannot eat milk products, you can get calcium from calcium-fortified products such as orange juice, soy milk, and tofu. Other non-milk sources of calcium include leafy green vegetables, such as broccoli, kale, mustard greens, turnip greens, bok mj, and brussels sprouts. ?? If you eat meat, pick lower-fat types. Good choices include lean cuts of meat and chicken or turkey without the skin. ?? Do not eat shark, swordfish, dean mackerel, or tilefish. They have high levels of mercury, which is dangerous to your baby. You can eat up to 12 ounces a week of fish or shellfish that have low mercury levels. Good choices include shrimp, wild salmon, pollock, and catfish. Do not eat more than 6 ounces of tuna each week. ?? Heat lunch meats (such as turkey, ham, or bologna) to 165??F before you eat them. This reduces your risk of getting sick from a kind of bacteria that can be found in lunch meats. ?? Do not eat unpasteurized soft cheeses, such as brie, feta, fresh mozzarella, and blue cheese. They have a bacteria that could harm your baby. ?? Limit caffeine. If you drink coffee or tea, have no more than 1 cup a day. Caffeine is also foundin yamileth. ?? Do not drink any alcohol. No amount of alcohol has been found to be safe during . ?? Do not diet or try to lose weight. For example, do not follow a low- carbohydrate diet. If you areoverweight at the start of your , your doctor will work with you to manage your weight gain. ?? Tell your doctor about all vitamins and supplements you take. When should you call for help? Watch closely for changes in your health, and be sure to contact your doctor if you have any problems. Where can you learn more? Log into your personal health record on https://[employer] and enter Y785 in the Education box to learn more about Nutrition During : Care Instructions. Current as of: January 24, 2016 Content Version: 11.2 ?? 3013-9207 360T. Care instructions adapted under license by your healthcare professional. If you have questions about a medical condition or this instruction, always ask your healthcare professional. 360T disclaims any warranty or liability for your use of this information. in this encounter Miscellaneous Notes ED Attestation Note - Ankur Ugarte MD - 06/25/2017 11:53 PM EDTED Attestation: I have reviewed the non physician practitioner's documentation, personally taken thepatient's history, performed an exam and agree with the physical findings, clinical impression and management plan Patient is a 21-year-old female who presents to emerge from and for evaluation management regarding suprapubic abdominal discomfort. Positive test in the emergency department. Discussed this with the patient who is aware of this. Mild discharge with no bleeding. Pelvic exam was performedby the [facility] concern for discharge which was treated with antibiotic therapy in the emergency department. She was given medication for bacterial vaginosis as well. Patient had a beta-hCG in the 600s a transvaginal ultrasound was performed revealed evidence of a possible intrauterine with a corpus luteum cyst however cannot definitively say this. Radiologist also commented on a possible ruptured ectopic . I have a low suspicion for this however due to the patient's transvaginal ultrasound read of possible ruptured tach we did consult [facility]. Again they have a low suspicion for ruptured ectopic and would recommend follow-up with them in 48 hours for reevaluation of quant. Patient was discharged with these instructions provided her with vitamins aswell as counseling on her . She was treated for cervicitis as well as bacterial vaginosis. She was given explicit return precautions including increasing abdominal pain vaginal bleeding or discharge. I discussed with the patient at the bedside the results of any laboratory testing and imaging performed. I discussed with them that if their symptoms worsened or had any new symptoms that they should return to the emergency department. Additionally I provided my standard return precaution to return if the patient had loss of consciousness, weakness, fever, vomiting, or increasing pain. The patientwill attempt to obtain follow up for reevaluation as I recommended as well as any additional instructions discussed. ED Notes - Shweta Fernandez RN - 06/25/2017 8:51 PM EDTAgree with triage note. Patient reports having hx of ovarian cyst approx 1 month ago. Patient statesthe pain comes in waves and is on both sides of her abdomen. Patient reports bleeding ended with herperiod 5 days ago.ED Triage Notes - Deepak Elena RN - 06/25/2017 8:38 PM EDTPatient states she is 5 days past her period. Patient states she is having intermittent lower abdominal cramping for the past 2 weeks. Denies having any abnormal vaginal discharge or bleeding. Denies ur inary symptoms at this time. States she is frequently nauseated in the mornings around 3 am or around breakfast time. Patient states she is currently sexually active and does not use protection or taking control.ED Triage Notes - Yi Gardiner RN - 06/25/2017 8:31 PM EDTPt with lower abdominal cramping x 2 weeks. Pt states she has recently missed a menstrual cycle. Pt with nausea. Denies vomiting or diarrhea. Denies fevers or chills.in this encounter Plan of Treatment Pending Results Name Priority Associated Diagnoses Date/Time Chlamydia/GC/Trichomonas Routine 06/25/2017 10:43 PM EDT Amplified RNA Chlamydia/Gonorrhoeae Amplified Routine 06/25/2017 10:43 PM EDT RNA Trichomonas vaginalis Amplified Routine 06/25/2017 10:43 PM EDT RNA Urine Aerobic Culture Routine 06/25/2017 8:44 PM EDT Scheduled Tests Name Priority Associated Diagnoses Order Schedule Chlamydia/GC/Trichomonas Routine Once for 1 Occurrences Amplified RNA starting 06/25/2017 until 06/25/2017 Chlamydia/Gonorrhoeae Routine Once for 1 Occurrences Amplified RNA starting 06/25/2017 until 06/25/2017 Trichomonas vaginalis Routine Once for 1 Occurrences Amplified RNA starting 06/25/2017 until 06/25/2017 Urine Aerobic Culture Routine Once for 1 Occurrences starting 06/25/2017 until 06/25/2017 hCG, Blood, Quantitative Routine Abnormal ultrasound of Three times a Week for 10 pelvis Occurrences starting 06/26/2017 until 06/26/2018 Health Maintenance Due Date Last Done Comments TETANUS EVERY 10 YR 1997 HPV VACCINES (1 of 3 - Female 3 Dose Series) 2008 SEQUENTIAL INFLUENZA VACCINE (#1) 2017 as of this encounter Results ABORH Verification (06/26/2017 12:14 AM) Component Value Ref Range ABORh AB Positive Verification of ABORH ABO/Rh Verification Specimen Performing Laboratory Blood [facility] [address] [place] [address] Narrative Patient's ABO/Rh is verified. Wet Preparation (06/25/2017 10:43 PM) Component Value Ref Range Trich, Wet Prep No Trichomonas Seen No Trichomonas Seen Yeast, Wet Prep No Yeast Seen No Yeast Seen Yeast w/hyphae, Wet prep No Yeast with Hyphae Seen No Yeast with Hyphae Seen WBC, Wet Prep Many WBC's Seen (A) No WBC's Seen Clue Cells, Wet Prep Possible Clue Cells Seen (A) No Clue Cells Seen Specimen Performing Laboratory Swab - Cervix [facility] [address] [place] [address] US Obstetric 1st Trimester With Transvaginal, Transabdominal And Color Flow Single Fetus (06/25/201710:19 PM) Specimen Performing Laboratory [facility] Impressions Nonspecific 0.3 cm cystic lesion is visualized within the endometrium which may represent early gestational sac or free fluid/nonspecific cystic lesion.?The similar appearing lesion was visualized on prior pelvic ultrasound exam dated 04/20/2017. There is a large cystic lesion within the right ovary without convincing sonographic appearance to suggest ectopic , and there is a large amount of complex free fluid within the bilateral adnexa and the pelvis. Overall findings can be seen in the setting of recently ruptured hemorrhagic cyst in the setting of early or ruptured ectopic with stable nonspecific sub cm cystic lesion within the endometrium.?Recommend clinical correlation and close clinical follow-up with serial imaging and beta hCG. The case and the findings were discussed with David Ash NP at 11:32 p.m. EST on 06/25/2017. NICO/junior Workstation ID:? [id number] Narrative EXAMINATION: US OB 1ST TRIMESTER WITH TRANSVAGINAL TRANSABDOMINAL AND COLOR FLOW SINGLE FETUS HISTORY: Pelvic cramping.?Positive test. COMPARISON: 04/20/2017.?None from this . TECHNIQUE: Transabdominal duplex scan of the pelvic structures was performed using B-Mode/grayscale imaging, Doppler spectral analysis, and color-flow. In addition, more detailed evaluation of the endometrial stripe, gestational sac, and adnexa was provided by the transvaginal duplex scan of the pelvic structures using B-Mode/grayscale imaging, Doppler spectral analysis, and color-flow. FINDINGS: LMP:?05/28/2017. The uterus measures up to 9.1 x 4.9 x 6.4 cm.?Within the endometrium, cystic lesion is visualized measuring up to 0.3 cm which is grossly unchanged from the prior exam.?No pole is visualized.?Trace free fluid is visualized within the endometrium. The visualized portions of the cervical canal appears closed. The right ovary measures 4.1 x 2.8 x 2.7 cm.?Indeterminate cystic lesion is visualized within the right ovary without significant hypervascularity or internal echogenicity.?The right ovary demonstrates normal venous flow and arterial flow. Left ovary measures up to 2.8 x 1.8 x 1.8 cm.?Dominant follicle is visualized within the left ovary.?The left ovary demonstrates arterial and venous flow. Complex free fluid is visualized within the bilateral adnexa containing internal debris. Procedure Note Interface, Rad In Fuji Speechq - 06/25/2017 11:36 PM EDT EXAMINATION: US OB 1ST TRIMESTER WITH TRANSVAGINAL TRANSABDOMINAL AND COLOR FLOW SINGLE FETUS HISTORY: Pelvic cramping. Positive test. COMPARISON: 04/20/2017. None from this . TECHNIQUE: Transabdominal duplex scan of the pelvic structures was performed using B-Mode/grayscale imaging, Doppler spectral analysis, and color-flow. In addition, more detailed evaluation of the endometrial stripe, gestational sac, and adnexa was provided by the transvaginal duplex scan of the pelvic structures using B-Mode/grayscale imaging, Doppler spectral analysis, and color-flow. FINDINGS: LMP: 05/28/2017. The uterus measures up to 9.1 x 4.9 x 6.4 cm. Within the endometrium, cystic lesion is visualized measuring up to 0.3 cm which is grossly unchanged from the prior exam. No pole is visualized. Trace free fluid is visualized within the endometrium. The visualized portions of the cervical canal appears closed. The right ovary measures 4.1 x 2.8 x 2.7 cm. Indeterminate cystic lesion is visualized within the right ovary without significant hypervascularity or internal echogenicity. The right ovary demonstrates normal venous flow and arterial flow. Left ovary measures up to 2.8 x 1.8 x 1.8 cm. Dominant follicle is visualized within the left ovary. The left ovary demonstrates arterial and venous flow. Complex free fluid is visualized within the bilateral adnexa containing internal debris. IMPRESSION: Nonspecific 0.3 cm cystic lesion is visualized within the endometrium which may represent early gestational sac or free fluid/nonspecific cystic lesion. The similar appearing lesion was visualized on prior pelvic ultrasound exam dated 04/20/2017. There is a large cystic lesion within the right ovary without convincing sonographic appearance to suggest ectopic , and there is a large amount of complex free fluid within the bilateral adnexa and the pelvis. Overall findings can be seen in the setting of recently ruptured hemorrhagic cyst in the setting of early or ruptured ectopic with stable nonspecific sub cm cystic lesion within the endometrium. Recommend clinical correlation and close clinical follow-up with serial imaging and beta hCG. The case and the findings were discussed with David Ash NP at 11:32 p.m. EST on 06/25/2017. /junior Workstation ID: [id number] Type and Screen (06/25/2017 9:23 PM) Component Value Ref Range ABORh AB Positive Antibody Screen Negative Specimen Expires 06/28/2017 23:59 EST Specimen Performing Laboratory Blood [facility] [address] [place] [id number] [place] Top (06/25/2017 9:23 PM) Specimen Performing Laboratory Blood [facility] [address] [place] [id number] [place] Top (06/25/2017 9:23 PM) Component Value Ref Range Extra Tube Hold for add-ons.Comment: Auto resulted. Specimen Performing Laboratory Blood [facility] [address] [place] [id number] Light Blue Top (06/25/2017 9:23 PM) Component Value Ref Range Extra Tube Hold for add-ons.Comment: Auto resulted. Specimen Performing Laboratory Blood [facility] [address] [place] [address] [id number] Gold Top (06/25/2017 9:23 PM) Component Value Ref Range Extra Tube Hold for add-ons.Comment: Auto resulted. Specimen Performing Laboratory Blood [facility] [address] [place] [address] [id number] [place] Draw (06/25/2017 9:23 PM) Specimen Performing Laboratory Blood Narrative The following orders were created for panel order Fifty [place] Draw. Procedure? Abnormality? Status? ---------? ------? Gold Top[[id number]]? Final result? Light Blue Top[[id number]]? Final result? [place] Top[[id number]]? Final result? [place] Top[[id number]]? Final result? Please view results for these tests on the individual orders. CBC Auto Differential (06/25/2017 9:23 PM) Component Value Ref Range WBC 7.20 4.50 - 11.00 K/mcL RBC 3.56 (L) 4.00 - 5.20 M/mcL Hemoglobin 11.4 (L) 12.0 - 16.0 g/dL Hematocrit 33.4 (L) 36.0 - 46.0 % MCV 93.8 80.0 - 100.0 fL MCH 32.0 26.0 - 34.0 pg MCHC 34.1 31.0 - 37.0 g/dL Platelets 219 150 - 400 K/mcL RDW - CV 13.6 11.6 - 14.8 % MPV 10.2 9.0 - 15.5 fL Neutrophils 56.2 % Lymphocytes 31.9 % Monocytes 6.8 % Eosinophils 4.6 % Basophils 0.4 % IG Percent 0.10Comment: The IG parameter is the percentage % of metamyelocytes, myelocytes, and promyelocytes. Neutrophils Abs 4.04 1.70 - 7.00 K/mcL Lymphocytes Abs 2.30 0.90 - 4.00 K/mcL Monocytes Abs 0.49 0.30 - 0.90 K/mcL Eosinophils Abs 0.33 0.00 - 0.50 K/mcL Basophils Abs 0.03 0.00 - 0.30 K/mcL IG Absolute 0.01 0.00 - 0.30 K/mcL Nucleated RBC 0.0 % Nucleated RBC Abs 0.00 0.00 - 0.00 K/mcL Specimen Performing Laboratory Blood [facility] [address] [place] [address] [id number] CBC and Differential (06/25/2017 9:23 PM) Specimen Performing Laboratory Blood Narrative The following orders were created for panel order CBC and Differential. Procedure? Abnormality? Status? ---------? ------? CBC Auto Differential[[id number]]?Abnormal?Final result? Please view results for these tests on the individual orders. Basic Metabolic Panel (06/25/2017 9:23 PM) Component Value Ref Range Sodium 143 135 - 145 mmol/L Potassium 3.8 3.5 - 5.1 mmol/L Chloride 105 98 - 108 mmol/L Bicarbonate 24 21 - 32 mmol/L Anion Gap 18 10 - 20 mmol/L Glucose 92 65 - 99 mg/dL BUN 7 (L) 8 - 25 mg/dL Creatinine 0.67 0.40 - 1.10 mg/dL eGFR 128 >=60 mL/min/1.73 m2 BUN/Creatinine Ratio 10.4 10.0 - 20.0 Calcium 9.0 8.4 - 10.2 mg/dL Specimen Performing Laboratory Blood [facility] [address] [place] [address] Narrative The eGFR should be used for monitoring renal function only and not for medication dosing. hCG, Blood, QUANTitative (06/25/2017 9:23 PM) Component Value Ref Range hCG Quant 622 (H) 0 - 5 mIU/mL Specimen Performing Laboratory Blood [facility] [address] [place] [address] Narrative Males and non females:?<5 mIU/mL Females during : 3-4 weeks?9-130 mIU/mL 4-5 weeks?75-2600 mIU/mL 5-6 weeks?850-20,800 mIU/mL 6-7 weeks?4000-100,200 mIU/mL 7-12 weeks? 11,500-289,000 mIU/mL 12-16 weeks?18,300-137,000 mIU/mL 16-29 weeks?1,400-53,000 mIU/mL 29-41 weeks?940-60,000 mIU/mL Urine (06/25/2017 8:43 PM) Component Value Ref Range Beta-hCG, Ur, Qual Positive (A) Negative Specimen Performing Laboratory Urine - Urine, [facility] [address] [place], [place] [id number] Urinalysis (06/25/2017 8:43 PM) Component Value Ref Range Color, Urine Yellow Colorless, Yellow Clarity, Urine Hazy (A) Clear Specific [place] 1.028 (H) 1.005 - 1.025 pH, Urine 5.0 5.0 - 7.0 Protein, Urine 30 (A)Comment: False positive results Negative mg/dL may occur in urines with large amounts of hemoglobin, pH greater than 8.0, contrast medium, or disinfectants including ammonium compounds. Glucose, Urine Negative Negative mg/dL Ketones, Urine Negative Negative mg/dL Bilirubin, Urine Negative Negative Urobilinogen, Urine >=4.0 (A) <2.0 mg/dL Blood, Urine Negative Negative Nitrite, Urine Negative Negative Leukocyte Esterase, Urine Large (A) Negative WBCs, Urine 13 (H) 0 - 5 /hpf RBCs, Urine 5 (H) 0 - 3 /hpf Bacteria, Urine Few (A) None Seen /hpf WBC Clumps, Urine Rare (A) None Seen /hpf Squamous Epithelial 7 (H) 0 - 4 /hpf Mucus, Urine Rare None Seen, Rare /lpf Specimen Performing Laboratory Urine - Urine, [facility] [address] [place] [address] Narrative Microscopic examination is performed on all urinalysis samples and only positive findings are reported. The test for blood on the chemical analytic portion of urinalysis may also be positive due to hemoglobinuria and myoglobinuria and if red blood cells are present they are quantified by microscopic examination. in this encounter Visit Diagnoses Diagnosis Pelvic pain during - Primary Abnormal ultrasound of pelvis BV (bacterial vaginosis) Unspecified vaginitis and vulvovaginitis in this encounter Administered Medications Inactive Administered Medications - up to 3 most recent administrations Medication Order MAR Action Action Date Dose Rate Site azithromycin (ZITHROMAX) tablet Given 06/25/2017 23:44 EDT 1,000 mg 1,000 mg 1,000 mg, Oral, Once, 06/25/17 at 2315, For 1 dose, Indication: STD Prophylaxis cefTRIAXone IM (ROCEPHIN) Given 06/25/2017 23:43 EDT 250 mg Right Ventrogluteal injection 250 mg 250 mg, Intramuscular, Once, Sun06/25/17 at 2315, For 1 dose, Indication: STD Prophylaxis sodium chloride 0.9% (NS) bolus New Bag 06/25/2017 22:42 EDT 1,000 mL 1000 mL/hr 1,000 mL 1,000 mL, Intravenous, at 1,000 mL/hr, Once, Sun06/25/17 at 2155, For 1 dose in this encounter Insurance Payer Benefit Plan / Group Subscriber ID Type Phone Address [facility] MANAGED MEDICAID [facility] MEDICAID COMMUNITY PLAN [id number] as of this encounter
--- OUTSIDE RECORDS SUMMARY | 2018-09-23 14:41 | XMS RPT_ITS | Summary of Care ---
:1995 Author Organization [facility] Address [address] [place] [address] Phone Care Team Providers Name Role Phone Yanet Barnes MD Primary Care Provider Reason for Visit Reason Comments [place] [facility] [place] Encounter Details Date Type Department Care Team Description 08/30/2017 Patient Outreach [facility] [place] Follow-up ([facility] Medicine Jose M Orozco RN visit) [address] [facility] [address] [place] [address] Allergies Active Allergy Reactions Severity [...] 06/29/2017 Last Assessment & Plan: Will recheck [facility] today. Continue vitamins. Social History Tobacco Use Types Packs/Day Years Used Date Current Every Day Smoker Cigarettes 0.5 1 Smokeless Tobacco: Never Used Alcohol Use Drinks/Week oz/Week Comments Yes Socially Sex Assigned at Date Recorded Not on file as of this encounter Progress Notes [place]annon RN - 08/30/2017 3:56 PM ESTPatient was seen in the [facility] [place] 08/29/17 Date of call: 08/29/17 Discharge diagnosis: Spoke with Tasneem Follow-up appointment date/time: Has an IPV with RN on 08/31/17 at 1010 and then 09/14/[address] Karina dooley . in this encounter Plan of Treatment Upcoming Encounters Date Type Specialty Care Team Description 08/31/2017 Initial Primary Care 09/14/2017 Initial Primary Care Yanet Barnes MD [address] [place] [address] [phone] Health Maintenance Due Date Last Done Comments ANNUAL EXAM 1995 TETANUS EVERY 10 YR 1997 HPV VACCINES (1 of 3 - Female 3 Dose Series) 2008 CHLAMYDIA SCREENING 2012 SEQUENTIAL INFLUENZA VACCINE (#1) 2017 as of this encounter Insurance Payer Benefit Plan / Group Subscriber ID Type Phone Address [facility] MANAGED MEDICAID [facility] MEDICAID COMMUNITY PLAN [id number] as of this encounter
--- OUTSIDE RECORDS SUMMARY | 2018-09-23 14:41 | XMS RPT_ITS | Summary of Care ---
:1995 Author Organization [facility] Address [address] [place] [address] Phone Care Team Providers Name Role Phone Yanet Barnes MD Primary Care Provider Reason for Visit Reason Comments Follow-up Encounter Details Date Type Department Care Team Description 07/09/2017 Office Visit [facility] Family Yanet Barnes MD Incomplete miscarriage Medicine Jose M [address] [facility] (Primary Dx);Encounter [address] [facility] for tobacco use [address] [place], [place] [address] [phone] Allergies Active Allergy Reactions Severity Noted Date Comments Amoxicillin Hives 03/01/2017 Metronidazole GI Intolerance 06/29/2017 as of this encounter Medications Prescription Sig. Disp. Refills Start Date End Date Status prenat.vits,jose juan,min-iro Take 1 tablet by 30 each 0 06/26/2017 07/26/2017 Active n-folic ( mouth daily. VITAMIN) Tab nicotine (NICODERM CQ) Place 1 (one) 28 patch 0 07/09/2017 08/14/2017 Active 21 mg/24 hrIndications: patch on the Encounter [...] 06/29/2017 Last Assessment & Plan: [place] [facility] [place]. Continue vitamins. as of this encounter Social History Tobacco Use Types Packs/Day Years Used Date Current Every Day Smoker Cigarettes 0.5 Smokeless Tobacco: Never Used Alcohol Use Drinks/Week oz/Week Comments Yes Socially Sex Assigned at Date Recorded Not on file as of this encounter Last Filed Vital Signs Vital Sign Reading Time Taken Blood Pressure 120/62 07/09/2017 1:25 PM EST Pulse 87 07/09/2017 1:25 PM EST Temperature 36.3 ??C (97.3 ??F) 07/09/2017 1:25 PM EST Respiratory Rate 16 07/09/2017 1:25 PM EST Oxygen Saturation 99% 07/09/2017 1:25 PM EST Inhaled Oxygen Concentration - - Weight 62.1 kg (137 lb) 07/09/2017 1:25 PM EST Height 182.9 cm (6') 07/09/2017 1:25 PM EST Body Mass Index 18.58 07/09/2017 1:25 PM EST in this encounter Progress Notes Yanet Barnes MD - 07/09/2017 1:59 PM ESTFormatting of this note may be different from the original. Tasneem Christensen is a 21 y.o. female Assessment/Plan: Problem List Items Addressed This Visit Other Incomplete miscarriage - Primary Will recheck [facility] [place]. Continue vitamins. Encounter for tobacco use cessation counseling Will start on patch and bring back in 2 weeks. Discussed importance of selecting a quit date, identifying barriers and resources, and her boyfriend also quitting with her. Relevant Medications nicotine (NICODERM CQ) 21 mg/24 hr Return in about 1 month (around 08/08/2017) for Follow Up Preception Counseling. Tasneem Christensen is a 21 y.o. female who presents for Chief Complaint Patient presents with ??? Follow-up HPI - Incomplete : Vaginal bleeding has significantly improved. No abdominal pain, fever, chills, discharge. - Tobacco cessation: Wants to get and is interested in smoking cessation. Has only smoked for the past year. 1-2 packs a day. Barriers includes her boyfriend who smokes (but he is also interested in cessation). Patient Active Problem List Diagnosis SNOMED CT(R) ??? Incomplete miscarriage INCOMPLETE MISCARRIAGE No past surgical history on file. Social History Substance Use Topics ??? Smoking status: Current Every Day Smoker Packs/day: 0.50 Types: Cigarettes ??? Smokeless tobacco: Never Used ??? Alcohol use Yes Comment: Socially Medication Sig ??? prenat.vits,jose juan,mqn-buct-ppitr ( VITAMIN) Tab Take 1 tablet by mouth daily. Review of Systems Constitutional: Negative for chills, fatigue and fever. Gastrointestinal: Negative for abdominal pain. Genitourinary: Positive for vaginal bleeding. Negative for pelvic pain, vaginal discharge and vaginal pain. Skin: Negative for rash. Neurological: Negative for light-headedness and headaches. Psychiatric/Behavioral: Negative for self-injury, sleep disturbance and suicidal ideas. The patient is not nervous/anxious. Physical Exam: BP 120/62 Pulse 87 Temp 97.3 ??F (36.3 ??C) (Temporal) Resp 16 Ht 6' Wt 62.1 kg (137 lb) LMP 05/28/2017 SpO2 99% BMI 18.58 kg/m2 Wt Readings from Last 3 Encounters: 07/09/17 62.1 kg (137 lb) (65 %, Z= 0.38)* 07/05/17 62.4 kg (137 lb 8 oz) (65 %, Z= 0.40)* 06/29/17 63.4 kg (139 lb 12.8 oz) (69 %, Z= 0.49)* * Growth percentiles are based on CDC 2-20 Years data. BP Readings from Last 3 Encounters: 07/09/17 120/62 07/05/17 120/70 06/29/17 118/76 Physical Exam Constitutional: She appears well-developed [...] Plan Note - Yanet Barnes MD - 07/09/2017 3:29 PM EST Associated Problem(s): Encounter for tobacco use cessation counselingWill start on patch and bring back in 2 weeks. Discussed importance of selecting a quit date, identifying barriers and resources, and her boyfriend also quitting with her.Assessment & Plan Note - Yanet Barnes MD - 07/09/2017 3:29 PM EST Associated Problem(s): Incomplete miscarriageWill [place] [facility] [place]. Continue vitamins.in this encounter Plan of Treatment Upcoming Encounters Date Type Specialty Care Team Description 07/27/2017 Office Visit Primary Care Yanet Barnes MD [facility] [place] [id number] Health Maintenance Due Date Last Done Comments TETANUS EVERY 10 YR 1997 HPV VACCINES (1 of 3 - Female 3 Dose Series) 2008 SEQUENTIAL INFLUENZA VACCINE (#1) 2017 as of this encounter Visit Diagnoses Diagnosis Incomplete miscarriage - Primary Incomplete spontaneous without mention of complication Encounter for tobacco use cessation counseling in this encounter Insurance Payer Benefit Plan / Group Subscriber ID Type Phone Address [facility] MANAGED MEDICAID [facility] MEDICAID COMMUNITY PLAN [id number] Home: [address] [phone] [address] as of this encounter
--- OUTSIDE RECORDS SUMMARY | 2018-09-23 14:41 | XMS RPT_ITS | Summary of Care ---
:1995 Author Organization [facility] Address [address] [place] [address] Phone Care Team Providers Name Role Phone No, Physician Primary Care Provider Unavailable Encounter Details Date Type Department Care Team Description 07/03/2017 Hospital Encounter [place] Nabeel Tolentino [facility] Ultrasound MD Jaxon miscarriage [address] [place] [address] [phone] Allergies Active Allergy Reactions Severity Noted Date [...] Not on file as of this encounter Plan of Treatment Upcoming Encounters Date Type Specialty Care Team Description 07/05/2017 Routine Primary Care Yanet Barnes MD [address] [place] [address] [phone] 07/12/2017 Routine Primary Care Yanet Barnes MD [address] [place] [address] Health Maintenance Due Date Last Done Comments TETANUS EVERY 10 YR 1997 HPV VACCINES (1 of 3 - Female 3 Dose Series) 2008 SEQUENTIAL INFLUENZA VACCINE (#1) 2017 as of this encounter Results US Obstetric 1st Trimester With Transvaginal, Transabdominal And Color Flow Single Fetus (07/03/2017 8:04 AM) Specimen Performing Laboratory [facility] Impressions This is a of uncertain location. There is a tiny anechoic structure in the endometrium currently seen which is out of range for dates and much smaller than expected for 6 weeks gestation.?The endometrium is much less thickened than on the prior study. There is anechoic free fluid in the cul-de-sac currently which was not present before. Continued follow-up with serial beta HCGs is recommended.?A follow-up ultrasound in 3-5 days can also be considered if the patient remains clinically stable. [facility] Workstation ID:? [id number] Narrative EXAMINATION: US OB 1ST TRIMESTER WITH TRANSVAGINAL TRANSABDOMINAL AND COLOR FLOW SINGLE FETUS HISTORY: Dx: O20.0 (Threatened miscarriage).?By history, she has a stable, but not rising beta HCG level consistent with an ectopic . On today's examination, the last menstrual period was recorded as 05/21/2017.?On the prior ultrasound report, the LMP was recorded as 05/28/2017. COMPARISON: 06/25/2017. FINDINGS: TRANSABDOMINAL:?The urinary bladder is normal.?The uterus is anteverted measuring 8.2 x 4.4 x 5.1 cm.?There is free fluid in the cul-de-sac which was not present before. Neither ovary is seen with certainty. ENDOVAGINAL EXAM:?On the endovaginal portion of the examination, there is a tiny anechoic structure in the fundus of the endometrial canal measuring 0.4 x 0.4 x 0.5 cm.?If this reflects an intrauterine gestational sac, it is out of range for reported menstrual dates.?It could be a pseudo sac.?The endometrium overall is not thickened and measures 8.4 cm.?Previously, the endometrium measured 1.8 cm. No myometrial masses are seen. The right ovary currently measures 3.9 x 1.7 x 2.6 cm.?There is a regression of an anechoic cyst measuring 2.2 x 0.8 x 1.7 cm.?Previously, this measured 2.2 x 1.5 x 2.4 cm.?No peripheral vascularity associated with this cyst is seen. The left ovary measures 2.2 x 1.8 x 1.8 cm.?It looks normal.?No paraovarian masses are identified. DOPPLER EVALUATION WITH WAVEFORM AND SPECTRAL ANALYSIS:?Blood flow to both ovaries is present.?The resistance index of the right ovary is 0.66 and that of the left ovary is 0.71. Procedure Note Interface, Rad In Eve Speechq - 07/03/2017 9:27 AM EST EXAMINATION: US OB 1ST TRIMESTER WITH TRANSVAGINAL TRANSABDOMINAL AND COLOR FLOW SINGLE FETUS HISTORY: Dx: O20.0 (Threatened miscarriage). By history, she has a stable, but not rising beta HCG level consistent with an ectopic . On today's examination, the last menstrual period was recorded as 05/21/2017. On the prior ultrasound report, the LMP was recorded as 05/28/2017. COMPARISON: 06/25/2017. FINDINGS: TRANSABDOMINAL: The urinary bladder is normal. The uterus is anteverted measuring 8.2 x 4.4 x 5.1 cm. There is free fluid in the cul-de-sac which was not present before. Neither ovary is seen with certainty. ENDOVAGINAL EXAM: On the endovaginal portion of the examination, there is a tiny anechoic structure in the fundus of the endometrial canal measuring 0.4 x 0.4 x 0.5 cm. If this reflects an intrauterine gestational sac, it is out of range for reported menstrual dates. It could be a pseudo sac. The endometrium overall is not thickened and measures 8.4 cm. Previously, the endometrium measured 1.8 cm. No myometrial masses are seen. The right ovary currently measures 3.9 x 1.7 x 2.6 cm. There is a regression of an anechoic cyst measuring 2.2 x 0.8 x 1.7 cm. Previously, this measured 2.2 x 1.5 x 2.4 cm. No peripheral vascularity associated with this cyst is seen. The left ovary measures 2.2 x 1.8 x 1.8 cm. It looks normal. No paraovarian masses are identified. DOPPLER EVALUATION WITH WAVEFORM AND SPECTRAL ANALYSIS: Blood flow to both ovaries is present. The resistance index of the right ovary is 0.66 and that of the left ovary is 0.71. IMPRESSION: This is a of uncertain location. There is a tiny anechoic structure in the endometrium currently seen which is out of range for dates and much smaller than expected for 6 weeks gestation. The endometrium is much less thickened than on the prior study. There is anechoic free fluid in the cul-de-sac currently which was not present before. Continued follow-up with serial beta HCGs is recommended. A follow-up ultrasound in 3-5 days can also be considered if the patient remains clinically stable. MPB/cdr Workstation ID: [id number] in this encounter Visit Diagnoses Diagnosis Threatened miscarriage Threatened , unspecified as to episode of care in this encounter Insurance Payer Benefit Plan / Group Subscriber ID Type Phone Address [facility] MANAGED MEDICAID [employer] MEDICAID COMMUNITY PLAN [id number] as of this encounter
--- OUTSIDE RECORDS SUMMARY | 2018-09-23 14:41 | XMS RPT_ITS | Summary of Care ---
:1995 Author Organization [facility] Address [address] [id number] Phone Care Team Providers Name Role Phone Yanet Barnes MD Primary Care Provider Reason for Visit Reason Comments Initial Visit nurse visit Encounter Details Date Type Department Care Team Description 08/31/2017 Initial [facility] Family Zee Ferraro RN [place]: [id number] Medicine Jose M [address] [place] [address] [address] [place] [address] [place] [id number] Allergies Active Allergy Reactions Severity Noted Date [...] 06/29/2017 Last Assessment & Plan: [place] [facility] [place]. Continue vitamins. Currently Estimated Date of Delivery Comments Yes 05/05/2018 Based on last menstrual period of 07/29/2017 (Exact Date) Social History Tobacco Use Types Packs/Day Years Used Date Current Every Day Smoker Cigarettes 0.5 1 Smokeless Tobacco: Never Used Tobacco Cessation: Ready to Quit: Yes; Counseling Given: Yes Comments: '' I'm cutting down'' started smoking one year ago Alcohol Use Drinks/Week oz/Week Comments No denies this Currently Estimated Date of Delivery Comments Yes 05/05/2018 Based on last menstrual period of 07/29/2017 (Exact Date) Sex Assigned at Date Recorded Not on file as of this encounter Last Filed Vital Signs Vital Sign Reading Time Taken Blood Pressure 100/60 08/31/2017 10:14 AM EST Pulse 88 08/31/2017 10:14 AM EST Temperature 36.7 ??C (98.1 ??F) 08/31/2017 10:14 AM EST Respiratory Rate 18 08/31/2017 10:14 AM EST Oxygen Saturation - - Inhaled Oxygen Concentration - - Weight 63 kg (139 lb) 08/31/2017 10:14 AM EST Height 185 cm (6' 0.83) 08/31/2017 10:14 AM EST Body Mass Index 18.42 08/31/2017 10:14 AM EST in this encounter Progress Notes Zee Ferraro RN - 08/31/2017 10:43 AM ESTPt here for initial nurse visit with marlena, pt states '' I went to the ER to see if I was . '' pt c/o breast tenderness , mild nausea in am . test positive in the ED 08/29/17. Pt quiet , aware of Residency program and delivering baby at [facility] . Discuss importance of quitting smoking , pt states , '' I am cutting down '' . Pt taking vitamins prescribed by ED , tolerating food and fluid well after initial nausea in the mornings, Journal reviewed , denies questions , pt aware of lab orders and next appointment.in this encounter Plan of Treatment Upcoming Encounters Date Type Specialty Care Team Description 09/14/2017 Initial Primary Care Yanet Barnes MD [address] [place] [address] [phone] Pending Results Name Priority Associated Diagnoses Date/Time Obstetric Panel Routine 8 weeks gestation of 08/31/2017 10:48 AM EST HIV Antibody (HIV1/HIV2) Routine 8 weeks gestation of 08/31/2017 10:48 AM EST Varicella zoster Antibody, Routine 8 weeks gestation of 08/31/2017 10:48 AM EST IgG Syphilis Antibody Routine 8 weeks gestation of 08/31/2017 10:48 AM EST Scheduled Tests Name Priority Associated Diagnoses Order Schedule Obstetric Panel Routine 8 weeks gestation of 1 Occurrences starting 08/31/2017 until 08/31/2018 HIV Antibody (HIV1/HIV2) Routine 8 weeks gestation of 1 Occurrences starting 08/31/2017 until 08/31/2018 Varicella zoster Routine 8 weeks gestation of 1 Occurrences starting Antibody, IgG 08/31/2017 until 08/31/2018 Type and Screen Routine 8 weeks gestation of 1 Occurrences starting 08/31/2017 until 08/31/2018 Syphilis Antibody Routine 8 weeks gestation of 1 Occurrences starting 08/31/2017 until 08/31/2018 Health Maintenance Due Date Last Done Comments ANNUAL EXAM 1997 TETANUS EVERY 10 YR 1997 HPV VACCINES (1 of 3 - Female 3 Dose Series) 2008 CHLAMYDIA SCREENING 2012 SEQUENTIAL INFLUENZA VACCINE (#1) 2017 as of this encounter Visit Diagnoses Diagnosis 8 weeks gestation of - Primary Insurance Payer Benefit Plan / Group Subscriber ID Type Phone Address [facility] MANAGED MEDICAID [employer] MEDICAID COMMUNITY PLAN [id number] as of this encounter
--- OUTSIDE RECORDS SUMMARY | 2018-09-23 14:41 | XMS RPT_ITS | Summary of Care ---
:1995 Author Organization [facility] Address [address] [place] [address] Phone Care Team Providers Name Role Phone Yanet Barnes MD Primary Care Provider Reason for Visit Reason Comments Follow-up [facility] ED visit Encounter Details Date Type Department Care Team Description 08/01/2017 Patient Outreach [facility] Family [facility] Hannon Follow-up ([facility] ED Medicine Jose M Orozco RN visit) [address] [place] [address] Allergies Active Allergy Reactions Severity [...] 06/29/2017 Last Assessment & Plan: Will recheck [facility] today. Continue vitamins. as of this encounter Social History Tobacco Use Types Packs/Day Years Used Date Current Every Day Smoker Cigarettes 0.5 1 Smokeless Tobacco: Never Used Alcohol Use Drinks/Week oz/Week Comments Yes Socially Sex Assigned at Date Recorded Not on file as of this encounter Progress Notes Bell Hannon RN - 08/01/2017 1:54 PM Kendy went to the [facility] ED for tachycardia and dizziness on 07/30/17. She left AMA before being treated. Attempted to call to follow-up. Numbers on file are invalid.in this encounter Plan of Treatment Upcoming Encounters Date Type Specialty Care Team Description 08/03/2017 Office Visit Primary Care Niles Vásquez, [address] [place], [place] [phone] Health Maintenance Due Date Last Done Comments TETANUS EVERY 10 YR 1997 HPV VACCINES (1 of 3 - Female 3 Dose Series) 2008 SEQUENTIAL INFLUENZA VACCINE (#1) 2017 as of this encounter Insurance Payer Benefit Plan / Group Subscriber ID Type Phone Address [facility] MANAGED MEDICAID [facility] MEDICAID COMMUNITY PLAN [id number] as of this encounter
--- OUTSIDE RECORDS SUMMARY | 2018-09-23 14:41 | XMS RPT_ITS | Summary of Care ---
:1995 Author Organization [facility] Address [address] [place] [address] Phone Care Team Providers Name Role Phone Unavailable Primary Care Provider Unavailable Reason for Visit Reason Comments Chest Pain Dizziness Tachycardia Encounter Details Date Type Department Care Team Description 04/25/2017 Emergency [place] Amrita Moreno SVT (supraventricular Hospital Emergency [place], DO tachycardia) ([facility]) Department [address] [facility] (Primary Dx) [address] [address] [facility] [phone] [place] [address] [phone] Allergies Active Allergy Reactions Severity Noted Date Comments Amoxicillin Hives 03/01/2017 as of this encounter Social History Tobacco Use Types Packs/Day Years Used Date Current Every Day Smoker Cigarettes 1 Smokeless Tobacco: Never Used Alcohol Use Drinks/Week oz/Week Comments Yes Socially Sex Assigned at Date Recorded Not on file as of this encounter Last Filed Vital Signs Vital Sign Reading Time Taken Blood Pressure 95/48 04/25/2017 10:00 PM EDT Pulse 97 04/25/2017 10:00 PM EDT Temperature 36.9 ??C (98.5 ??F) 04/25/2017 7:05 PM EDT Respiratory Rate 23 04/25/2017 10:00 PM EDT Oxygen Saturation 97% 04/25/2017 10:00 PM EDT Inhaled Oxygen Concentration - - Weight 61.7 kg (136 lb) 04/25/2017 7:05 PM EDT Height 182.9 cm (6') 04/25/2017 7:05 PM EDT Body Mass Index 18.44 04/25/2017 7:05 PM EDT in this encounter Discharge Instructions Amrita Henson DO - 04/25/2017Formatting of this note may be different from the original. [facility]: Transition of Care Clinic Referral You have been referred to [facility] Transition of Care Clinic. The purpose of this referral is for you to follow up with a provider regarding your Emergency Department visit today. If you are not feeling better or you were seen for a chronic condition that needs monitoring, the clinic will work with you to manage your health needs. The clinic may also be able to assist you with finding primary care or other outpatient services. Before calling for an appointment, please be aware of the following: ?? You may utilize the clinic up to 30 days from your date of discharge. ?? The clinic providers will see you regardless of your insurance status. ?? The clinic DOES NOT manage Chronic Pain, Behavioral Health medications, Pediatric or Obstetrics/Gynecology patients. The Transition of Care Clinic is open Sunday to Sunday 8am to 4pm. They also offer limited evening appointments. To schedule an appointment or if you have additional questions, please contact the clinic at [facility] [place]: Transition of Care Clinic [facility] (Follow signs to [facility]) [address] [place] [address] [place] [address] Thank you for allowing us to be involved in your care today. Follow all instructions provided and as discussed today. If any medication was prescribed, please take as instructed. Follow up closely as discussed. Please follow up with your family doctor or the clinic above-- as well as with Cardiology. If you do not have a family doctor, you may find one through the [facility] Physician Referral Service by calling [phone] ([phone]) or by visiting [email or web address] Return to the Emergency Department for any worsening symptoms or other concerns. The physician and staff of the Emergency Department would like to thank you for choosing our facility for your health care needs. Our goal is to provide exceptional service. We are here 24 hours a day, 7 days a week, and are always here for you. Tasneem, Thank You for choosing [facility]. Dr. Amrita Henson Supraventricular Tachycardia: Care Instructions Your Care Instructions Having supraventricular tachycardia (SVT) means that from time to time your heart beats abnormally fast. This fast rhythm is caused by changes in the electrical system of your heart. You may feel a fluttering in your chest (palpitations) and have a fast pulse. When your heart is beating fast, you may f eel anxious and lightheaded, be short of breath, and feel discomfort in the chest. Your doctor may prescribe medicines to help slow down your heartbeat. Your doctor may also suggest you try vagal maneuvers when having an episode of SVT. These are things, like bearing down, that mighthelp slow your heart rate. Bearing down means that you try to breathe out with your stomach muscles but you don't let air out of your nose or mouth. Your doctor can show you how to do vagal maneuvers. He or she may suggest you lie down on your back to do them. In some cases, either cardioversion treatment or a procedure called catheter ablation is done to correct SVT. Your doctor may ask you to wear a small electronic device for 1 or 2 days to monitor your heart. It is called a Holter monitor. Follow-up care is a riddle part of your treatment and safety. Be sure to make and go to all appointments, and call your doctor if you are having problems. It's also a good idea to know your test results and keep a list of the medicines you take. How can you care for yourself at home? ?? Take your medicines exactly as prescribed. Call your doctor if you think you are having a problemwith your medicine. You will get more details on the specific medicines your doctor prescribes. ?? If your doctor showed you how to do vagal maneuvers, try them when you have an episode. These maneuvers include bearing down or putting an ice-cold, wet towel on your face. ?? Monitor your condition by keeping a diary of your SVT episodes. Bring this to your doctor appointments. ?? Write down how fast or slow your heart was beating. To count your heart rate: 1. Gently place 2 fingers of your hand on the inside of your other wrist, below your thumb. 2. Count the beats for 30 seconds. 3. Then, double the result to get the number of beats per minute. ?? Write down if your heart rhythm was regular or irregular. ?? Write down the symptoms you had. ?? Write down the time of day your symptoms occurred. ?? Write down how long your symptoms lasted. ?? Write down what you were doing when your symptoms started. ?? Write down what may have helped your symptoms go away. ?? If they trigger episodes, limit or avoid alcohol or drinks with caffeine. ?? Do not use [id number] decongestants, herbal remedies, diet pills, or pep pills, which often contain stimulants. ?? Do not use illegal drugs, such as cocaine, ecstasy, or methamphetamine, which can speed up your heart's rhythm. ?? Do not smoke. Smoking can make this condition worse. If you need help quitting, talk to your doctor about stop-smoking programs and medicines. These can increase your chances of quitting for good. ?? Be alert for new or worsening symptoms, such as shortness of breath, pounding of your heart, or unusual tiredness. If new symptoms develop or your symptoms become worse, call your doctor. When should you call for help? Call 911 anytime you think you may need emergency care. For example, call if: ?? You passed out (lost consciousness). ?? You have symptoms of a heart attack. These may include: ?? Chest pain or pressure, or a strange feeling in the chest. ?? Sweating. ?? Shortness of breath. ?? Nausea or vomiting. ?? Pain, pressure, or a strange feeling in the back, neck, jaw, or upper belly or in one or both shoulders or arms. ?? Lightheadedness or a sudden weakness. ?? A fast or irregular heartbeat. After you call 911, the photocopying machine operator may tell you to chew 1 adult-strength or 2 to 4 low-dose aspirin. Wait for an ambulance. Do not try to drive yourself. Call your doctor now or seek immediate medical care if: ?? You have fluttering in your chest (palpitations) that does not go away quickly. ?? You have frequent palpitations. Watch closely for changes in your health, and be sure to contact your doctor if you have any problems. Where can you learn more? Log into your personal health record on https://[employer]cr[employer]ooga and enter G244 in the Education box to learn more about Supraventricular Tachycardia: Care Instructions. Current as of: December 21, 2015 Content Version: 11.2 ?? 1844-9810 [employer]. Care instructions adapted under license by your healthcare professional. If you have questions about a medical condition or this instruction, always ask your healthcare professional. [employer] disclaims any warranty or liability for your use of this information. in this encounter Plan of Treatment Health Maintenance Due Date Last Done Comments TETANUS EVERY 10 YR 1997 HPV VACCINES (1 of 3 - Female 3 Dose Series) 2008 SEQUENTIAL INFLUENZA VACCINE (#1) 2017 as of this encounter Results EKG 12-lead (04/25/2017 10:31 PM) Specimen Performing Laboratory MUSE Narrative Amrita Henson, DO? 04/25/2017 10:31 PM EKG 12-lead Date/Time: 04/25/2017 7:44 PM Performed by: AMRITA HENSON Authorized by: AMRITA HENSON Interpreted by ED attending physician Rhythm: sinus rhythm BPM: 109 Ectopy comments: none Conduction: conduction normal ST Segments: ST segments normal QRS axis: right T Waves: T waves normal normal KS interval normal QRS interval hCG, Blood, QUANTitative (04/25/2017 7:22 PM) Component Value Ref Range hCG Quant <1 0 - 5 mIU/mL Specimen Performing Laboratory Blood [facility] [address] [place] [address] Narrative Males and non females:?<5 mIU/mL Females during : 3-4 weeks?9-130 mIU/mL 4-5 weeks?75-2600 mIU/mL 5-6 weeks?850-20,800 mIU/mL 6-7 weeks?4000-100,200 mIU/mL 7-12 weeks? 11,500-289,000 mIU/mL 12-16 weeks?18,300-137,000 mIU/mL 16-29 weeks?1,400-53,000 mIU/mL 29-41 weeks?940-60,000 mIU/mL CBC Auto Differential (04/25/2017 7:22 PM) Component Value Ref Range WBC 14.97 (H) 4.50 - 11.00 K/mcL RBC 4.08 4.00 - 5.20 M/mcL Hemoglobin 12.8 12.0 - 16.0 g/dL Hematocrit 36.9 36.0 - 46.0 % MCV 90.4 80.0 - 100.0 fL MCH 31.4 26.0 - 34.0 pg MCHC 34.7 31.0 - 37.0 g/dL Platelets 185 150 - 400 K/mcL RDW - CV 13.3 11.6 - 14.8 % MPV 10.9 9.0 - 15.5 fL Neutrophils 83.8 % Lymphocytes 9.6 % Monocytes 5.6 % Eosinophils 0.2 % Basophils 0.3 % IG Percent 0.50Comment: The IG parameter is the percentage % of metamyelocytes, myelocytes, and promyelocytes. Neutrophils Abs 12.54 (H) 1.70 - 7.00 K/mcL Lymphocytes Abs 1.43 0.90 - 4.00 K/mcL Monocytes Abs 0.84 0.30 - 0.90 K/mcL Eosinophils Abs 0.03 0.00 - 0.50 K/mcL Basophils Abs 0.05 0.00 - 0.30 K/mcL IG Absolute 0.08 0.00 - 0.30 K/mcL Nucleated RBC 0.0 % Nucleated RBC Abs 0.00 0.00 - 0.00 K/mcL Specimen Performing Laboratory Blood [facility] [address] [place] [id number] Magnesium Level (04/25/2017 7:22 PM) Component Value Ref Range Magnesium 1.8 1.6 - 2.4 mg/dL Specimen Performing Laboratory Blood [facility] [address] [place] [address] CBC w/ Diff (04/25/2017 7:22 PM) Specimen Performing Laboratory Blood Narrative The following orders were created for panel order CBC w/ Diff. Procedure? Abnormality? Status? ---------? ------? CBC Auto Differential[[id number]]?Abnormal?Final result? Please view results for these tests on the individual orders. BMP (04/25/2017 7:22 PM) Component Value Ref Range Sodium 138 135 - 145 mmol/L Potassium 4.0 3.5 - 5.1 mmol/L Chloride 100 98 - 108 mmol/L Bicarbonate 22 21 - 32 mmol/L Anion Gap 20 10 - 20 mmol/L Glucose 105 (H) 65 - 99 mg/dL BUN 16 8 - 25 mg/dL Creatinine 0.70 0.40 - 1.10 mg/dL eGFR 126 >=60 mL/min/1.73 m2 BUN/Creatinine Ratio 22.9 (H) 10.0 - 20.0 Calcium 9.0 8.4 - 10.2 mg/dL Specimen Performing Laboratory Blood [facility] [address] [place] [address] Narrative The eGFR should be used for monitoring renal function only and not for medication dosing. TSH with Reflex Free T4 (04/25/2017 7:22 PM) Component Value Ref Range TSH 2.00 0.32 - 5.00 uIU/mL Specimen Performing Laboratory Blood [facility] [address] [place] [address] in this encounter Visit Diagnoses Diagnosis SVT (supraventricular tachycardia) (HCC) - Primary Other specified cardiac dysrhythmias in this encounter Insurance Payer Benefit Plan / Group Subscriber ID Type Phone Address [employer] MANAGED MEDICAID [employer] MEDICAID COMMUNITY PLAN [id number] as of this encounter
--- OUTSIDE RECORDS SUMMARY | 2018-09-23 14:42 | XMS RPT_ITS | Summary of Care ---
:1995 Author Organization [facility] Address [address] [phone] Phone Care Team Providers Name Role Phone Unavailable Primary Care Provider Unavailable Reason for Visit Reason Comments Vaginal Bleeding Encounter Details Date Type Department Care Team Description 04/20/2017 Emergency [place] [facility] Moisés Strong, Cyst of left ovary Hospital Emergency DO (Primary Dx);Abnormal Department [address] [facility] [address] [facility] [address] ultrasound;[address]ag[address] [place] bleeding;[place] [address] [facility] [phone] [place] [address] [phone] Allergies Active Allergy Reactions Severity Noted Date Comments Amoxicillin Hives 03/01/2017 as of this encounter Medications Prescription Sig. Disp. Refills Start Date End Date Status metroNIDAZOLE (FLAGYL) Take 1 (one) 14 tablet 0 04/16/2017 04/23/2017 Active 500 MG tablet tablet (500 mg total) by mouth 2 (two) times a day with meals for 7 days. nitrofurantoin, Take 1 (one) 14 capsule 0 04/16/2017 04/23/2017 Active macrocrystal-monohydra capsule (100 mg te, (MACROBID) 100 MG total) by mouth capsule 2 (two) times a day for 7 days. as of this encounter Social History Tobacco Use Types Packs/Day Years Used Date Current Every Day Smoker Cigarettes 1 Smokeless Tobacco: Never Used Alcohol Use Drinks/Week oz/Week Comments Yes Socially Sex Assigned at Date Recorded Not on file as of this encounter Last Filed Vital Signs Vital Sign Reading Time Taken Blood Pressure 122/65 04/20/2017 3:45 AM EDT Pulse 89 04/20/2017 3:45 AM EDT Temperature 36.4 ??C (97.5 ??F) 04/20/2017 12:32 AM EDT Respiratory Rate 16 04/20/2017 3:45 AM EDT Oxygen Saturation 100% 04/20/2017 3:45 AM EDT Inhaled Oxygen Concentration - - Weight 61.7 kg (136 lb) 04/20/2017 12:32 AM EDT Height 182.9 cm (6') 04/20/2017 12:32 AM EDT Body Mass Index 18.44 04/20/2017 12:32 AM EDT in this encounter Discharge Instructions Moiéss Strong DO - 04/20/2017Thank you for choosing to be seen in our Emergency Department. It has been our pleasure to take careof you and hope you were completely satisfied. 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 You may be receiving a survey about your visit with us. It is scored on a 1-5 scale and anything other than a 5 is considered a failing score. We do our very best to provide service which receives scores of all 5's. It would be appreciated if you could send the survey back reflecting the staff's strong efforts to make sure you are safe and treated like we would treat our loved ones. Thank you again for choosing [facility]. Dr. Strong and your [facility] ER Staff Urinary Tract Infection in Women: Care Instructions Your Care Instructions A urinary tract infection, or UTI, is a general term for an infection anywhere between the kidneys and the urethra (where urine comes out). Most UTIs are bladder infections. They often cause pain or burning when you urinate. UTIs are caused by bacteria and can be cured with antibiotics. Be sure to complete your treatment sothat the infection goes away. Follow-up care is a riddle part [...] take the full course of antibiotics. ?? Drink extra water and other fluids for the next day or two. This may help wash out the bacteria that are causing the infection. (If you have kidney, heart, or liver disease and have to limit fluids,talk with your doctor before you increase your fluid intake.) ?? Avoid drinks that are carbonated or have caffeine. They can irritate the bladder. ?? Urinate often. Try to empty your bladder each time. ?? To relieve pain, take a hot bath or lay a heating pad set on low over your lower belly or genitalarea. Never go to sleep with a heating pad in place. To prevent UTIs ?? Drink plenty of water each day. This helps you urinate often, which clears bacteria from your system. (If you have kidney, heart, or liver disease and have to limit fluids, talk with your doctor before you increase your fluid intake.) ?? Urinate when you need to. ?? Urinate right after you have sex. ?? Change sanitary pads often. ?? Avoid douches, bubble baths, feminine hygiene sprays, and other feminine hygiene products that have deodorants. ?? After going to the bathroom, wipe from front to back. When should you call for help? Call your doctor now or seek immediate medical care if: ?? Symptoms such as fever, chills, nausea, or vomiting get worse or appear for the first time. ?? You have new pain in your back just below your rib cage. This is called flank pain. ?? There is new blood or pus in your urine. ?? You have any problems with your antibiotic medicine. Watch closely for changes in your health, and be sure to contact your doctor if: ?? You are not getting better after taking an antibiotic for 2 days. ?? Your symptoms go away but then come back. Where can you learn more? Log into your personal health record on [email or web address].[email or web address] Intelligence and enter K848 in the Education box to learn more about Urinary Tract Infection in Women: Care Instructions. Current as of: July 24, 2016 Content Version: 11.2 ?? 6078-9345 [employer]. Care instructions adapted under license by your healthcare professional. If you have questions about a medical condition or this instruction, always ask your healthcare professional. [employer] disclaims any warranty or liability for your use of this information. Abnormal Uterine Bleeding: Care Instructions Your Care Instructions Abnormal uterine bleeding (AUB) is irregular bleeding from the uterus that is longer or heavier thanusual or does not occur at your regular time. Sometimes it is caused by changes in hormone levels. It can also be caused by growths in the uterus, such as fibroids or polyps. Sometimes a cause cannot be found. You may have heavy bleeding when you are not expecting your period. Your doctor may suggest a test, if you think you are . Follow-up care is a riddle part of your treatment and safety. Be sure to make and go to all appointments, and call your doctor if you are having problems. It's also a good idea to know your test results and keep a list of the medicines you take. How can you care for yourself at home? ?? Be safe with medicines. Take pain medicines exactly as directed. ?? If the doctor gave you a prescription medicine for pain, take it as prescribed. ?? If you are not taking a prescription pain medicine, ask your doctor if you can take an jwvf-kri-nhznkry medicine. ?? You may be low in iron because of blood loss. Eat a balanced diet that is high in iron and vitamin C. Foods rich in iron include red meat, shellfish, eggs, beans, and leafy green vegetables. Talk toyour doctor about whether you need to take iron pills or a multivitamin. When should you call for help? Call 911 anytime you think you may need emergency care. For example, call if: ?? You passed out (lost consciousness). Call your doctor now or seek immediate medical care if: ?? You have sudden, severe pain in your belly or pelvis. ?? You have severe vaginal bleeding. You are soaking through your usual pads or tampons every hour for 2 or more hours. ?? You feel dizzy or lightheaded, or you feel like you may faint. Watch closely for changes in your health, and be sure to contact your doctor if: ?? You have new belly or pelvic pain. ?? You have a fever. ?? Your bleeding gets worse or lasts longer than 1 week. ?? You think you may be . Where can you learn more? Log into your personal health record on https://Zoomdata.Coupad and enter I327 in the Education box to learn more about Abnormal Uterine Bleeding: Care Instructions. Current as of: June 08, 2016 Content Version: 11.2 ?? [employer]. Care instructions adapted under license by your healthcare professional. If you have questions about a medical condition or this instruction, always ask your healthcare professional. [employer] disclaims any warranty or liability for your use of this information. Functional Ovarian Cyst: Care Instructions Your Care Instructions A functional ovarian cyst is a sac that forms on the surface of a woman's ovary during ovulation. The sac holds a maturing egg. Usually the sac goes away after the egg is released. But if the egg is not released, or if the sac closes up after the egg is released, the sac can swell up with fluid and form a cyst. Functional ovarian cysts are different than ovarian growths caused by other problems, such as cancer. Most functional ovarian cysts cause no symptoms and go away on their own. Some cause mild pain. Others can cause severe pain when they rupture or bleed. Follow-up care is a riddle part of your treatment and safety. Be sure to make and go to all appointments, and call your doctor if you are having problems. It's also a good idea to know your test results and keep a list of the medicines you take. How can you care for yourself at home? ?? Use heat, such as a hot water bottle, a heating pad set on low, or a warm bath, to relax tense muscles and relieve cramping. ?? Take pain medicines exactly as directed. ?? If the doctor gave you a prescription medicine for pain, take it as prescribed. ?? If you are not taking a prescription pain medicine, ask your doctor if you can take an gtgf-xso-jckstfl medicine. ?? Avoid constipation. Make sure you drink enough fluids and include fruits, vegetables, and fiber in your diet each day. Constipation does not cause ovarian cysts, but it may make your pelvic pain worse. When should you call for help? Call 911 anytime you think you may need emergency care. For example, call if: ?? You passed out (lost consciousness). ?? You have sudden, severe pain in your belly or your pelvis. Call your doctor now or seek immediate medical care if: ?? You have new belly or pelvic pain, or your pain gets worse. ?? You have severe vaginal bleeding. This means that you are soaking through your usual pads or tampons each hour for 2 or more hours. ?? You are dizzy or lightheaded, or you feel like you may faint. ?? You have pain or bleeding during or after sex. Watch closely for changes in your health, and be sure to contact your doctor if: ?? Your pain keeps you from doing the things that you enjoy. ?? You do not get better as expected. Where can you learn more? Log into your personal health record on https://Oceans [email or web address] and enter I547 in the Education box to learn more about Functional Ovarian Cyst: Care Instructions. Current as of: June 08, 2016 Content Version: 11.2 ?? [id number] [employer]. Care instructions adapted under license by your healthcare professional. If you have questions about a medical condition or this instruction, always ask your healthcare professional. [employer] disclaims any warranty or liability for your use of this information. Please come back in 2 days for repeat beta hCG quantitative testing as well as possible repeat pelvic ultrasound.in this encounter Plan of Treatment Pending Results Name Priority Associated Diagnoses Date/Time Urine Aerobic Culture Routine 04/20/2017 1:00 AM EDT Scheduled Tests Name Priority Associated Diagnoses Order Schedule Urine Aerobic Culture Routine Once for 1 Occurrences starting 04/20/2017 until 04/20/2017 Health Maintenance Due Date Last Done Comments TETANUS EVERY 10 YR 1997 HPV VACCINES (1 of 3 - Female 3 Dose Series) 2008 SEQUENTIAL INFLUENZA VACCINE (#1) 2017 as of this encounter Results US Pelvic Transabdominal And Transvaginal With Color Flow (04/20/2017 2:14 AM) Specimen Performing Laboratory [facility] Impressions 1. Subcentimeter echo lucency within the superior aspect of the endometrial stripe possibly related to early gestational sac. 2. Moderate volume of free pelvic fluid persists. 3. Right ovary appears unremarkable.?Negative for torsion. 4. Complex thick-walled cystic lesion within the left ovary is identified.?This may represent a hemorrhagic versus corpus luteum-type cyst.?Negative for left ovarian torsion. [facility]/[employer] Workstation ID:? [id number] Narrative EXAMINATION: PELVIC ULTRASOUND 04/20/2017 HISTORY: ORDERING SYSTEM PROVIDED HISTORY:?left sided pelvic pain with vaginal bleeding, TECHNOLOGIST PROVIDED HISTORY: Reason for exam: left sided pelvic pain with vaginal bleeding Illness/Other Cancer History: Surgery, RadiationHistory: Encounter Type: Unknown Additional signs and symptoms: ORDERING SYSTEM PROVIDED DIAGNOSIS CODES: COMPARISON: Pelvic ultrasound 04/15/2017. TECHNIQUE: Multiple sagittal and transverse images of the pelvis were obtained utilizing both a transabdominal and transvaginal approach.?Huertas-scale, color and spectral wave Doppler analysis was utilized. FINDINGS: On the transabdominal portion of the exam the urinary bladder is partially distended.?The anteverted uterus measures 8.5 x 3.7 x 5.5 cm.?No discrete myometrial mass is evident.?Endometrial stripe is homogeneous with AP thickness of 9 mm.?Right ovary measures 3.6 x 1.9 x 2.9 cm.?Arterial and venous waveforms are identified within the parenchyma when interrogated with Doppler.?The resistive index measures 0.40.?The left ovary measures 3.2 x 1.9 x 2.4 cm.?Arterial and venous waveforms are identified within the parenchyma when interrogated with Doppler.?The resistive index measures 0.44. On the transvaginal study there is a moderate volume of pelvic ascites.?The fluid appears anechoic.?Endometrial stripe has an AP thickness of 10 mm.?No discrete myometrial mass is noted.?Mildly prominent intrapelvic varices about the lower uterine segment are suspected. A tiny echo lucency within the posterior layer of the endometrial stripe within the upper uterine segment is identified measuring 3 x 1 x 3 mm.?Cervix appears unremarkable. Transvaginally the right ovary is remeasured at 3.0 x 2.9 x 2.7 cm.?Small follicles are present within the right ovary. The left ovary transvaginally is remeasured at 3.4 x 3.0 x 3.1 cm.?A partially collapsed-appearing complex thick-walled cystic lesion is present.?This is surrounded by mild hyperemia.?This measures 2.4 cm in transverse dimension. Procedure Note Interface, Rad In [employer] - 04/20/2017 3:22 AM EDT EXAMINATION: PELVIC ULTRASOUND 04/20/2017 HISTORY: ORDERING SYSTEM PROVIDED HISTORY: left sided pelvic pain with vaginal bleeding, TECHNOLOGIST PROVIDED HISTORY: Reason for exam: left sided pelvic pain with vaginal bleeding Illness/Other Cancer History: Surgery, RadiationHistory: Encounter Type: Unknown Additional signs and symptoms: ORDERING SYSTEM PROVIDED DIAGNOSIS CODES: COMPARISON: Pelvic ultrasound 04/15/2017. TECHNIQUE: Multiple sagittal and transverse images of the pelvis were obtained utilizing both a transabdominal and transvaginal approach. Huertas-scale, color and spectral wave Doppler analysis was utilized. FINDINGS: On the transabdominal portion of the exam the urinary bladder is partially distended. The anteverted uterus measures 8.5 x 3.7 x 5.5 cm. No discrete myometrial mass is evident. Endometrial stripe is homogeneous with AP thickness of 9 mm. Right ovary measures 3.6 x 1.9 x 2.9 cm. Arterial and venous waveforms are identified within the parenchyma when interrogated with Doppler. The resistive index measures 0.40. The left ovary measures 3.2 x 1.9 x 2.4 cm. Arterial and venous waveforms are identified within the parenchyma when interrogated with Doppler. The resistive index measures 0.44. On the transvaginal study there is a moderate volume of pelvic ascites. The fluid appears anechoic. Endometrial stripe has an AP thickness of 10 mm. No discrete myometrial mass is noted. Mildly prominent intrapelvic varices about the lower uterine segment are suspected. A tiny echo lucency within the posterior layer of the endometrial stripe within the upper uterine segment is identified measuring 3 x 1 x 3 mm. Cervix appears unremarkable. Transvaginally the right ovary is remeasured at 3.0 x 2.9 x 2.7 cm. Small follicles are present within the right ovary. The left ovary transvaginally is remeasured at 3.4 x 3.0 x 3.1 cm. A partially collapsed-appearing complex thick-walled cystic lesion is present. This is surrounded by mild hyperemia. This measures 2.4 cm in transverse dimension. IMPRESSION: 1. Subcentimeter echo lucency within the superior aspect of the endometrial stripe possibly related to early gestational sac. 2. Moderate volume of free pelvic fluid persists. 3. Right ovary appears unremarkable. Negative for torsion. 4. Complex thick-walled cystic lesion within the left ovary is identified. This may represent a hemorrhagic versus corpus luteum-type cyst. Negative for left ovarian torsion. [employer]uck Workstation ID: [id number] hCG, Blood, Quantitative (04/20/2017 1:25 AM) Component Value Ref Range hCG Quant <1 0 - 5 mIU/mL Specimen Performing Laboratory Blood [facility] [address] [place] [address] Narrative Males and non females:?<5 mIU/mL Females during : 3-4 weeks?9-130 mIU/mL 4-5 weeks?75-2600 mIU/mL 5-6 weeks?850-20,800 mIU/mL 6-7 weeks?4000-100,200 mIU/mL 7-12 weeks? 11,500-289,000 mIU/mL 12-16 weeks?18,300-137,000 mIU/mL 16-29 weeks?1,400-53,000 mIU/mL 29-41 weeks?940-60,000 mIU/mL CBC Auto Differential (04/20/2017 1:25 AM) Component Value Ref Range WBC 7.94 4.50 - 11.00 K/mcL RBC 3.98 (L) 4.00 - 5.20 M/mcL Hemoglobin 12.4 12.0 - 16.0 g/dL Hematocrit 37.4 36.0 - 46.0 % MCV 94.0 80.0 - 100.0 fL MCH 31.2 26.0 - 34.0 pg MCHC 33.2 31.0 - 37.0 g/dL Platelets 218 150 - 400 K/mcL RDW - CV 13.9 11.6 - 14.8 % MPV 10.5 9.0 - 15.5 fL Neutrophils 64.5 % Lymphocytes 25.6 % Monocytes 5.2 % Eosinophils 4.0 % Basophils 0.4 % IG Percent 0.30Comment: The IG parameter is the percentage % of metamyelocytes, myelocytes, and promyelocytes. Neutrophils Abs 5.13 1.70 - 7.00 K/mcL Lymphocytes Abs 2.03 0.90 - 4.00 K/mcL Monocytes Abs 0.41 0.30 - 0.90 K/mcL Eosinophils Abs 0.32 0.00 - 0.50 K/mcL Basophils Abs 0.03 0.00 - 0.30 K/mcL IG Absolute 0.02 0.00 - 0.30 K/mcL Nucleated RBC 0.0 % Nucleated RBC Abs 0.00 0.00 - 0.00 K/mcL Specimen Performing Laboratory Blood [facility] [address] [place] [id number] PT/INR (04/20/2017 1:25 AM) Component Value Ref Range Protime (PT) 13.8 11.8 - 14.3 seconds INR 1.1 0.8 - 1.1 Specimen Performing Laboratory Blood [facility] [address] [place] [id number] Narrative During the induction phase of oral anticoagulation, the INR may not reflect the anticoagulation status of the patient. Therapeutic ranges for INR's are: Most clinical situations: INR 2.0-3.0 Mechanical Prosthetic Valve: INR 2.5-3.5 Critical: INR >5.0 Basic Metabolic Panel (04/20/2017 1:25 AM) Component Value Ref Range Sodium 139 135 - 145 mmol/L Potassium 3.9 3.5 - 5.1 mmol/L Chloride 102 98 - 108 mmol/L Bicarbonate 25 21 - 32 mmol/L Anion Gap 16 10 - 20 mmol/L Glucose 109 (H) 65 - 99 mg/dL BUN 12 8 - 25 mg/dL Creatinine 0.71 0.40 - 1.10 mg/dL eGFR 124 >=60 mL/min/1.73 m2 BUN/Creatinine Ratio 16.9 10.0 - 20.0 Calcium 9.3 8.4 - 10.2 mg/dL Specimen Performing Laboratory Blood [facility] [address] [place] [id number] Narrative The eGFR should be used for monitoring renal function only and not for medication dosing. CBC and Differential (04/20/2017 1:25 AM) Specimen Performing Laboratory Blood Narrative The following orders were created for panel order CBC and Differential. Procedure? Abnormality? Status? ---------? ------? CBC Auto Differential[[id number]]?Abnormal?Final result? Please view results for these tests on the individual orders. Urinalysis (04/20/2017 1:00 AM) Component Value Ref Range Color, Urine Yellow Colorless, Yellow Clarity, Urine Hazy (A) Clear Specific [place] 1.021 1.005 - 1.025 pH, Urine 6.0 5.0 - 7.0 Protein, Urine Negative Negative mg/dL Glucose, Urine Negative Negative mg/dL Ketones, Urine Negative Negative mg/dL Bilirubin, Urine Negative Negative Urobilinogen, Urine <2.0 <2.0 mg/dL Blood, Urine Large (A) Negative Nitrite, Urine Negative Negative Leukocyte Esterase, Urine Moderate (A) Negative WBCs, Urine 26 (H) 0 - 5 /hpf Bacteria, Urine Rare (A) None Seen /hpf Squamous Epithelial 4 0 - 4 /hpf Transitional Epithelial <1 0 - 1 /hpf Mucus, Urine Rare None Seen, Rare /lpf Specimen Performing Laboratory Urine [facility] [address] [place] [address] Narrative Microscopic examination is performed on all urinalysis samples and only positive findings are reported. The test for blood on the chemical analytic portion of urinalysis may also be positive due to hemoglobinuria and myoglobinuria and if red blood cells are present they are quantified by microscopic examination. hCG Urine, Qualitative (04/20/2017 1:00 AM) Component Value Ref Range Beta-hCG, Ur, Qual Negative Negative Specimen Performing Laboratory Urine [facility] [address] [place] [address] in this encounter Visit Diagnoses Diagnosis Cyst of left ovary - Primary Other and unspecified ovarian cyst Abnormal pelvic ultrasound Vaginal bleeding Other specified noninflammatory disorder of vagina Acute UTI Urinary tract infection, site not specified in this encounter Insurance Payer Benefit Plan / Group Subscriber ID Type Phone Address [facility] MANAGED MEDICAID U[employer] MEDICAID COMMUNITY PLAN [id number] as of this encounter
--- OUTSIDE RECORDS SUMMARY | 2018-09-23 14:42 | XMS RPT_ITS ---
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 you were seen in the emergency dep artment and the date of your visit. If you are unable to reach your doctor and are still experiencing problems, return to the emergency department. For assistance finding a primary care physician, call the Physician Referral Line at . Suicide Hotline: Your mental and emotional well-being is important. If you are in a mental health crisis or are having thoughts of suicide, please call the nationwide suicide hotline, anytime day or night, at 8-780-117-WBPT. Pharmacy Information: Below is a list of 24 hour pharmacies that we are aware of. We suggest that you call the specific pharmacy for their hours before traveling to a location. Hours may vary on holidays. [facility] [address], [place] [address] [phone] [address] [place], [place] [address] [phone] [address] [place], [place] [phone] [address], [place] [phone] [address], [place] [phone] [address], [place] [phone] [place], [place] [phone] Take all medications as directed. If you need prescription assistance, contact the following agencies: ?? Partnership for Prescription Assistance at or www.[employer].org ?? [facility] Best [facility] at or www.myFairPartnerbestrx.amprice ?? [employer] is a site with many valuable coupons Patient Education Materials TASNEEM HENRIQUEZ has been given the following patient education materials: Cardiovascular Paroxysmal Supraventricular Tachycardia Paroxysmal supraventricular tachycardia (PSVT) is a type of abnormal heart rhythm. It causes your heart to beat very quickly and then suddenly stop beating so quickly. A normal heart rate is 60?100 beat s per minute. During an episode of PSVT, your heart rate may be 150?250 beats per minute. This can make you feel light-headed and short of breath. An episode of PSVT can be frightening. It is usually not dangerous. The heart has four chambers. All chambers need to work together for the heart to beat effectively. A normal heartbeat usually starts in the right upper chamber of the heart (atrium) when an area (sinoat rial node) puts out an electrical signal that spreads to the other chambers. People with PSVT may have abnormal electrical pathways, or they may have other areas in the upper chambers that send out elec trical signals. The result is a very rapid heartbeat. When your heart beats very quickly, it does not have time to fill completely with blood. When PSVT happens often or it lasts for long periods, it can lead to heart weakness and failure. Most people with PSVT do not have any other heart disease. CAUSES Abnormal electrical activity in the heart causes PSVT. It is not known why some people get PSVT and others do not. RISK FACTORS You may be more likely to have PSVT if: ???You are 20?30 years old. ???You are a woman. Other factors that may increase your chances of an attack include: ???Stress. ???Being tired. ???Smoking. ???Stimulant drugs. ???Alcoholic drinks. ???Caffeine. ???. SIGNS AND SYMPTOMS A mild episode of PSVT may cause no symptoms. If you do have signs and symptoms, they may include: ???A pounding heart. ???Feeling of skipped heartbeats (palpitations). ???Weakness. ???Shortness of breath. ???Tightness or pain in your chest. ???Light-headedness. ???Anxiety. ???Dizziness. ???Sweating. ???Nausea. ???A fainting spell. DIAGNOSIS Your health care provider may suspect PSVT if you have symptoms that come and go. The health care provider will do a physical exam. If you are having an episode during the exam, the health care provider may be able to diagnose PSVT by listening to your heart and feeling your pulse. Tests may also be done, including: ???An electrical study of your heart (electrocardiogram, or ECG). ???A test in which you wear a portable ECG monitor all day (Holter monitor) or for several days (event monitor). ???A test that involves taking an image of your heart using sound waves (echocardiogram) to rule out other causes of a fast heart rate. TREATMENT You may not need treatment if episodes of PSVT do not happen often or if they do not cause symptoms. If PSVT episodes do cause symptoms, your health care provider may first suggest trying a self-treatme nt called vagus nerve stimulation. The vagus nerve extends down from the brain. It regulates certain body functions. Stimulating this nerve can slow down the heart. Your health care provider can teach y ou ways to do this. You may need to try a few ways to find what works best for you. Options include: ???Holding your breath and pushing, as though you are having a bowel movement. ???Massaging an area on one side of your neck below your jaw. ???Bending forward with your head between your legs. ???Bending forward with your head between your legs and coughing. ???Massaging your eyeballs with your eyes closed. If vagus nerve stimulation does not work, other treatment options include: ???Medicines to prevent an attack. ???Being treated in the hospital with medicine or electric shock to stop an attack (cardioversion). This treatment can include: ???Getting medicine through an IV line. ???Having a small electric shock delivered to your heart. You will be given medicine to make you sleep through this procedure. ???If you have frequent episodes with symptoms, you may need a procedure to get rid of the faulty areas of your heart (radiofrequency ablation) and end the episodes of PSVT. In this procedure: ???A long, thin tube (catheter) is passed through one of your veins into your heart. ???Energy directed through the catheter eliminates the areas of your heart that are causing abnormal electric stimulation. HOME CARE INSTRUCTIONS ???Take medicines only as directed by your health care provider. ???Do not use caffeine in any form if caffeine triggers episodes of PSVT. Otherwise, consume caffeine in moderation. This means no more than a few cups of coffee or the equivalent each day. ???Do not drink alcohol if alcohol triggers episodes of PSVT. Otherwise, limit alcohol intake to no more than 1 drink per day for non women and 2 drinks per day for men. One drink equals 12 ounc es of beer, 5 ounces of wine, or 1? ounces of hard liquor. ???Do not use any tobacco products, including cigarettes, chewing tobacco, or electronic cigarettes. If you need help quitting, ask your health care provider. ???Try to get at least 7 hours of sleep each night. ???Find healthy ways to manage stress. ???Perform vagus nerve stimulation as directed by your health care provider. ???Maintain a healthy weight. ???Get some exercise on most days. Ask your health care provider to suggest some good activities for you. SEEK MEDICAL CARE IF: ???You are having episodes of PSVT more often, or they are lasting longer. ???Vagus nerve stimulation is no longer helping. ???You have new symptoms during an episode. SEEK IMMEDIATE MEDICAL CARE IF: ???You have chest pain or trouble breathing. ???You have an episode of PSVT that has lasted longer than 20 minutes. ???You have passed out from an episode of PSVT. These symptoms may represent a serious problem that is an emergency. Do not wait to see if the symptoms will go away. Get medical help right away. Call your local emergency services (911 in the [place] D o not drive yourself to the hospital. This information is not intended to replace advice given to you by your health care provider. Make sure you discuss any questions you have with your health care provider. Document Released: 08/13/2006 Document Revised: 09/03/2015 Document Reviewed: 01/21/2015 [employer] Interactive Patient Education ?2016 [employer]. Obstetrics and Gynecology Urinary Tract Infection Urinary tract infections (UTIs) can develop anywhere along your urinary tract. Your urinary tract is your body's drainage system for removing wastes and extra water. Your urinary tract includes two kidn eys, two ureters, a bladder, and a urethra. Your kidneys are a pair of skinner-shaped organs. Each kidney is about the size of your fist. They are located below your ribs, one on each side of your spine. CAUSES Infections are caused by microbes, which are microscopic organisms, including fungi, viruses, and bacteria. These organisms are so small that they can only be seen through a microscope. Bacteria are the microbes that most commonly cause UTIs. SYMPTOMS Symptoms of UTIs may vary by age and gender of the patient and by the location of the infection. Symptoms in young women typically include a frequent and intense urge to urinate and a painful, burning f eeling in the bladder or urethra during urination. Older women and men are more likely to be tired, shaky, and weak and have muscle aches and abdominal pain. A fever may mean the infection is in your ki dneys. Other symptoms of a kidney infection include pain in your back or sides below the ribs, nausea, and vomiting. DIAGNOSIS To diagnose a UTI, your caregiver will ask you about your symptoms. Your caregiver also will ask to provide a urine sample. The urine sample will be tested for bacteria and white blood cells. White bloo d cells are made by your body to help fight infection. TREATMENT Typically, UTIs can be treated with medication. Because most UTIs are caused by a bacterial infection, they usually can be treated with the use of antibiotics. The choice of antibiotic and length of jennifer atment depend on your symptoms and the type of bacteria causing your infection. HOME CARE INSTRUCTIONS ???If you were prescribed antibiotics, take them exactly as your caregiver instructs you. Finish the medication even if you feel better after you have only taken some of the medication. ???Drink enough water and fluids to keep your urine clear or pale yellow. ???Avoid caffeine, tea, and carbonated beverages. They tend to irritate your bladder. ???Empty your bladder often. Avoid holding urine for long periods of time. ???Empty your bladder before and after sexual intercourse. ???After a bowel movement, women should cleanse from front to back. Use each tissue only once. SEEK MEDICAL CARE IF: ???You have back pain. ???You develop a fever. ???Your symptoms do not begin to resolve within 3 days. SEEK IMMEDIATE MEDICAL CARE IF: ???You have severe back pain or lower abdominal pain. ???You develop chills. ???You have nausea or vomiting. ???You have continued burning or discomfort with urination. MAKE SURE YOU: ???Understand these instructions. ???Will watch your condition. ???Will get help right away if you are not doing well or get worse. This information is not intended to replace advice given to you by your health care provider. Make sure you discuss any questions you have with your health care provider. Document Released: 05/23/2006 Document Revised: 09/03/2015 Document Reviewed: 09/20/2012 [employer] Interactive Patient Education ?2016 [employer] VIRUSES OR BACTERIA: WHAT'S GOT YOU SICK? Antibiotics only treat BACTERIAL infections. VIRAL ILLNESSES do not get better with antibiotics. When an antibiotic is not prescribed, ask your healthcare professional for tips on how to relieve symptoms and feel better. Usual Cause Illness Viruses Bacteria Antibiotic Needed? Cold/Runny Nose X NO Bronchitis/Chest Cold (in otherwise healthy adults) X NO Whooping Cough X Yes Flu (not complicated by pneumonia) X NO Strep Throat X Yes Sore Throat X NO Fluid in the Middle Ear (otitis media with effusion) X NO Urinary Tract Infection X Yes For more information visit: www.cdc.gov/getsmart <><><><><><><><><><><><><><><><><><><><><><><><><> Patient Visit Summary Signature TASNEEM HENRIQUEZ has been given the following list of patient education materials, prescriptions and follow-up instructions: IFERMIN COURTNEY K, have received the above patient education materials/instructions and have verbalized understanding: Date Time Patient Signature Date Time Provider Signature DEPART SUMMARY Observed: 05/19/2018 Status: C Source: [facility] 10:06 PM HEALTH SYSTEM REPOSITORY EMERGENCY DEPARTMENT DISCHARGE SUMMARY PATIENT NAME:TASNEEM HENRIQUEZ AGE: 22 Years SEX: Female PHONE:[id number] DOS: 05/19/2018 6:46 PM : 1995 ATTENDING PHYSICIAN:Gomez Cavanaugh MD PCP: Physician, No PCP CHIEF COMPLAINT: tachycardia Allergies amoxicillin (Hives) Problems Active No Chronic Problems DISCHARGE DIAGNOSIS: Acute UTI; SVT (supraventricular tachycardia); Tachycardia DISCHARGE INSTRUCTIONS: Paroxysmal Supraventricular Tachycardia; Urinary Tract Infection ED PHYSICIAN DOCUMENTATION: DISPOSITION: Time of Departure From ER 05/19/2018 22:06 Discharge/Transfer From ER Home 01 MEDICATION LISTS: CURRENT MEDICATION LIST nitrofurantoin (Macrobid macrocrystals-monohydrate 100 mg oral capsule) 1 Capsule By Mouth Twice a day for 3 Days. Refills: 0. ondansetron (Zofran ODT 4 mg oral tablet, disintegrating) 1 Tab(s) Under the Tongue 3 Times a day as needed Nausea and Vomitting for 3 Days. Refills: 0. MEDICATIONS GIVEN DURING MEDICAL VISIT Sodium Chloride 0.9% 1,000 mL last dose given on 05/19/2018 at 19:11 Route: Intravenous Bolus Infuse over 60 mins LAB RESULTS: LABORATORY TESTS: Pending Lab Result(s): Date Order Results 05/19/2018 19:51 Culture Urine + Susceptibility InProcess Abnormal Lab Result(s): Date Order Results 05/19/2018 19:24 RDW H 15.4 % 05/19/2018 19:23 Chloride Level H 108 mMol/L 05/19/2018 19:23 Potassium Level L 3.5 mMol/L 05/19/2018 19:23 BUN L 7 mg/dL 05/19/2018 19:28 Appearance Urine A HAZY 05/19/2018 19:28 Blood Urine A 10/UL 05/19/2018 19:28 Leukocyte Esterase Urine A 75/UL 05/19/2018 19:28 WBC Urine H 18 /hpf 05/19/2018 19:28 Bacteria Urine A RARE 05/19/2018 19:28 Squamous Epithelial Cells Urine A MANY 05/19/2018 19:28 Mucous Urine A RARE RADIOLOGY: RADIOLOGY RESULT(S) (Please contact Medical Records office for further information): 05/19/2018 19:46 XR Chest 1 View EXAMINATION TYPE: XR Chest 1 View DATE OF EXAM : 05/19/2018 7:55 PMHISTORY: Chest pain, tachycardiaCOMPARISON: NONEFINDINGS: The heart size is normal. The perihilar vascular pattern appears normal. No co nsolidation, pneumothorax, nor sizable pleural effusion is evident. Minimal dextroscoliotic curvature of the mid to lower thoracic spine.IMPRESSION: No acute cardiopulmonary findings.Bernadette Cummings thanks you for the opportunity to care for your patient. Workstation ID: [id number] FOLLOW UP: FOLLOW-UP APPOINTMENTS: Provider: Specialty: Address: Date: No PCP Physician Family Practice; Internal Medicine 05/20/18 Provider: Specialty: Address: Date: Matteo Porter MD [facility] [address] [facility] [address] (1) Follow-up as needed Comment: Call for an Appointment XR CHEST 1 VIEW Observed: 05/19/2018 Status: F Source: [facility] 7:55 PM HEALTH SYSTEM REPOSITORY EXAMINATION TYPE: XR Chest 1 View DATE OF EXAM : 05/19/2018 7:55 PM HISTORY: Chest pain, tachycardia COMPARISON: NONE FINDINGS: The heart size is normal. The perihilar vascular pattern appears normal. No consolidation, pneumothorax, nor sizable pleural effusion is evident. Minimal dextroscoliotic curvature of the mid to lower thoracic spine. IMPRESSION: No acute cardiopulmonary findings. Bernadette Cummings thanks you for the opportunity to care for your patient. Workstation ID: [id number] FINAL REPORT Dictated By: Matteo Gtz MD 05/19/2018 20:02 Assigned Physician: Matteo Gtz MD Reviewed and Electronically Signed By: Matteo Gtz MD 05/19/2018 20:03 Transcribed by: PATRICIA 05/19/2018 20:02 Technologist: JESSICA ED PHYSICIAN NOTES Observed: 05/19/2018 Status: F Source: [facility] 7:32 PM HEALTH SYSTEM REPOSITORY Chief Complaint tachycardia ED Assigned Provider/Time Time Seen: Gomez Cavanaugh MD W / 05/19/2018 18:58 History of Present Illness 22 year old female, otherwise healthy, presenting for evaluation of heart palpitations. Patient reports that today she began to experience sudden onset light-headedness and racing heartbeat. She sta jose that she has previously been to the emergency department for similar symptoms which resolved after unknown medications and observation. She denies any shortness of breath, fever, cough, abdominal pa in, vomiting, or diarrhea. She does note some nausea last night. Patient denies any recent travel, hormone therapy, or hemoptysis. She denies any history of blood clots. I have reviewed and agree with the nursing notes. REVIEW OF SYSTEMS: Constitutional: [No fevers, no chills] Eyes: [No visual changes] ENMT: [No sore throat, no rhinorrhea, no sinus congestion] Cardiovascular: [No chest pain, +palpitations] Respiratory: [No cough, no difficulty breathing] Gastrointestinal: [No abdominal pain, no nausea, no vomiting, no diarrhea, no constipation] Genitourinary: [No pain or burning with urination] Musculoskeletal: [No pain in extremities] Integumentary: [No rashes] Neurological: [No numbness, no tingling, no weakness, +light-headed, no headaches] Hematologic: [No bruising] All other systems reviewed are negative PHYSICAL EXAM: Temperature: 98.9 (05/19 20:42) Pulse: 76 (05/19 21:23) Respiration: 19 (05/19 21:23) BP: 103/64 (05/19 21:23) Pulse Ox: 100 (05/19 21:23) Oxygen Delivery: Room air (05/19 20:42) Pain Score: Not Charted PULSE OX INTERPRETATION: The Pulse ox is [100], which is [normal] Constitutional: [Alert. Well appearing. Well nourished. In no acute distress] Head: [Normocephalic. Atraumatic] Eyes: [PERRL. No scleral icterus] Nose: [Normal in appearance. No rhinorrhea] Mouth: [Moist mucous membranes] Neck: [Supple. Trachea midline.] Cardiovascular: [Tachycardic but regular. No murmurs, rubs, or gallops.] Respiratory: [Clear to auscultation bilaterally without wheezes, rhonchi, or rales. Equal air exchange without accessory muscle use.] Gastrointestinal: [Non-tender. Non-distended. Soft without rigidity.] Genitourinary: [Deferred] Skin: [Normal for age. No rash. No lesions.] Musculoskeletal: [No edema. Normal peripheral perfusion and pulses.] Neurologic: [Awake. Alert. Answers questions appropriately without slurred speech. No focal deficits] PREVIOUS RECORDS REVIEWED: [Yes] DIFFERENTIAL DIAGNOSIS: [SVT, Sinus tachycardia, Atrial Fibrillation or Flutter, Pneumothorax, PE] MEDICAL DECISION MAKING: [Patient with tachycardia, possibly SVT that is rate 130 upon my arrival in the room - patient already feeling somewhat better. Given fluid with slowing of HR to 70's - sin us rhythm. May have been in SVT with some lingering excitability/tachycardia. Did not need to perform any vagan/carlene blocking maneuvers. Labs and imaging reviewed. UA possibly infectious. Discussed with patient. Will treat with Macrobid for 3 days. Tachycardia resolved with IV fluids, and she has been sinus rhythm with a rate around 70 on the monitor for over 1 hour. She is asymptomatic. Repeat E CG is normal with no predisopositions to arrhythmia. D dimer negative, cxr clear. Hg wnl. Will discharge with PCP and cardiology follow-up.] [employer] SUPERINTENDENT INTERPRETATION: Rhythm strip interpreted by [myself] shows [sinus tachycardia] rhythm, rate of [ 130bpm ], no ectopy. 2nd W[employer]S SUPERINTENDENT INTERPRETATION: Rhythm strip interpreted by [myself] shows [sinus] rhythm, rate of [ 75bpm ], no ectopy. PROGRESS NOTES: [ ] NURSING NOTES: ER Progress Note DISPOSITION: Condition: [Stable]. Disposition: Discharged Date/Time: [ ] to Home Prescriptions:nitrofurantoin 100 mg, By Mouth Twice a day, 3 Day(s), 6 Cap Patient Education: Urinary Tract Infection, Paroxysmal Supraventricular Tachycardia Follow up with: Provider: No PCP Physician Specialty: Family Practice; Internal Medicine Address: Date: 05/20/18 Provider: Matteo Porter MD Specialty: [facility] Address: [address] [place] [address] (1) Date: Follow-up as needed Comment: Call for an Appointment Counseled: [Patient]. Notes: [ ] FINAL DIAGNOSIS: [ UTI; Tachycardia ] SCRIBE ATTESTATION: I, [ Carlene Amaya ], am serving as a scribe to document services personally performed by [facility] based on the patient's responses to questions from the provider and the provide r's statement to me. This chart accurately reflects the work and decisions made by me. Problem List/Past Medical History Ongoing No chronic problems Historical No qualifying data Medications Home No active home medications ED Administered Medications Sodium Chloride 0.9%: 1,000 mL Adm Date/time:05/19/2018 19:11 Route: IV Prescriptions Macrobid macrocrystals-monohydrate 100 mg oral capsule, 100 mg= 1 Cap, PO, BID Allergies amoxicillin (Hives) Social History Alcohol - Low Risk Current Substance Abuse - Denies Substance Abuse Tobacco Smoking Status: Never smoked Diagnostic Results LAB RESULTS: CHEMISTRY est crcl ibw (ml/min)-rx: 105.14 magnesium level: 2.2 gfr estimated : >60 gfr estimated non amer: >60 chloride level: 108 (High) Ref Range: 98 - 107 carbon dioxide level: 24 potassium level: 3.5 (Low) Ref Range: 3.6 - 5.1 sodium level: 142 anion gap: 10.0 bun: 7 (Low) Ref Range: 8 - 20 glucose level: 77 creatinine: 0.79 calcium total: 9.3 phosphorus level: 3.3 HEMATOLOGY wbc count: 8.4 red blood cell count: 4.09 hemoglobin: 13.3 hematocrit: 38.4 mcv: 93.9 mch: 32.5 mchc: 34.7 rdw: 15.4 (High) Ref Range: 11.0 - 14.8 platelet count: 196 mpv: 8.6 neutrophil absolute: 4.60 lymphocyte absolute: 2.80 monocyte absolute: 0.60 eosinophil absolute: 0.30 basophil absolute: 0.00 neutrophil: 54.5 lymphocyte: 33.7 monocyte: 7.4 eosinophil: 3.9 basophil: 0.5 COAGULATION prothrombin time (pt): 11.9 inr: 1.04 d dimer qn: <150 partial thromboplastin (aptt): 28.8 POINT OF CARE TESTING test poct -clinic: Negative URINALYSIS. appearance urine: HAZY (Abnormal) color urine: YELLOW ph urine: 6.0 specific gravity urine: 1.017 glucose urine: NORMAL blood urine: 10/UL (Abnormal) ketones urine: NEGATIVE protein urine: NEGATIVE urobilinogen urine: NORMAL bilirubin urine: NEGATIVE leukocyte esterase urine: 75/UL (Abnormal) nitrite urine: NEGATIVE wbc urine: 18 (High) Ref Range: 0 - 5 rbc urine: 3 bacteria urine: RARE (Abnormal) squamous epithelial cells urin: MANY (Abnormal) mucous urine: RARE (Abnormal) IMAGING RESULTS: Emergency Physician Interpretation: Radiologist Diagnostics Interpretation:Interpretation XR Chest 1 View 20:03:46 IMPRESSION: No acute cardiopulmonary findings. Bernadette Cummings thanks you for the opportunity to care for your patient. Workstation ID: [id number] - [id number] EKG INTERPRETATIONS: Time: [ 1854 ] Rate: [ 140bpm ] Rhythm: [ Possible SVT vs. Sinus Tachycardia ] Findings: [ No discernible P-waves. QRS 86, QTc 445. ] EKG interpreted by this ED provider. Time: [ 2155 ] Rate: [ 74bpm ] Rhythm: [ Normal sinus rhythm ] Findings: [ QTc 392. No predisopositions to arrhythmia on this ECG. No acute ST or T-wave changes. ] EKG interpreted by this ED provider. ORDERS PLACED:Laboratory CBC with Differential Gomez Cavanaugh MD May 19, 2018 19:06 Completed BMP (Basic Metabolic Panel) Gomez Cavanaugh MD May 19, 2018 19:06 Completed D-Dimer Quantitative Bimal Cavanaugh MDry Yue May 19, 2018 19:06 Completed [facility] 19, 2018 19:06 Completed Phosphorus Level Bimal Cavanaugh MDry Yue May 19, 2018 19:06 Completed PT w INR Martha Cavanaugh MDchary Yue May 19, 2018 19:06 Completed PTT Gomez Cavanaugh MD May 19, 2018 19:06 Completed Urinalysis with Reflex Microscopic + Reflex Culture Mao [facility]VALLE [facility] May 19, 2018 19:07 Completed Urine Test POCT (CO) [facility] May 19, 2018 19:07 Completed GF[facility] May 19, 2018 19:24 Completed GFRNAF Mao OVALLE [facility] May 19, 2018 19:24 Completed U MICRO [facility] May 19, 2018 19:51 Completed C URINE [facility] May 19, 2018 19:51 InProcess Xray Portable Chest 1 View XR [facility] May 19, 2018 19:06 Completed EKG / Respiratory / Ancillary EKG Gomez Cavanaugh MD May 19, 2018 18:52 Completed ECG 12 Lead Gomez Cavanaugh MD May 19, 2018 21:50 Completed URINALYSIS WITH Collected: 05/19/2018 Status: F Source: [facility] 7:28 PM [facility] WITH REFLEX REPOSITORY TYPE CODE TESTS RESULT OUT OF RANGE REFERENCE UNITS LAB 5803-2(LO 4.5-8.0 INC) Normal pH Urine 6.0 LAB 5804-0(LO NEGATIVE INC) Normal Protein Urine NEGATIVE LAB 5778-6(LO YELLOW INC) Normal Color Urine YELLOW LAB 5797-6(LO NEGATIVE INC) Normal Ketones Urine NEGATIVE LAB 23834-0(L NEGATIVE OINC) Normal Nitrite Urine NEGATIVE LAB 5767-9(LO CLEAR INC) Appearance Abnormal Urine HAZY LAB 5794-3(LO NEGATIVE INC) Blood Urine Abnormal 10/UL LAB 5799-2(LO NEGATIVE INC) Leukocyte Abnormal Esterase Urine 75/UL LAB 5792-7(LO NORMAL INC) Normal Glucose Urine NORMAL LAB 87459-5(L NEGATIVE OINC) Normal Bilirubin Urine NEGATIVE LAB 5811-5(LO 1.002-1.030 INC) Normal Specific [place] Urine 1.017 LAB 00940-2(L NORMAL OINC) Normal Urobilinogen NORMAL Urine Performed By: #### 89668-2, 37926-0 #### [facility], [address], [place]. URINALYSIS MICROSCOPIC Collected: 05/19/2018 Status: F Source: [facility] 7:28 PM [facility] REPOSITORY TYPE CODE TESTS RESULT OUT OF RANGE REFERENCE UNITS LAB 5769-5(MAYRA NONE/HPF NC) Bacteria Abnormal Urine RARE LAB 73723-8(LO 0-5 /hpf INC) Normal RBC Urine 3 LAB 5821-4x1(L 0-5 /hpf OINC) High WBC Urine 18 LAB 8247-9(MAYRA NONE/LPF NC) Mucous Abnormal Urine RARE LAB 01877-1(LO FEW/LPF INC) Squamous Abnormal Epithelial Cells MANY Urine Performed By: #### 41132-9, 86032-4 #### [facility], [address] [place] [address]. Observed: 05/19/2018 Status: F Source: [facility] CULTURE URINE + 7:28 [facility]ALTH SYSTEM SUSCEPTIBILITY REPOSITORY [facility] Microbiology PROCEDURE: Culture Urine + Susceptibility SOURCE: Urine BODY SITE: COLLECTED DATE/TIME: 05/19/2018 19:28 EDT RECEIVED DATE/TIME: 05/19/2018 19:28 EDT START DATE/TIME: 05/19/2018 19:28 EDT FREE TEXT SOURCE: URINE INTERFACED REPORTS Final Report [] Verified Date/Time/Personnel: 05/20/2018 17:46 EDT CONTRIBUTOR_SYSTEM, CO_PN ORGANISMS USUALLY ASSOCIATED WITH VAGINAL,URETHRAL, AND/OR SKIN CONTAMINATION PRESENT. Performed By: #### 630-4 #### [facility] [address], [place] CBC WITH DIFFERENTIAL Collected: 05/19/2018 Status: F Source: [facility] 7:24 PM [facility] REPOSITORY TYPE CODE TESTS RESULT OUT OF REFERENCE UNITS RANGE LAB 718-7(LOIN 12.0-16.0 gm/dL C) Normal Hemoglobin 13.3 LAB 94794-0(LO 2.0-8.0 % INC) Normal Monocyte 7.4 LAB 742-7(LOIN 0.00-0.90 thou/mcL C) Normal Monocyte 0.60 Absolute LAB 93335-6(LO 11.0-14.8 % INC) RDW High 15.4 LAB 88434-2(LO 3.80-5.10 million/mcL INC) Red Normal Blood Cell 4.09 Count LAB 65876-3(LO 25.0-45.0 % INC) Normal Lymphocyte 33.7 LAB 731-0(LOIN 1.00-4.80 thou/mcL C) Normal Lymphocyte 2.80 Absolute LAB 28454-8(LO 32.0-36.0 gm/dL INC) MCHC Normal 34.7 LAB 26997-8(LO 39.0-75.0 % INC) Normal Neutrophil 54.5 LAB 72898-0(LO 4.5-13.5 thou/mcL INC) WBC Normal Count 8.4 LAB 51357-3(LO 27.0-34.0 Picograms INC) MCH Normal 32.5 LAB 751-8(LOIN 1.80-7.70 thou/mcL C) Normal Neutrophil 4.60 Absolute LAB 65850-5(LO 80.0-97.0 FL INC) MCV Normal 93.9 LAB 47468-8(LO 6.2-12.1 FL INC) MPV Normal 8.6 LAB 84543-2(LO 0.0-2.0 % INC) Normal Basophil 0.5 LAB 704-7(LOIN 0.00-0.20 thou/mcL C) Normal Basophil 0.00 Absolute LAB 83699-8(LO 35.0-45.0 % INC) Normal Hematocrit 38.4 LAB 14655-9(LO 142-424 thou/mcL INC) Normal Platelet Count 196 LAB 14521-2(LO 0.0-7.0 % INC) Normal Eosinophil 3.9 LAB 711-2(LOIN 0.00-0.70 thou/mcL C) Normal Eosinophil 0.30 Absolute Performed By: #### 66724-0 #### [facility], [address] [place] [address]. PROTHROMBIN TIME Collected: 05/19/2018 Status: F Source: [facility] Z[facility]IL[facility] 7:24 PM HEALTH SYSTEM REPOSITORY TYPE CODE TESTS RESULT OUT OF RANGE REFERENCE UNITS LAB 5902-2(MAYRA 9.3-12.4 Sec NC) Prothrombin Normal Time (PT) 11.9 LAB 03971-1(LO INC) INR Normal 1.04 Result Comment: The recommended therapeutic INR range for most cardiac indications is 2.0-3.0. For high intensity therapy(ie.mechanical heart valves), the recommended range is 2.5-3.5. Performed By: #### 5902-2, 3173-2, 86379- 7 #### [facility], [address] [place] [address]. PARTIAL THROMBOPLASTIN Collected: 05/19/2018 Status: F Source: [facility] TIME (APTT) 7:24 PM [facility]ALTH SYSTEM REPOSITORY TYPE CODE TESTS RESULT OUT OF REFERENCE UNITS RANGE LAB 07352-7(LO 23.6-35.3 Sec INC) Partial Normal Thromboplastin 28.8 (aPTT) Performed By: #### 5902-2, 3173-2, 88658- 7 #### [facility], [address] [place] [address]. D-DIMER QUANTITATIVE Collected: 05/19/2018 Status: F Source: [facility] 7:24 PM [facility] REPOSITORY TYPE CODE TESTS RESULT OUT OF RANGE REFERENCE UNITS LAB 7799-0(LOIN 150-230 ng/mL C) Normal D Dimer <150 Qn Result Comment: NORMAL REFERENCE RANGE 150-230 NG/ML CUT OFF 230 NG/ML At this cut off level the negative predictive value for this test is 96-100% for venous thromboembolism(VTE) in patients with a low pre-test probability of deep vein thrombosis(DVT)/pulmonary embolism(PE). Clinical correlation is essential. When utilizing this test to rule out DVT or PE, this test is best used in the Emergency Department setting. These units correspond to ng/mL of D-DU or D-Dimer Units. Performed By: #### 5902-2, 3173-2, 56440- 7 #### [facility], [address] [place] [address]. GFRAA Collected: 05/19/2018 Status: F Source: [facility] 7:23 [facility] REPOSITORY TYPE CODE TESTS RESULT OUT OF RANGE REFERENCE UNITS LAB 03168-9(LO mL/min INC) GFR Normal Estimated >60 Result Comment: The MDRD equation has not been validated for those over 70 years, women, patients with serious co-morbid conditions, or with extremes of body size, muscle mass of nutritional status. Performed By: #### 00585-4, 75714-3c7, 12607-3, 99666-3, 88662-7 #### [facility], [address] [place] [address]. GFRBB Collected: 05/19/2018 Status: F Source: [facility] 7:23 [facility] REPOSITORY TYPE CODE TESTS RESULT OUT OF RANGE REFERENCE UNITS LAB 73751-3(LO mL/min INC) GFR Normal Estimated Non >60 Performed By: #### 74727-1, 93231-3y3, 54780-1, 95173-9, 32979-2 #### [facility], [address] [place] [address]. PHOSPHORUS LEVEL Collected: 05/19/2018 Status: F Source: [facility] 7:23 [facility] REPOSITORY TYPE CODE TESTS RESULT OUT OF RANGE REFERENCE UNITS LAB 82585-4(LO 2.4-4.7 mg/dL INC) Normal Phosphorus Level 3.3 Performed By: #### 38948-8, 26693-2x7, 30612-2, 30897-8, 11854-6 #### [facility], [address] [place] [address]. MAGNESIUM LEVEL Collected: 05/19/2018 Status: F Source: [facility] 7:23 [facility] REPOSITORY TYPE CODE TESTS RESULT OUT OF RANGE REFERENCE UNITS LAB 68480-5(LO 1.8-2.5 mg/dL INC) Normal Magnesium Level 2.2 Performed By: #### 48304-4, 35020-6n8, 07128-9, 52730-3, 98307-4 #### [facility], [address], [place]. BASIC METABOLIC PANEL Collected: 05/19/2018 Status: F Source: [facility] 7:23 PM [facility] REPOSITORY TYPE CODE TESTS RESULT OUT OF RANGE REFERENCE UNITS LAB 64167-8(LO 70-110 mg/dL INC) Glucose Normal Level 77 LAB 2028-9(MAYRA 22-32 mMol/L NC) Carbon Normal Dioxide Level 24 LAB 24751-2(LO 8-20 mg/dL INC) Low BUN 7 LAB 71521-5(LO 6.0-18.0 mMol/L INC) Anion Normal Gap 10.0 LAB 2075-0(MAYRA 98-107 mMol/L NC) High Chloride Level 108 LAB 58037-5(LO 8.9-10.3 mg/dL INC) Calcium Normal Total 9.3 LAB 2951-2(MAYRA 136-145 mMol/L NC) Sodium Normal Level 142 LAB 2160-0(MAYRA 0.66-1.30 mg/dL NC) Normal Creatinine 0.79 LAB 2823-3(MAYRA 3.6-5.1 mMol/L NC) Low Potassium Level 3.5 Performed By: #### 15321-1, 36319-5f9, 82645-9, 92837-4, 11464-8 #### [facility], [address] [place] [address]. ED PAT EDU Observed: 04/21/2018 Status: C Source: [facility] 7:19 AM [facility] SYSTEM REPOSITORY [address] [address] Emergency Department Discharge Instructions TASNEEM HENRIQUEZ , Please provide this information to your Primary Care/Specialist Name : TASNEEM HENRIQUEZ Current Date : 04/21/2018 07:19:20 : 1995 12:00 PM Primary Care Physician: Physician, No PCP Diagnosis : Bacterial vaginosis; STD exposure; Trichomonas infection Follow-Up Instructions: TASNEEM HENRIQUEZ has been given these follow-up instructions: FOLLOW-UP APPOINTMENTS: Provider: Specialty: Address: Date: [facility] ([facility]) [address] [address] (2) Comment: Call for an Appointment. Please do not engage in any sexual activity until you and your partner have completed treatment. Please use safe sex practices. Follow up with intensive care anaesthetist and return for any worsening symptoms. Laboratory Orders: Name: Status: Urine Test POCT (CO) Completed Urinalysis Manual POCT (CO) Completed Bacterial Vaginosis Rapid Completed Trichomonas Rapid Completed Basic Metabolic Panel Completed CBC with Differential Completed GFRaa Completed GFRbb Completed Radiology Orders: Name: Status: US Pelvis Non-OB Complete Completed US Transvaginal Completed Diagnostic Tests: None Ordered Procedure(s) and Patient Education(s) : Bacterial Vaginosis, Agpr-dp-Pwis; Sexually Transmitted Disease, Hkpq-ht-Lrjo; Trichomonas Test EMERGENCY SERVICES MEDICATION LIST Lista de Medicaciones de los Servicios de Emergencia Name TASNEEM HENRIQUEZ MRN ([facility])-[id number] PLEASE READ THE FOLLOWING REGARDING YOUR MEDICATIONS Based on the information available during your visit we have given you the medication instructions below. Continue taking medications you took prior to your visit unless you have been told to change. Pl ease share this information with your own doctor. Carry a list of your medications with you in case of an emergency. Update it when medications are stopped, doses are changed, or new medications (includ ing azif-iql-iaqkpcl products) are added. If you have any questions, check with your doctor. Por la informaci??n disponible joe noble visita, las instrucciones de medicaci??n aparecen debajo. Favor de continuar tomando las medicaciones Ud. jun?? antes de noble visita por lo menos que hay cambios. Favor de compartir esta informaci??n con noble medico. Lleva cleo lista de medicaciones consigo por shlomo de emergenc??a. Actualiza la lista cuando Ud. richar de keiry las medicaciones, si cambian las dosis, o si hay nuevas medicaciones a??adidas (incluyendo medicaciones vendidas sin prescripci??n). Favor de preguntar a noble medico por cualquier ari. THESE ARE THE MEDICATIONS YOU SHOULD BE TAKING ibuprofen (ibuprofen 600 mg oral tablet) 1 Tab(s) By Mouth 4 Times/Day as needed for pain for 3 Days. Refills: 0. MetroNIDAZOLE (Flagyl 500 mg oral tablet) 1 Tab(s) By Mouth every 8 hours for 7 Days. Refills: 0. ondansetron (Zofran ODT 4 mg oral tablet, disintegrating) 1 Tab(s) Under the Tongue 3 Times a day as needed Nausea and Vomitting for 3 Days. Refills: 0. MEDICATIONS GIVEN DURING MEDICAL VISIT ketorolac 15 mg last dose given on 04/21/2018 at 04:04 Route: IV Push ondansetron 4 mg last dose given on 04/21/2018 at 04:04 Route: IV Push Administer over 2 minutes (for IV Push) Sodium Chloride 0.9% 1,000 mL last dose given on 04/21/2018 at 04:04 Route: Intravenous Bolus, Infuse over 60 mins azithromycin 1 Gm last dose given on 04/21/2018 at 05:26 Route: By Mouth Separate From Aluminum And Magnesium Antacids By At Least 2 Hours ceftriaxone 1 Gm last dose given on 04/21/2018 at 05:27 Route: Intravenous metronidazole 2,000 mg last dose given on 04/21/2018 at 05:26 Route: By Mouth ondansetron 4 mg last dose given on 04/21/2018 at 05:22 Route: IV Push Administer over 2 minutes (for IV Push) NON-MEDICATION PRESCRIPTION SCHEDULING PHONE NUMBER: MEDICATION CHANGE DETAILS (Not your Final Home Medication List) During the course of your visit, your home medication list was updated with the most current information. The details of those changes are shown below: NEW MEDICATIONS Printed Prescriptions ibuprofen (ibuprofen 600 mg oral tablet) 1 Tab(s) By Mouth 4 Times/Day as needed for pain for 3 Days. Refills: 0. Comment MetroNIDAZOLE (Flagyl 500 mg oral tablet) 1 Tab(s) By Mouth every 8 hours for 7 Days. Refills: 0. Comment ondansetron (Zofran ODT 4 mg oral tablet, disintegrating) 1 Tab(s) Under the Tongue 3 Times a day as needed Nausea and Vomitting for 3 Days. Refills: 0. Comment UPDATED MEDICATIONS None UNCHANGED MEDICATIONS None STOP TAKING THESE MEDICATIONS None DO NOT TAKE UNTIL YOU TALK TO YOUR DOCTOR None [place] [address] Emergency Department Discharge Instructions Name: TASNEEM HENRIQUEZ Current Date: 04/21/2018 07:19:20 : 1995 12:00 PM Primary Physician: Physician, No PCP We would like to thank you for choosing [facility] for your emergency medical needs. We examined and treated you today on an emergency basis only. This was not a substitute for, or an effort to provide, complete medical care. In most cases, you must let your doctor (or the doctor we referred you to) check you again. Tell your doctor about any new or lasting problems. We cannot rec ognize and treat all injuries or illnesses in one emergency department visit. After you leave, you should follow the directions attached. Instructions for obtaining X-rays: When following up with your doctor, you may need to take copies of your x-rays that were done in the Emergency Department. If you didn't receive these upon your discharge from the emergency department, please call . When the final report becomes available and it is reviewed, the emergency department will attempt to contact you if there are any changes in your instructions. It is importan t that you leave accurate information with us on how to contact you. IF you cannot be contacted, YOU must contact the follow-up doctor that you were assigned to make sure that the final official x-ray r eport does not require a change in your treatment. Instructions for obtaining medical records: If you need a copy of your medical records for follow-up, please contact the Health Information Management Department at . Their office hours are 8 AM- 4:30 PM, Sunday through Sunday. Tommy lemons note: Results are not immediately available. Please allow a minimum of 36 hours for documentation and results. If you were prescribed an antibiotic: Antibiotics are life-saving drugs and they need to be used properly. Your team might change your antibiotic because test results show that a different antibiotic would be better to treat your infection. Like all medications, antibiotics have side effects. Some can be serious. This includes the risk of getting an antibiotic-resistant infection later, which may be difficult to treat. Remember to take yo ur antibiotics as prescribed. If you have any questions please talk to your healthcare team. Seatbelts: There is no doubt that seatbelts save lives. Every day, people without seatbelts have more serious injuries. Have everyone buckle up, using age appropriate seatbelts or car seats, to reduce their risk of injury. Smoking: If you do smoke, we encourage you to stop. Smoking affects all aspects of your health and the health of those around you. Call the [place] [employer] at 3-755-WMOO-[place] or the [place] [employer] at 7-706-OOH-5557 for more information. High blood pressure: Your screening blood pressure today was 108 mm Hg / . Hypertension (high blood pressure) is blood pressure over 120/80. People with hypertension should contact their primary care provider within 30 day s to follow up. Check your patient portal for additional blood pressure information. Immunizations: Immunization is a way to protect against deadly infections. Discuss this with your child's telecommunications network planner, or Public Health Department. Your family practice doctor can determine if you need pneumonia or f naz vaccine. The [facility] Department can be reached at . Domestic Violence: If you are a victim of domestic violence (physical, verbal, or emotional), you are not alone. Discuss this with your physician or a friend and call Choices Hotline ( for assistance and support. You are the most important factor in your recovery. Follow the provided instructions carefully. Take your medications as prescribed. Most importantly, see a doctor again as discussed. If you have problems that we have not discussed, call or visit your do ctor right away. If you do not have a primary care physician, we have provided one for you to follow up with. When you call for an appointment, please inform them that you were seen in the emergency dep artment and the date of your visit. If you are unable to reach your doctor and are still experiencing problems, return to the emergency department. For assistance finding a primary care physician, call the Physician Referral Line at . Suicide Hotline: Your mental and emotional well-being is important. If you are in a mental health crisis or are having thoughts of suicide, please call the nationwide suicide hotline, anytime day or night, at 1-681-324-VPVT. Pharmacy Information: Below is a list of 24 hour pharmacies that we are aware of. We suggest that you call the specific pharmacy for their hours before traveling to a location. Hours may vary on holidays. [facility] [place] [id number], [place] [phone] [address] [place], [place] [address] [phone] [address] [place], [place] [phone] [address] [place], [place] [phone] [address], [place] [phone] [address], [place] [phone] [place] [phone] Take all medications as directed. If you need prescription assistance, contact the following agencies: ?? Partnership for Prescription Assistance at or www.pparx.org ?? [place] at or www.myFairPartnerbestrx.org ?? www.[employer] Trackers is a site with many valuable coupons Patient Education Materials TASNEEM HENRIQUEZ has been given the following patient education materials: Obstetrics and Gynecology Bacterial Vaginosis Bacterial vaginosis is an infection of the vagina. It happens when too many germs (bacteria) grow in the vagina. Having this infection puts you at risk for getting other infections from sex. Treating th is infection can help lower your risk for other infections, such as: ???Chlamydia. ???Gonorrhea. ???HIV. ???Herpes. HOME CARE ???Take your medicine as told by your doctor. ???Finish your medicine even if you start to feel better. ???Tell your sex partner that you have an infection. They should see their doctor for treatment. ???During treatment: ???Avoid sex or use condoms correctly. ???Do not douche. ??? Do not drink alcohol unless your doctor tells you it is ok. ???Do not breastfeed unless your doctor tells you it is ok. GET HELP IF: ???You are not getting better after 3 days of treatment. ???You have more torres fluid (discharge) coming from your vagina than before. ???You have more pain than before. ???You have a fever. MAKE SURE YOU: ???Understand these instructions. ???Will watch your condition. ???Will get help right away if you are not doing well or get worse. This information is not intended to replace advice given to you by your health care provider. Make sure you discuss any questions you have with your health care provider. Document Released: 05/22/2009 Document Revised: 09/03/2015 Document Reviewed: 03/25/2014 [employer] Interactive Patient Education ?2016 [employer] Sexually Transmitted Disease A sexually transmitted disease (STD) is a disease or infection often passed to another person during sex. However, STDs can be passed through nonsexual ways. An STD can be passed through: ???Spit (saliva). ???Semen. ???Blood. ???Mucus from the vagina. ???Pee (urine). HOW CAN I LESSEN MY CHANCES OF GETTING AN STD?Use: ???Latex condoms. ???Water-soluble lubricants with condoms. Do not use petroleum jelly or oils. ???Dental dams. These are small pieces of latex that are used as a barrier during oral sex. ???Avoid having more than one sex partner. ??? Do not have sex with someone who has other sex partners. ???Do not have sex with anyone you do not know or who is at high risk for an STD. ???Avoid risky sex that can break your skin. ???Do not have sex if you have open sores on your mouth or skin. ???Avoid drinking too much alcohol or taking illegal drugs. Alcohol and drugs can affect your good judgment. ???Avoid oral and anal sex acts. ???Get shots (vaccines) for HPV and hepatitis. ???If you are at risk of being infected with HIV, it is advised that you take a certain medicine daily to prevent HIV infection. This is called pre-exposure prophylaxis (PrEP). You may be at risk if: ???You are a man who has sex with other men (MSM). ???You are attracted to the opposite sex (heterosexual) and are having sex with more than one partner. ???You take drugs with a needle. ???You have sex with someone who has HIV. ???Talk with your doctor about if you are at high risk of being infected with HIV. If you begin to take PrEP, get tested for HIV first. Get tested every 3 months for as long as you are taking PrEP. ???Get tested for STDs every year if you are sexually active. If you are treated for an STD, get tested again 3 months after you are treated. WHAT SHOULD I DO IF I THINK I HAVE AN STD?See your doctor. ???Tell your sex partner(s) that you have an STD. They should be tested and treated. ???Do not have sex until your doctor says it is okay. WHEN SHOULD I GET HELP? Get help right away if: ???You have bad belly (abdominal) pain. ???You are a man and have puffiness (swelling) or pain in your testicles. ???You are a woman and have puffiness in your vagina. This information is not intended to replace advice given to you by your health care provider. Make sure you discuss any questions you have with your health care provider. Document Released: 09/20/2005 Document Revised: 09/03/2015 Document Reviewed: 02/06/2014 [employer] Interactive Patient Education ?2016 [employer] Trichomonas Test The trichomonas test is done to diagnose trichomoniasis, an infection caused by an organism called Trichomonas. Trichomoniasis is a sexually transmitted infection (STI). In women, it causes vaginal infe ctions. In men, it can cause the tube that carries urine (urethra) to become inflamed (urethritis). You may have this test as a part of a routine screening for STIs or if you have symptoms of trichomoniasis. To perform the test, your health care provider will take a sample of discharge. The sample is taken from the vagina or cervix in women and from the urethra in men. A urine sample can also be used for testing. RESULTS It is your responsibility to obtain your test results. Ask the lab or department performing the test when and how you will get your results. Contact your health care provider to discuss any questions yo u have about your results. Meaning of Negative Test Results? A negative test means you do not have trichomoniasis. Follow your health care provider's directions about any follow-up testing. Meaning of Positive Test Results? A positive test result means you have an active infection that needs to be treated with antibiotic medicine. All your current sexual partners must also be treated or it is likely you will get reinfected. If your test is positive, your health care provider will start you on medicine and may advise you to: ???Not have sexual intercourse until your infection has cleared up. ???Use a latex condom properly every time you have sexual intercourse. ???Limit the number of sexual partners you have. The more partners you have, the greater your risk of adriana trichomoniasis or another STI. ???Tell all sexual partners about your infection so they can also be treated and to prevent reinfection. This information is not intended to replace advice given to you by your health care provider. Make sure you discuss any questions you have with your health care provider. Document Released: 09/15/2005 Document Revised: 09/03/2015 Document Reviewed: 08/25/2014 [employer] Interactive Patient Education ?2016 [employer]. VIRUSES OR BACTERIA: WHAT'S GOT YOU SICK? Antibiotics only treat BACTERIAL infections. VIRAL ILLNESSES do not get better with antibiotics. When an antibiotic is not prescribed, ask your healthcare professional for tips on how to relieve symptoms and feel better. Usual Cause Illness Viruses Bacteria Antibiotic Needed? Cold/Runny Nose X NO Bronchitis/Chest Cold (in otherwise healthy adults) X NO Whooping Cough X Yes Flu (not complicated by pneumonia) X NO Strep Throat X Yes Sore Throat X NO Fluid in the Middle Ear (otitis media with effusion) X NO Urinary Tract Infection X Yes For more information visit: www.cdc.gov/getsmart <><><><><><><><><><><><><><><><><><><><><><><><><> Patient Visit Summary Signature TASNEEM HENRIQUEZ has been given the following list of patient education materials, prescriptions and follow-up instructions: I TASNEEM HENRIQUEZ, have received the above patient education materials/instructions and have verbalized understanding: Date Time Patient Signature Date Time Provider Signature DEPART SUMMARY Observed: 04/21/2018 Status: C Source: [facility] 7:19 AM [facility] SYSTEM REPOSITORY EMERGENCY DEPARTMENT DISCHARGE SUMMARY PATIENT NAME:TASNEEM HENRIQUEZ AGE: 22 Years SEX: Female PHONE:[id number] DOS: 04/21/2018 2:08 AM : 1995 ATTENDING PHYSICIAN:Roselyn Araya MD PCP: Physician, No PCP CHIEF COMPLAINT: Lower Abd pain w/ vag bleeding Allergies amoxicillin (Hives) Problems Active No Chronic Problems DISCHARGE DIAGNOSIS: Bacterial vaginosis; STD exposure; Trichomonas infection DISCHARGE INSTRUCTIONS: Bacterial Vaginosis, [id number]; Sexually Transmitted Disease, [id number]; Trichomonas Test ED PHYSICIAN DOCUMENTATION: DISPOSITION: Time of Departure From ER 04/21/2018 07:19 Discharge/Transfer From ER Home 01 MEDICATION LISTS: CURRENT MEDICATION LIST ibuprofen (ibuprofen 600 mg oral tablet) 1 Tab(s) By Mouth 4 Times/Day as needed for pain for 3 Days. Refills: 0. MetroNIDAZOLE (Flagyl 500 mg oral tablet) 1 Tab(s) By Mouth every 8 hours for 7 Days. Refills: 0. ondansetron (Zofran ODT 4 mg oral tablet, disintegrating) 1 Tab(s) Under the Tongue 3 Times a day as needed Nausea and Vomitting for 3 Days. Refills: 0. MEDICATIONS GIVEN DURING MEDICAL VISIT ketorolac 15 mg last dose given on 04/21/2018 at 04:04 Route: IV Push ondansetron 4 mg last dose given on 04/21/2018 at 04:04 Route: IV Push Administer over 2 minutes (for IV Push) Sodium Chloride 0.9% 1,000 mL last dose given on 04/21/2018 at 04:04 Route: Intravenous Bolus, Infuse over 60 mins azithromycin 1 Gm last dose given on 04/21/2018 at 05:26 Route: By Mouth Separate From Aluminum And Magnesium Antacids By At Least 2 Hours ceftriaxone 1 Gm last dose given on 04/21/2018 at 05:27 Route: Intravenous metronidazole 2,000 mg last dose given on 04/21/2018 at 05:26 Route: By Mouth ondansetron 4 mg last dose given on 04/21/2018 at 05:22 Route: IV Push Administer over 2 minutes (for IV Push) LAB RESULTS: LABORATORY TESTS: Pending Lab Result(s): Date Order Results 04/21/2018 03:45 Chlamydia Detection by NAAT InProcess 04/21/2018 03:45 GC Detection by NAAT InProcess Abnormal Lab Result(s): Date Order Results 04/21/2018 02:24 Specific [place] Urine POCT N 1.015 04/21/2018 02:24 pH Urine POCT N 6 04/21/2018 04:04 RDW H 16.1 % 04/21/2018 04:04 Neutrophil Absolute H 9.50 thou/mcL 04/21/2018 04:04 Neutrophil H 80.9 % 04/21/2018 04:04 Lymphocyte L 10.5 % 04/21/2018 04:04 Trichomonas A POSITIVE 04/21/2018 04:04 Bacterial Vaginosis A POSITIVE RADIOLOGY: RADIOLOGY RESULT(S) (Please contact Medical Records office for further information): 04/21/2018 04:10 US Pelvis Non-OB Complete EXAMINATION TYPE: US Pelvis Non-OB Complete, US TransvaginalDATE OF EXAM : 04/21/2018 4:29 AMHISTORY: 22-year-old female, pelvic pain, Ovarian Cyst.COMPARISON: OB ultrasound of 09/29/2017.FINDINGS: Trans abdominal and transvaginal pelvic sonography was performed. An anteverted normal sized uterus is identified measuring 8.8 x 3.8 x 5.2 cm. Uterine echotexture is maintained. The endometrial echo complex is within normal limits for thickness measuring 9 mm. A moderate amount of pelvic free fluid is shown. The urinary bladder is grossly unremarkable on the transabdominal imaging.A complex cystic 2.3 x 1. 8 x 2.7 cm lesion is identified on the left ovary. The left ovary itself measures 3.3 x 3.0 x 2.3 cm. The right ovary is sonographically unremarkable and measures 3.0 x 2.0 x 2.4 cm.Left intraovarian ar terial and venous flow is really shown on both color and pulse Doppler evaluation. The right ovary was only assessed with color Doppler evaluation.IMPRESSION: A complex cystic 2.3 x 1.8 x 2.7 cm left ov harsh lesion may represent a corpus luteum. A moderate amount of pelvic free fluid is also noted which is greater than typically expected for physiologic fluid. This could be on the basis of ruptured cy st/follicle. Otherwise, unremarkable pelvic ultrasound. If there is persisting clinical concern for an acute process within the abdomen or pelvis, a CT could be obtained.Bernadette Cummings thanks you for the opportunity to care for your patient. Workstation ID: [id number] 04/21/2018 04:29 US Transvaginal EXAMINATION TYPE: US Pelvis Non-OB Complete, US TransvaginalDATE OF EXAM : 04/21/2018 4:29 AMHISTORY: 22-year-old female, pelvic pain, Ovarian Cyst.COMPARISON: OB ultrasound of 09/29/2017.FINDINGS: Trans abdominal and transvaginal pelvic sonography was performed. An anteverted normal sized uterus is identified measuring 8.8 x 3.8 x 5.2 cm. Uterine echotexture is maintained. The endometrial echo complex is within normal limits for thickness measuring 9 mm. A moderate amount of pelvic free fluid is shown. The urinary bladder is grossly unremarkable on the transabdominal imaging.A complex cystic 2.3 x 1. 8 x 2.7 cm lesion is identified on the left ovary. The left ovary itself measures 3.3 x 3.0 x 2.3 cm. The right ovary is sonographically unremarkable and measures 3.0 x 2.0 x 2.4 cm.Left intraovarian ar terial and venous flow is really shown on both color and pulse Doppler evaluation. The right ovary was only assessed with color Doppler evaluation.IMPRESSION: A complex cystic 2.3 x 1.8 x 2.7 cm left ov harsh lesion may represent a corpus luteum. A moderate amount of pelvic free fluid is also noted which is greater than typically expected for physiologic fluid. This could be on the basis of ruptured cy st/follicle. Otherwise, unremarkable pelvic ultrasound. If there is persisting clinical concern for an acute process within the abdomen or pelvis, a CT could be obtained.Bernadette Cummings thanks you for the opportunity to care for your patient. Workstation ID: [id number] FOLLOW UP: FOLLOW-UP APPOINTMENTS: Provider: Specialty: Address: Date: [facility] ([facility]) [address] [place], [place] [id number] [phone] Comment: Call for an Appointment. Please do not engage in any sexual activity until you and your partner have completed treatment. Please use safe sex practices. Follow up with intensive care anaesthetist and return for any worsening symptoms. PROGRESS NOTES Observed: 04/21/2018 Status: F Source: [facility] 6:53 AM [facility] SYSTEM REPOSITORY Patient: TASNEEM HENRIQUEZ MRN: ([facility])-[id number] Age: 22 years Sex: Female : 1995 Associated Diagnoses: None Author: Juan Porter MD CARPENTRY SUPERVISOR Consult Note Supervising Physician Comments Documentation By: Resident Physician. Comments Reason for consult: _ HPI: The patient is a _yo G_P_ who presents for _. ROS: A complete review of systems was negative other than what was mentioned in the HPI. Outpatient Medications: No discharge medications charted PMH: No qualifying data available. Past obstetric history: History ,0,0,0 No previous pregnancies history have been recorded Past financial analysis consultant history: _history of STIs. _history of abnormal pap smears. _regular menstrual cycles Past surgical history: No qualifying data available. Social history: _tobacco, _etoh, _drug use. Family history: _ Vital signs: 04/21/18 05:21:53 Pulse: 71 BP: 122/80 Respiration: 16 Pulse Ox: 100 PE: Gen - NAD Lungs - CTAB Heart - RRR Abdomen - soft, NT LE - warm, NT Pelvic exam: _ Labs: CBC WBC Count: 11.8 thou/mcL (04/21/18 04:04:00) Red Blood Cell Count: 3.91 million/mcL (04/21/18 04:04:00) Hemoglobin: 12.1 gm/dL (04/21/18 04:04:00) Hematocrit: 36.2 % (04/21/18 04:04:00) MCV: 92.6 FL (04/21/18 04:04:00) MCH: 31 Picograms (04/21/18 04:04:00) MCHC: 33.5 gm/dL (04/21/18 04:04:00) RDW: 16.1 % High (04/21/18 04:04:00) Platelet Count: 164 thou/mcL (04/21/18 04:04:00) MPV: 8.7 FL (04/21/18 04:04:00) Chemistry Sodium Level: 139 mMol/L (04/21/18 04:04:00) Potassium Level: 4 mMol/L (04/21/18 04:04:00) Chloride Level: 106 mMol/L (04/21/18 04:04:00) Carbon Dioxide Level: 24 mMol/L (04/21/18 04:04:00) Anion Gap: 9 mMol/L (04/21/18 04:04:00) Glucose Level: 101 mg/dL (04/21/18 04:04:00) BUN: 10 mg/dL (04/21/18 04:04:00) Creatinine: 0.86 mg/dL (04/21/18 04:04:00) Est CrCl IBW (mL/min)-RX: 92.08 mL/min (04/21/18 04:04:00) GFR Estimated Non : >60 (04/21/18 04:04:00) GFR Estimated : >60 (04/21/18 04:04:00) Calcium Total: 9.3 mg/dL (04/21/18 04:04:00) Imaging: Transabdominal and transvaginal pelvic sonography was performed. An anteverted normal sized uterus is identified measuring 8.8 x 3.8 x 5.2 cm. Uterine echotexture is maintained. The endometrial echo complex is within normal limits for thickness measuring 9 mm. A moderate amount of pelvic free fluid is shown. The urinary bladder is grossly unremarkable on the transabdominal imaging. A complex cystic 2.3 x 1.8 x 2.7 cm lesion is identified on the left ovary. The left ovary itself measures 3.3 x 3.0 x 2.3 cm. The right ovary is sonographically unremarkable and measures 3.0 x 2.0 x 2.4 cm. Left intraovarian arterial and venous flow is really shown on both color and pulse Doppler evaluation. The right ovary was only assessed with color Doppler evaluation. IMPRESSION: A complex cystic 2.3 x 1.8 x 2.7 cm left ovarian lesion may represent a corpus luteum. A moderate amount of pelvic free fluid is also noted which is greater than typically expected for physiologic flui d. This could be on the basis of ruptured cyst/follicle. Otherwise, unremarkable pelvic ultrasound. If there is persisting clinical concern for an acute process within the abdomen or pelvis, a CT could be obtained. Assesment and Plan: _yo G_P_ _ Dispo:_ Discussed with and images reviewed with Dr. Christian Porter MD Velocity Shooter PGY2 US TRANSVAGINAL Observed: 04/21/2018 Status: F Source: [facility] 4:29 AM [facility] SYSTEM REPOSITORY EXAMINATION TYPE: US Pelvis Non-OB Complete, US Transvaginal DATE OF EXAM : 04/21/2018 4:29 AM HISTORY: 22-year-old female, pelvic pain, Ovarian Cyst. COMPARISON: OB ultrasound of 09/29/2017. FINDINGS: Transabdominal and transvaginal pelvic sonography was performed. An anteverted normal sized uterus is identified measuring 8.8 x 3.8 x 5.2 cm. Uterine echotexture is maintained. The endometrial echo complex is within normal limits for thickness measuring 9 mm. A moderate amount of pelvic free fluid is shown. The urinary bladder is grossly unremarkable on the transabdominal imaging. A complex cystic 2.3 x 1.8 x 2.7 cm lesion is identified on the left ovary. The left ovary itself measures 3.3 x 3.0 x 2.3 cm. The right ovary is sonographically unremarkable and measures 3.0 x 2.0 x 2.4 cm. Left intraovarian arterial and venous flow is really shown on both color and pulse Doppler evaluation. The right ovary was only assessed with color Doppler evaluation. IMPRESSION: A complex cystic 2.3 x 1.8 x 2.7 cm left ovarian lesion may represent a corpus luteum. A moderate amount of pelvic free fluid is also noted which is greater than typically expected for physiologic flui d. This could be on the basis of ruptured cyst/follicle. Otherwise, unremarkable pelvic ultrasound. If there is persisting clinical concern for an acute process within the abdomen or pelvis, a CT could be obtained. Bernadette Cummings thanks you for the opportunity to care for your patient. Workstation ID: [id number] FINAL REPORT Dictated By: Alfredo Murray MD 04/21/2018 04:44 Assigned Physician: Alfredo Murray MD Reviewed and Electronically Signed By: Alfredo Murray MD 04/21/2018 04:47 Transcribed by: PATRICIA 04/21/2018 04:44 Technologist: GARY US PELVIS NON-OB Observed: 04/21/2018 Status: F Source: [facility] COMPLETE 4:29 AM [facility] SYSTEM REPOSITORY EXAMINATION TYPE: US Pelvis Non-OB Complete, US Transvaginal DATE OF EXAM : 04/21/2018 4:29 AM HISTORY: 22-year-old female, pelvic pain, Ovarian Cyst. COMPARISON: OB ultrasound of 09/29/2017. FINDINGS: Transabdominal and transvaginal pelvic sonography was performed. An anteverted normal sized uterus is identified measuring 8.8 x 3.8 x 5.2 cm. Uterine echotexture is maintained. The endometrial echo complex is within normal limits for thickness measuring 9 mm. A moderate amount of pelvic free fluid is shown. The urinary bladder is grossly unremarkable on the transabdominal imaging. A complex cystic 2.3 x 1.8 x 2.7 cm lesion is identified on the left ovary. The left ovary itself measures 3.3 x 3.0 x 2.3 cm. The right ovary is sonographically unremarkable and measures 3.0 x 2.0 x 2.4 cm. Left intraovarian arterial and venous flow is really shown on both color and pulse Doppler evaluation. The right ovary was only assessed with color Doppler evaluation. IMPRESSION: A complex cystic 2.3 x 1.8 x 2.7 cm left ovarian lesion may represent a corpus luteum. A moderate amount of pelvic free fluid is also noted which is greater than typically expected for physiologic flui d. This could be on the basis of ruptured cyst/follicle. Otherwise, unremarkable pelvic ultrasound. If there is persisting clinical concern for an acute process within the abdomen or pelvis, a CT could be obtained. Bernadette Cummings thanks you for the opportunity to care for your patient. Workstation ID: [id number] FINAL REPORT Dictated By: Alfredo Murray MD 04/21/2018 04:44 Assigned Physician: Alfredo Murray MD Reviewed and Electronically Signed By: Alfredo Murray MD 04/21/2018 04:47 Transcribed by: PATRICIA 04/21/2018 04:44 Technologist: GARY ED PHYSICIAN NOTES Observed: 04/21/2018 Status: F Source: [facility] 4:12 AM [facility] REPOSITORY Chief Complaint Lower Abd pain w/ vag bleeding ED Assigned Provider/Time Time Seen: Roselyn Araya MD / 04/21/2018 03:17 History of Present Illness This patient is a 22-year-old female with no significant medical history who presents to the ED for evaluation of lower abdominal pain and vaginal bleeding. The patient was evaluated at Urgent Care earlier today. She was diagnosed with kidney infection and sent home on Keflex. However, she did not take any of the antibiotics. The patient states she went home and went to sleep after leaving Urgent Care. When she awoke, the pain was significantly worse, which is what prompted her to come to the ED. Associated symptoms include nausea and vaginal discharge. LMP 04/02/2018. I have reviewed and agree with the nursing notes. REVIEW OF SYSTEMS: Constitutional: [No fevers, No chills] Eyes: [No visual changes] ENMT: [No sore throat, no runny nose, no stuffy nose] Cardiovascular: [No chest pain, No palpitations] Respiratory: [No cough, no difficulty breathing] Gastrointestinal: [+ abdominal pain, + nausea, no vomiting, no diarrhea, no constipation] Genitourinary: [No pain with urination, no burning with urination, +vaginal bleeding, +vaginal discharge] Musculoskeletal: [No pain in extremities] Integumentary: [No rashes] Neurological: [No numbness, no tingling, no weakness] Hematologic: [No bruising] All other systems reviewed are negative PHYSICAL EXAM: Temperature: 98.4 (04/21 05:21) Pulse: 71 (04/21 05:21) Respiration: 16 (04/21 05:21) BP: 122/80 (04/21 05:21) Pulse Ox: 100 (04/21 05:21) Oxygen Delivery: Not Charted O2 Device Flow: Pain Score: 4 (04/21 05:13) PULSE OX INTERPRETATION: The Pulse ox is [100], which is [normal] Constitutional: [Alert, Well appearing, Well nourished, in no acute distress] Head: [Normocephalic, Atraumatic] Eyes: [PERRL, no scleral icterus] Nose: [Normal in appearance, no rhinorrhea] Mouth: [Moist mucous membranes] Neck: [Supple, trachea midline] Cardiovascular: [Regular rate and rhythm, no murmurs, rubs, gallops] Respiratory: [Clear to auscultation bilaterally without wheezes, rhonchi, rales. Equal air exchange without accessory muscle use] Gastrointestinal: [Suprapubic tenderness, no guarding, no rebound tenderness. Non-distended. Soft without rigidity] Genitourinary: [Pelvic exam: external genitalia within normal limits, copious yellow discharge, no blood in the vault, positive CMT, bilateral adnexal tenderness. ] Skin: [Normal for age, no rash or lesions] Musculoskeletal: [No edema, normal peripheral perfusion and pulses, normal dorsalis pedis and radial pulses.] Neurologic: [Awake, alert, answers questions appropriately without slurred speech, no focal deficits] DIFFERENTIAL DIAGNOSIS: [UTI, Bladder infection, Dysfunctional uterine bleeding] MEDICAL DECISION MAKING: [Patient is not with vaginal bleeding and discharge. Recent diagnosis of kidney infection earlier on Keflex. Check pelvic exam, pain control, and continue to monitor. ] WATER AND SEWER SYSTEMS SUPERINTENDENT INTERPRETATION: Rhythm strip interpreted by [ ] shows [ ] rhythm, rate of [ ], no ectopy. PREVIOUS RECORDS REVIEWED: [ Yes] CRITICAL CARE TIME: My attention was given to the direct care of this patient for [ ] minutes of critical care time due to (include reason) [ ]. The critical care treatment and management interventions I performed included [ ] Time spent teaching and performing procedures billed separately is not included. This time is exclusively billable from procedures. PROGRESS NOTES: [0508 - CARPENTRY SUPERVISOR paged for consultation. 0510 - Discussed with CARPENTRY SUPERVISOR. They will be down as soon as they are available. 0658 Patient seen and evaluated by cook dessert, patient likely with cyst, low suspicion for TOA, plan to treat for STDs and BV, patient will be given follow up and return precautions ] DISCHARGE PLAN: Condition: [Stable]. Disposition: [Medically cleared],DischargedDate/Time: [ ] to Home Prescriptions:NONE Limitations: [Limited activity, Limited work, No school, No sports, No heavy lifting.] Patient Education: No patient education charted Follow up with: No follow-up charted Counseled: [Patient]. FINAL DIAGNOSIS: [1. Trichomonas, 2. Bacterial vaginosis, 3. Pelvic inflammatory disease] SCRIBE ATTESTATION: I, [Ana Lilia Her], am serving as a scribe to document services personally performed by Dr. Horan] based on the patient's responses to questions from the provider and the provider' s statement to me. This chart accurately reflects the work and decisions made by me. Problem List/Past Medical History Ongoing No chronic problems Historical No qualifying data Medications Home No active home medications ED Administered Medications ketorolac: 15 mg Adm Date/time:04/21/2018 04:04 Route: IV Push ondansetron: 4 mg Adm Date/time:04/21/2018 04:04 Route: IV Push Sodium Chloride 0.9%: 1,000 mL Adm Date/time:04/21/2018 04:04 Route: IV azithromycin: 1 Gm Adm Date/time:04/21/2018 05:26 Route: PO ceftriaxone: 1 Gm Adm Date/time:04/21/2018 05:27 Route: IV metronidazole: 2,000 mg Adm Date/time:04/21/2018 05:26 Route: PO ondansetron: 4 mg Adm Date/time:04/21/2018 05:22 Route: IV Push Prescriptions No active Prescriptions Allergies amoxicillin (Hives) Social History Alcohol - Low Risk Current Substance Abuse - Denies Substance Abuse Tobacco No qualifying data available. Lab Results POINT OF CARE TESTING test poct -clinic: Negative urine color poct -clinic: Red urine clarity poct -clinic: Hazy glucose urine poct: Negative (Normal) bilirubin urine poct: Negative (Normal) ketones urine poct: 2+ moderate specific gravity urine poct: 1.015 blood urine poct: 3+ large ph urine poct: 6 protein urine poct: 3+ nitrite urine poct: Negative (Normal) leukocytes urine poct: 2+ moderate CHEMISTRY est crcl ibw (ml/min)-rx: 92.08 gfr estimated : >60 chloride level: 106 carbon dioxide level: 24 potassium level: 4.0 sodium level: 139 anion gap: 9.0 bun: 10 glucose level: 101 creatinine: 0.86 calcium total: 9.3 gfr estimated non amer: >60 HEMATOLOGY wbc count: 11.8 red blood cell count: 3.91 hemoglobin: 12.1 hematocrit: 36.2 mcv: 92.6 mch: 31.0 mchc: 33.5 rdw: 16.1 (High) Ref Range: 11.0 - 14.8 platelet count: 164 mpv: 8.7 neutrophil absolute: 9.50 (High) Ref Range: 1.80 - 7.70 lymphocyte absolute: 1.20 monocyte absolute: 0.90 eosinophil absolute: 0.10 basophil absolute: 0.00 neutrophil: 80.9 (High) Ref Range: 39.0 - 75.0 lymphocyte: 10.5 (Low) Ref Range: 25.0 - 45.0 monocyte: 7.3 eosinophil: 1.1 basophil: 0.2 MICROBIOLOGY bacterial vaginosis: POSITIVE (Abnormal) trichomonas: POSITIVE (Abnormal) IMAGING RESULTS: Emergency Physician Interpretation: Radiologist CT Interpretation: Interpretation No qualifying data available. Emergency Physician Interpretation: Radiologist Diagnostics Interpretation: Interpretation No qualifying data available. Emergency Physician Interpretation: Radiologist US Interpretation: Interpretation US Transvaginal 04:47:03 IMPRESSION: A complex cystic 2.3 x 1.8 x 2.7 cm left ovarian lesion may represent a corpus luteum. A moderate amount of pelvic free fluid is also noted which is greater than typically expected for physiologic flu id. This could be on the basis of ruptured cyst/follicle. Otherwise, unremarkable pelvic ultrasound. If there is persisting clinical concern for an acute process within the abdomen or pelvis, a CT could be obtained. Bernadette Cummings thanks you for the opportunity to care for your patient. Workstation ID: [id number] Emergency Physician Interpretation: Radiologist MRI Interpretation: Interpretation No qualifying data available. EKG INTERPRETATIONS: Time: [ ] Rate: [ ] Rhythm: [ ] Findings: [ ] EKG interpretation by this ED physician: ORDERS PLACED: Laboratory Laboratory Urine Test POCT (CO) Roselyn Araya MD April 21, 2018 02:17 Completed Urinalysis Manual POCT (CO) Roselyn Araya MD April 21, 2018 02:18 Completed Bacterial Vaginosis Rapid Roselyn Araya MD April 21, 2018 03:45 Completed Trichomonas Rapid Roselyn Araya MD April 21, 2018 03:45 Completed Basic Metabolic Panel Roeslyn Araya MD April 21, 2018 03:47 Completed CBC with Differential Roselyn Araya MD April 21, 2018 03:47 Completed [facility] April 21, 2018 04:15 Completed Roselyn Badillo MD April 21, 2018 04:15 Completed Chlamydia Detection by Roselyn Condon MD April 21, 2018 03:45 Ordered GC Detection by Roselyn Condon MD April 21, 2018 03:[address] / MRI / Ultrasound Transabdominal and Transvaginal Pelvic US Roselyn Araya MD April 21, 2018 03:45 Completed US Transvaginal Roselyn Araya MD April 21, 2018 04:28 Completed final CBC WITH DIFFERENTIAL Collected: 04/21/2018 Status: F Source: [facility] 4:04 AM [facility] SYSTEM REPOSITORY TYPE CODE TESTS RESULT OUT OF REFERENCE UNITS RANGE LAB 99093-1(LO 4.5-13.5 thou/mcL INC) WBC Normal Count 11.8 LAB 35275-2(LO 25.0-45.0 % INC) Low Lymphocyte 10.5 LAB 731-0(LOIN 1.00-4.80 thou/mcL C) Normal Lymphocyte 1.20 Absolute LAB 96378-7(LO 80.0-97.0 FL INC) MCV Normal 92.6 LAB 44410-7(LO 142-424 thou/mcL INC) Normal Platelet Count 164 LAB 73676-9(LO 35.0-45.0 % INC) Normal Hematocrit 36.2 LAB 88040-3(LO 11.0-14.8 % INC) RDW High 16.1 LAB 751-8(LOIN 1.80-7.70 thou/mcL C) High Neutrophil 9.50 Absolute LAB 93017-6(LO 39.0-75.0 % INC) High Neutrophil 80.9 LAB 62888-7(LO 32.0-36.0 gm/dL INC) MCHC Normal 33.5 LAB 62601-6(LO 0.0-2.0 % INC) Normal Basophil 0.2 LAB 704-7(LOIN 0.00-0.20 thou/mcL C) Normal Basophil 0.00 Absolute LAB 718-7(LOIN 12.0-16.0 gm/dL C) Normal Hemoglobin 12.1 LAB 49675-4(LO 0.0-7.0 % INC) Normal Eosinophil 1.1 LAB 711-2(LOIN 0.00-0.70 thou/mcL C) Normal Eosinophil 0.10 Absolute LAB 80558-9(LO 6.2-12.1 FL INC) MPV Normal 8.7 LAB 83987-6(LO 3.80-5.10 million/mcL INC) Red Normal Blood Cell 3.91 Count LAB 64723-1(LO 27.0-34.0 Picograms INC) MCH Normal 31.0 LAB 09758-8(LO 2.0-8.0 % INC) Normal Monocyte 7.3 LAB 742-7(LOIN 0.00-0.90 thou/mcL C) Normal Monocyte 0.90 Absolute Performed By: #### 28440-7 #### [facility], [address] [place] [address]. Observed: 04/21/2018 Status: F Source: BERNADETTE CUMMINGS TRICHOMONAS RAPID 4:04 [facility] SYSTEM REPOSITORY POSITIVE Performed By: #### CD:[id number], CD:[id number] #### [facility] [address], [place] Observed: 04/21/2018 Status: F Source: [facility] CUMMINGS BACTERIAL VAGINOSIS 4:04 [facility] RAPID REPOSITORY POSITIVE Performed By: #### CD:[id number], CD:[id number] #### [facility] [address], [place] GFRAA Collected: 04/21/2018 Status: F Source: BERNADETTE CUMMINGS 4:04 [facility] REPOSITORY TYPE CODE TESTS RESULT OUT OF RANGE REFERENCE UNITS LAB 41979-1(LO mL/min INC) GFR Normal Estimated >60 Result Comment: The MDRD equation has not been validated for those over 70 years, women, patients with serious co-morbid conditions, or with extremes of body size, muscle mass of nutritional status. Performed By: #### 62238-9, 68082-1z5, 53771-3 #### [facility], [address] [place] [address]. GFRBB Collected: 04/21/2018 Status: F Source: BERNADETTE CUMMINGS 4:04 HEALTH SYSTEM REPOSITORY TYPE CODE TESTS RESULT OUT OF RANGE REFERENCE UNITS LAB 89729-4(LO mL/min INC) GFR Normal Estimated Non >60 Performed By: #### 31424-9, 95702-6q6, 23193-1 #### [facility], [address] [place] [address]. BASIC METABOLIC PANEL Collected: 04/21/2018 Status: F Source: BERNADETTE CUMMINGS 4:04 [facility] REPOSITORY TYPE CODE TESTS RESULT OUT OF RANGE REFERENCE UNITS LAB 2160-0(MAYRA 0.66-1.30 mg/dL NC) Normal Creatinine 0.86 LAB 2951-2(MAYRA 136-145 mMol/L NC) Sodium Normal Level 139 LAB 07643-7(LO 70-110 mg/dL INC) Glucose Normal Level 101 LAB 48589-2(LO 8-20 mg/dL INC) BUN Normal 10 LAB 05823-1(LO 6.0-18.0 mMol/L INC) Anion Normal Gap 9.0 Result Comment: PLEASE NOTE:The calculated Anion Gap(AGAP) does not include Potassium. LAB 2823-3(LOINC) 3.6-5.1 mMol/L Normal Potassium Level 4.0 LAB 2028-9(LOINC) 22-32 mMol/L Normal Carbon Dioxide Level 24 LAB 90358-7(LOINC) 8.9-10.3 mg/dL Normal Calcium Total 9.3 LAB 2075-0(LOINC) 98-107 mMol/L Normal Chloride Level 106 Performed By: #### 09279-8, 86347-1g6, 12315-0 #### [facility], [address] [place] [address]. Observed: 04/21/2018 Status: F Source: BERNADETTE HOYTMEL CHLAMYDIA DETECTION BY 4:04 [facility] NAAT REPOSITORY [facility] Microbiology PROCEDURE: Chlamydia Detection by NAAT SOURCE: Cervix BODY SITE: COLLECTED DATE/TIME: 04/21/2018 04:04 EDT RECEIVED DATE/TIME: 04/21/2018 04:04 EDT START DATE/TIME: 04/21/2018 04:04 EDT FREE TEXT SOURCE: CERVIX-Cervix INTERFACED REPORTS Final Report [] Verified Date/Time/Personnel: 04/22/2018 14:14 EDT CONTRIBUTOR_SYSTEM, CO_PN NEGATIVE * C TRACHOMATIS NUCLEIC ACID NOT DETECTED CONTACT LABORATORY FOR RECOMMENDED ADDITIONAL TESTING IF RESULTS ARE INCONSISTENT WITH CLINICAL FINDINGS Performed By: #### CD:[id number] #### [facility] [address], [place] GC Observed: 04/21/2018 Status: F Source: BERNADETTE CUMMINGS DETECTION BY NAAT 4:04 HEALTH SYSTEM REPOSITORY [facility] Microbiology PROCEDURE: GC Detection by NAAT SOURCE: Cervix BODY SITE: COLLECTED DATE/TIME: 04/21/2018 04:04 EDT RECEIVED DATE/TIME: 04/21/2018 04:04 EDT START DATE/TIME: 04/21/2018 04:04 EDT FREE TEXT SOURCE: CERVIX-Cervix INTERFACED REPORTS Final Report [] Verified Date/Time/Personnel: 04/22/2018 14:21 EDT CONTRIBUTOR_SYSTEM, CO_PN NEGATIVE * N.GONORRHOEAE NUCLEIC ACID NOT DETECTED *CONTACT LABORATORY FOR RECOMMENDED ADDITIONAL TESTING IF RESULTS ARE INCONSISTENT WITH CLINICAL FINDINGS * Performed By: #### 93255-3 #### [facility] [address], [place] ED PAT EDU Observed: 04/20/2018 Status: F Source: BERNADETTE HOYTMEL 6:51 AM HEALTH SYSTEM REPOSITORY [place] [id number] Emergency Department Discharge Instructions TASNEEM HENRIQUEZ , Please provide this information to your Primary Care/Specialist Name : TASNEEM HENRIQUEZ Current Date : 04/20/2018 06:51:52 : 1995 12:00 PM Primary Care Physician: Physician, PCP Unknown Diagnosis : Follow-Up Instructions: TASNEEM HENRIQUEZ has been given these follow-up instructions: Laboratory Orders: Name: Status: Urinalysis Manual POCT (CO) Completed Urine Test POCT (CO) Completed Urinalysis with Microscopic Automatic with Reflex Ordered Radiology Orders: None Ordered Diagnostic Tests: None Ordered Procedure(s) and Patient Education(s) : EMERGENCY SERVICES MEDICATION LIST Lista de Medicaciones de los Servicios de Emergencia Name TASNEEM HENRIQUEZ MRN (COL)-[id number] PLEASE READ THE FOLLOWING REGARDING YOUR MEDICATIONS Based on the information available during your visit we have given you the medication instructions below. Continue taking medications you took prior to your visit unless you have been told to change. Pl ease share this information with your own doctor. Carry a list of your medications with you in case of an emergency. Update it when medications are stopped, doses are changed, or new medications (includ ing txot-xwy-uacnfrv products) are added. If you have any questions, check with your doctor. Por la informaci??n disponible joe noble visita, las instrucciones de medicaci??n aparecen debajo. Favor de continuar tomando las medicaciones Ud. jun?? antes de noble visita por lo menos que hay cambios. Favor de compartir esta informaci??n con noble medico. Lleva cleo lista de medicaciones consigo por shlomo de emergenc??a. Actualiza la lista cuando Ud. richar de keiry las medicaciones, si cambian las dosis, o si hay nuevas medicaciones a??adidas (incluyendo medicaciones vendidas sin prescripci??n). Favor de preguntar a noble medico por cualquier ari. THESE ARE THE MEDICATIONS YOU SHOULD BE TAKING MetroNIDAZOLE topical (MetroGel 1% topical gel) 1 Application Topical once a day for 7 Days. Refills: 0. MEDICATIONS GIVEN DURING MEDICAL VISIT None NON-MEDICATION PRESCRIPTION SCHEDULING PHONE NUMBER: MEDICATION CHANGE DETAILS (Not your Final Home Medication List) During the course of your visit, your home medication list was updated with the most current information. The details of those changes are shown below: NEW MEDICATIONS None UPDATED MEDICATIONS None UNCHANGED MEDICATIONS Other Medications MetroNIDAZOLE topical (MetroGel 1% topical gel) 1 Application Topical once a day for 7 Days. Refills: 0. Comment STOP TAKING THESE MEDICATIONS None DO NOT TAKE UNTIL YOU TALK TO YOUR DOCTOR None [place] [address] Emergency Department Discharge Instructions Name: TASNEEM HENRIQUEZ Onesimo Current Date: 04/20/2018 06:51:52 : 1995 12:00 PM Primary Physician: Physician, PCP Unknown We would like to thank you for choosing [facility] for your emergency medical needs. We examined and treated you today on an emergency basis only. This was not a substitute for, or an effort to provide, complete medical care. In most cases, you must let your doctor (or the doctor we referred you to) check you again. Tell your doctor about any new or lasting problems. We cannot rec ognize and treat all injuries or illnesses in one emergency department visit. After you leave, you should follow the directions attached. Instructions for obtaining X-rays: When following up with your doctor, you may need to take copies of your x-rays that were done in the Emergency Department. If you didn't receive these upon your discharge from the emergency department, please call . When the final report becomes available and it is reviewed, the emergency department will attempt to contact you if there are any changes in your instructions. It is importan t that you leave accurate information with us on how to contact you. IF you cannot be contacted, YOU must contact the follow-up doctor that you were assigned to make sure that the final official x-ray r eport does not require a change in your treatment. Instructions for obtaining medical records: If you need a copy of your medical records for follow-up, please contact the Health Information Management Department at . Their office hours are 8 AM- 4:30 PM, Sunday through Sunday. Tommy lemons note: Results are not immediately available. Please allow a minimum of 36 hours for documentation and results. If you were prescribed an antibiotic: Antibiotics are life-saving drugs and they need to be used properly. Your team might change your antibiotic because test results show that a different antibiotic would be better to treat your infection. Like all medications, antibiotics have side effects. Some can be serious. This includes the risk of getting an antibiotic-resistant infection later, which may be difficult to treat. Remember to take yo ur antibiotics as prescribed. If you have any questions please talk to your healthcare team. Seatbelts: There is no doubt that seatbelts save lives. Every day, people without seatbelts have more serious injuries. Have everyone buckle up, using age appropriate seatbelts or car seats, to reduce their risk of injury. Smoking: If you do smoke, we encourage you to stop. Smoking affects all aspects of your health and the health of those around you. Call the [place] [employer] at 5-503-URHN-USA or the [place] [employer] Soci ety at 2-363-EYK-5239 for more information. High blood pressure: Your screening blood pressure today was / . Hypertension (high blood pressure) is blood pressure over 120/80. People with hypertension should contact their primary care provider within 30 days to foll ow up. Check your patient portal for additional blood pressure information. Immunizations: Immunization is a way to protect against deadly infections. Discuss this with your child's telecommunications network planner, or Public Health Department. Your family practice doctor can determine if you need pneumonia or f naz vaccine. The [facility] Department can be reached at . Domestic Violence: If you are a victim of domestic violence (physical, verbal, or emotional), you are not alone. Discuss this with your physician or a friend and call Choices Hotline ( for assistance and support. You are the most important factor in your recovery. Follow the provided instructions carefully. Take your medications as prescribed. Most importantly, see a doctor again as discussed. If you have problems that we have not discussed, call or visit your do ctor right away. If you do not have a primary care physician, we have provided one for you to follow up with. When you call for an appointment, please inform them that you were seen in the emergency dep artment and the date of your visit. If you are unable to reach your doctor and are still experiencing problems, return to the emergency department. For assistance finding a primary care physician, call the Physician Referral Line at . Suicide Hotline: Your mental and emotional well-being is important. If you are in a mental health crisis or are having thoughts of suicide, please call the nationwide suicide hotline, anytime day or night, at 7-145-529-DGYR. Pharmacy Information: Below is a list of 24 hour pharmacies that we are aware of. We suggest that you call the specific pharmacy for their hours before traveling to a location. Hours may vary on holidays. [facility] [address], [place] [phone] [address] [place], [place] [address] [phone] [address] [place], [place] [address] [phone] [address], [place] [phone] [address], [place] [phone] [address], [place] [phone] [place] [address] [phone] Take all medications as directed. If you need prescription assistance, contact the following agencies: ?? Partnership for Prescription Assistance at or www.RedKite Financial Marketsx.org ?? [facility] Rx at or www.SiteBrainsstrx.org ?? www.I Am Smart TechnologyRx.Review Track[employer] is a site with many valuable coupons Patient Education Materials TASNEEM HENRIQUEZ has been given the following patient education materials: <><><><><><><><><><><><><><><><><><><><><><><><><> Patient Visit Summary Signature TASNEEM HENRIQUEZ has been given the following list of patient education materials, prescriptions and follow-up instructions: Sheldon TASNEEM HENRIQUEZ, have received the above patient education materials/instructions and have verbalized understanding: Date Time Patient Signature Date Time Provider Signature DEPART SUMMARY Observed: 04/20/2018 Status: F Source: [facility] 6:51 AM HEALTH SYSTEM REPOSITORY EMERGENCY DEPARTMENT DISCHARGE SUMMARY PATIENT NAME:TASNEEM HENRIQUEZ AGE: 22 Years SEX: Female PHONE:[id number] DOS: 04/20/2018 4:06 AM : 1995 ATTENDING PHYSICIAN:Physician, Emergency PCP: Physician, PCP Unknown CHIEF COMPLAINT: pain with urination Allergies amoxicillin (Hives) Problems Active No Chronic Problems DISCHARGE DIAGNOSIS: DISCHARGE INSTRUCTIONS: ED PHYSICIAN DOCUMENTATION: DISPOSITION: Time of Departure From ER 04/20/2018 06:00 Discharge/Transfer From ER Left without being seen 07 MEDICATION LISTS: CURRENT MEDICATION LIST MetroNIDAZOLE topical (MetroGel 1% topical gel) 1 Application Topical once a day for 7 Days. Refills: 0. MEDICATIONS GIVEN DURING MEDICAL VISIT None LAB RESULTS: LABORATORY TESTS: Pending Lab Result(s): Date Order Results 04/20/2018 06:10 Urinalysis with Microscopic AutomatOrdered Abnormal Lab Result(s): Date Order Results 04/20/2018 05:03 Specific [place] Urine POCT N 1.005 04/20/2018 05:03 pH Urine POCT N 8 04/20/2018 05:03 Urobilinogen Urine POCT N 0 mg/dL RADIOLOGY: FOLLOW UP: ED PAT EDU Observed: 02/21/2018 Status: C Source: [facility] 5:15 PM HEALTH SYSTEM REPOSITORY [place] [id number] Emergency Department Discharge Instructions TASNEEM HENRIQUEZ , Please provide this information to your Primary Care/Specialist Name : TASNEEM HENRIQUEZ Current Date : 02/21/2018 17:15:02 : 1995 12:00 PM Primary Care Physician: Physician, PCP Unknown Diagnosis : Follow-Up Instructions: TASNEEM HENRIQUEZ has been given these follow-up instructions: FOLLOW-UP APPOINTMENTS: Provider: Specialty: Address: Date: If you need help finding a primary care physician call [phone] Follow-up as needed Laboratory Orders: None Ordered Radiology Orders: Name: Status: XR C-Spine 4-5 Views Completed Diagnostic Tests: None Ordered Procedure(s) and Patient Education(s) : Work Release (CO-S) (Custom); Concussion, Adult EMERGENCY SERVICES MEDICATION LIST Lista de Medicaciones de los Servicios de Emergencia Name TASNEEM HENRIQUEZ MRN (COL)-[id number] PLEASE READ THE FOLLOWING REGARDING YOUR MEDICATIONS Based on the information available during your visit we have given you the medication instructions below. Continue taking medications you took prior to your visit unless you have been told to change. Pl ease share this information with your own doctor. Carry a list of your medications with you in case of an emergency. Update it when medications are stopped, doses are changed, or new medications (includ ing owcm-cay-qgqflwc products) are added. If you have any questions, check with your doctor. Por la informaci??n disponible joe noble visita, las instrucciones de medicaci??n aparecen debajo. Favor de continuar tomando las medicaciones Ud. jun?? antes de noble visita por lo menos que hay cambios. Favor de compartir esta informaci??n con noble medico. Lleva cleo lista de medicaciones consigo por shlomo de emergenc??a. Actualiza la lista cuando Ud. richar de keiry las medicaciones, si cambian las dosis, o si hay nuevas medicaciones a??adidas (incluyendo medicaciones vendidas sin prescripci??n). Favor de preguntar a noble medico por cualquier ari. THESE ARE THE MEDICATIONS YOU SHOULD BE TAKING MetroNIDAZOLE topical (MetroGel 1% topical gel) 1 Application Topical once a day for 7 Days. Refills: 0. MEDICATIONS GIVEN DURING MEDICAL VISIT None NON-MEDICATION PRESCRIPTION SCHEDULING PHONE NUMBER: MEDICATION CHANGE DETAILS (Not your Final Home Medication List) During the course of your visit, your home medication list was updated with the most current information. The details of those changes are shown below: NEW MEDICATIONS None UPDATED MEDICATIONS None UNCHANGED MEDICATIONS Other Medications MetroNIDAZOLE topical (MetroGel 1% topical gel) 1 Application Topical once a day for 7 Days. Refills: 0. Comment STOP TAKING THESE MEDICATIONS None DO NOT TAKE UNTIL YOU TALK TO YOUR DOCTOR None [facility] [address] [address] Emergency Department Discharge Instructions Name: TASNEEM HENRIQUEZ Current Date: 02/21/2018 17:15:02 : 1995 12:00 PM Primary Physician: Physician, PCP Unknown We would like to thank you for choosing [facility] for your emergency medical needs. We examined and treated you today on an emergency basis only. This was not a substitute for, or an effort to provide, complete medical care. In most cases, you must let your doctor (or the doctor we referred you to) check you again. Tell your doctor about any new or lasting problems. We cannot rec ognize and treat all injuries or illnesses in one emergency department visit. After you leave, you should follow the directions attached. Instructions for obtaining X-rays: When following up with your doctor, you may need to take copies of your x-rays that were done in the Emergency Department. If you didn't receive these upon your discharge from the emergency department, please call . When the final report becomes available and it is reviewed, the emergency department will attempt to contact you if there are any changes in your instructions. It is importan t that you leave accurate information with us on how to contact you. IF you cannot be contacted, YOU must contact the follow-up doctor that you were assigned to make sure that the final official x-ray r eport does not require a change in your treatment. Instructions for obtaining medical records: If you need a copy of your medical records for follow-up, please contact the Health Information Management Department at . Their office hours are 8 AM- 4:30 PM, Sunday through Sunday. Tommy lemons note: Results are not immediately available. Please allow a minimum of 36 hours for documentation and results. If you were prescribed an antibiotic: Antibiotics are life-saving drugs and they need to be used properly. Your team might change your antibiotic because test results show that a different antibiotic would be better to treat your infection. Like all medications, antibiotics have side effects. Some can be serious. This includes the risk of getting an antibiotic-resistant infection later, which may be difficult to treat. Remember to take yo ur antibiotics as prescribed. If you have any questions please talk to your healthcare team. Seatbelts: There is no doubt that seatbelts save lives. Every day, people without seatbelts have more serious injuries. Have everyone buckle up, using age appropriate seatbelts or car seats, to reduce their risk of injury. Smoking: If you do smoke, we encourage you to stop. Smoking affects all aspects of your health and the health of those around you. Call the [place] [employer] at 4-922-ILGU-USA or the [place] Cancer Soci ety at 5-884-TSP-3781 for more information. High blood pressure: Your screening blood pressure today was 104 mm Hg / . Hypertension (high blood pressure) is blood pressure over 120/80. People with hypertension should contact their primary care provider within 30 day s to follow up. Check your patient portal for additional blood pressure information. Immunizations: Immunization is a way to protect against deadly infections. Discuss this with your child's telecommunications network planner, or Public Health Department. Your family practice doctor can determine if you need pneumonia or f naz vaccine. The [facility] can be reached at . Domestic Violence: If you are a victim of domestic violence (physical, verbal, or emotional), you are not alone. Discuss this with your physician or a friend and call Choices Hotline ( for assistance and support. You are the most important factor in your recovery. Follow the provided instructions carefully. Take your medications as prescribed. Most importantly, see a doctor again as discussed. If you have problems that we have not discussed, call or visit your do ctor right away. If you do not have a primary care physician, we have provided one for you to follow up with. When you call for an appointment, please inform them that you were seen in the emergency dep artment and the date of your visit. If you are unable to reach your doctor and are still experiencing problems, return to the emergency department. For assistance finding a primary care physician, call the Physician Referral Line at . Suicide Hotline: Your mental and emotional well-being is important. If you are in a mental health crisis or are having thoughts of suicide, please call the nationwide suicide hotline, anytime day or night, at 7-383-812-SNHN. Pharmacy Information: Below is a list of 24 hour pharmacies that we are aware of. We suggest that you call the specific pharmacy for their hours before traveling to a location. Hours may vary on holidays. [facility] [address], [place] [phone] [place], [place] [address] [phone] [place], [place] [phone] [address] [place], [place] [phone] [address], [place] [phone] [address], [place] [phone] [address] [place], [place] [phone] Take all medications as directed. If you need prescription assistance, contact the following agencies: ?? [facility] for Prescription Assistance at or www.RedKite Financial Marketsx.org ?? [facility] Best Rx at or www.SiteBrainsstrx.org ?? [employer] Am Smart Technology[employer] is a site with many valuable coupons Patient Education Materials TASNEEM HENRIQUEZ has been given the following patient education materials: [facility] Department [address], [place] [address] Work Release Form This notice verifies that your employee Tasneem Henriquez was seen in this facility on 02/21/18. He/she may return to work on 02/23/18 with the following restrictions: None: x No heavy lifting: (over # pounds) No prolonged standing: Desk Work Only: Other: NOTE: If symptoms continue and the employee is unable to perform the full duties of their job by this date, please advise the employee to return to this facility or make an appointment with the referral physician for further evaluation. ED Physician/Provider Emergency Medicine Concussion, Adult A concussion, or closed-head injury, is a brain injury caused by a direct blow to the head or by a quick and sudden movement (jolt) of the head or neck. Concussions are usually not life-threatening. Kelly n so, the effects of a concussion can be serious. If you have had a concussion before, you are more likely to experience concussion-like symptoms after a direct blow to the head. CAUSES ???Direct blow to the head, such as from running into another player during a soccer game, being hit in a fight, or hitting your head on a hard surface. ???A jolt of the head or neck that causes the brain to move back and forth inside the skull, such as in a car crash. SIGNS AND SYMPTOMS The signs of a concussion can be hard to notice. Early on, they may be missed by you, family members, and health care providers. You may look fine but act or feel differently. Symptoms are usually temporary, but they may last for days, weeks, or even longer. Some symptoms may appear right away while others may not show up for hours or days. Every head injury is different. Symptoms include: ???Mild to moderate headaches that will not go away. ???A feeling of pressure inside your head. ???Having more trouble than usual: ???Learning or remembering things you have heard. ???Answering questions. ???Paying attention or concentrating. ???Organizing daily tasks. ???Making decisions and solving problems. ???Slowness in thinking, acting or reacting, speaking, or reading. ???Getting lost or being easily confused. ???Feeling tired all the time or lacking energy (fatigued). ???Feeling drowsy. ???Sleep disturbances. ???Sleeping more than usual. ???Sleeping less than usual. ???Trouble falling asleep. ???Trouble sleeping (insomnia). ???Loss of balance or feeling lightheaded or dizzy. ???Nausea or vomiting. ???Numbness or tingling. ???Increased sensitivity to: ???Sounds. ???Lights. ???Distractions. ???Vision problems or eyes that tire easily. ???Diminished sense of taste or smell. ???Ringing in the ears. ???Mood changes such as feeling sad or anxious. ???Becoming easily irritated or angry for little or no reason. ???Lack of motivation. ???Seeing or hearing things other people do not see or hear (hallucinations). DIAGNOSIS Your health care provider can usually diagnose a concussion based on a description of your injury and symptoms. He or she will ask whether you passed out (lost consciousness) and whether you are having trouble remembering events that happened right before and during your injury. Your evaluation might include: ???A brain scan to look for signs of injury to the brain. Even if the test shows no injury, you may still have a concussion. ???Blood tests to be sure other problems are not present. TREATMENT ???Concussions are usually treated in an emergency department, in urgent care, or at a clinic. You may need to stay in the hospital overnight for further treatment. ???Tell your health care provider if you are taking any medicines, including prescription medicines, srzv-egb-ueoyabv medicines, and natural remedies. Some medicines, such as blood thinners (anticoagula nts) and aspirin, may increase the chance of complications. Also tell your health care provider whether you have had alcohol or are taking illegal drugs. This information may affect treatment. ???Your health care provider will send you home with important instructions to follow. ???How fast you will recover from a concussion depends on many factors. These factors include how severe your concussion is, what part of your brain was injured, your age, and how healthy you were before the concussion. ???Most people with mild injuries recover fully. Recovery can take time. In general, recovery is slower in older persons. Also, persons who have had a concussion in the past or have other medical proble ms may find that it takes longer to recover from their current injury. HOME CARE INSTRUCTIONS General Instructions ???Carefully follow the directions your health care provider gave you. ???Only take hmhj-doo-ealstid or prescription medicines for pain, discomfort, or fever as directed by your health care provider. ???Take only those medicines that your health care provider has approved. ???Do not drink alcohol until your health care provider says you are well enough to do so. Alcohol and certain other drugs may slow your recovery and can put you at risk of further injury. ???If it is harder than usual to remember things, write them down. ???If you are easily distracted, try to do one thing at a time. For example, do not try to watch TV while fixing dinner. ???Talk with family members or close friends when making important decisions. ???Keep all follow-up appointments. Repeated evaluation of your symptoms is recommended for your recovery. ???Watch your symptoms and tell others to do the same. Complications sometimes occur after a concussion. Older adults with a brain injury may have a higher risk of serious complications, such as a blood clot on the brain. ???Tell your teachers, school nurse, school counselor, hitting coach, it trainer, or long term care social worker about your injury, symptoms, and restrictions. Tell them about what you can or cannot do. They should watch for: ???Increased problems with attention or concentration. ???Increased difficulty remembering or learning new information. ???Increased time needed to complete tasks or assignments. ???Increased irritability or decreased ability to cope with stress. ???Increased symptoms. ???Rest. Rest helps the brain to heal. Make sure you: ???Get plenty of sleep at night. Avoid staying up late at night. ???Keep the same bedtime hours on weekends and weekdays. ???Rest during the day. Take daytime naps or rest breaks when you feel tired. ???Limit activities that require a lot of thought or concentration. These include: ???Doing homework or job-related work. ???Watching TV. ???Working on the computer. ???Avoid any situation where there is potential for another head injury (football, hockey, soccer, basketball, martial arts, downhill snow sports and horseback riding). Your condition will get worse kelly ry time you experience a concussion. You should avoid these activities until you are evaluated by the appropriate follow-up health care providers. Returning To Your Regular Activities You will need to return to your normal activities slowly, not all at once. You must give your body and brain enough time for recovery. ???Do not return to sports or other athletic activities until your health care provider tells you it is safe to do so. ???Ask your health care provider when you can drive, ride a bicycle, or operate heavy machinery. Your ability to react may be slower after a brain injury. Never do these activities if you are dizzy. ???Ask your health care provider about when you can return to work or school. Preventing Another Concussion It is very important to avoid another brain injury, especially before you have recovered. In rare cases, another injury can lead to permanent brain damage, brain swelling, or . The risk of this is greatest during the first 7?10 days after a head injury. Avoid injuries by: ???Wearing a seat belt when riding in a car. ???Drinking alcohol only in moderation. ???Wearing a helmet when biking, skiing, skateboarding, skating, or doing similar activities. ???Avoiding activities that could lead to a second concussion, such as contact or recreational sports, until your health care provider says it is okay. ???Taking safety measures in your home. ???Remove clutter and tripping hazards from floors and stairways. ???Use grab bars in bathrooms and handrails by stairs. ???Place non-slip mats on floors and in bathtubs. ???Improve lighting in dim areas. SEEK MEDICAL CARE IF: ???You have increased problems paying attention or concentrating. ???You have increased difficulty remembering or learning new information. ???You need more time to complete tasks or assignments than before. ???You have increased irritability or decreased ability to cope with stress. ???You have more symptoms than before. Seek medical care if you have any of the following symptoms for more than 2 weeks after your injury: ???Lasting (chronic) headaches. ???Dizziness or balance problems. ???Nausea. ???Vision problems. ???Increased sensitivity to noise or light. ???Depression or mood swings. ???Anxiety or irritability. ???Memory problems. ???Difficulty concentrating or paying attention. ???Sleep problems. ???Feeling tired all the time. SEEK IMMEDIATE MEDICAL CARE IF: ???You have severe or worsening headaches. These may be a sign of a blood clot in the brain. ???You have weakness (even if only in one hand, leg, or part of the face). ???You have numbness. ???You have decreased coordination. ???You vomit repeatedly. ???You have increased sleepiness. ???One pupil is larger than the other. ???You have convulsions. ???You have slurred speech. ???You have increased confusion. This may be a sign of a blood clot in the brain. ???You have increased restlessness, agitation, or irritability. ???You are unable to recognize people or places. ???You have neck pain. ???It is difficult to wake you up. ???You have unusual behavior changes. ???You lose consciousness. MAKE SURE YOU: ???Understand these instructions. ???Will watch your condition. ???Will get help right away if you are not doing well or get worse. This information is not intended to replace advice given to you by your health care provider. Make sure you discuss any questions you have with your health care provider. Document Released: 11/02/2004 Document Revised: 09/03/2015 Document Reviewed: 03/05/2014 [employer] Interactive Patient Education ?2015 [employer] <><><><><><><><><><><><><><><><><><><><><><><><><> Patient Visit Summary Signature TASNEEM HENRIQUEZ has been given the following list of patient education materials, prescriptions and follow-up instructions: I TASNEEM HENRIQUEZ, have received the above patient education materials/instructions and have verbalized understanding: Date Time Patient Signature Date Time Provider Signature DEPART SUMMARY Observed: 02/21/2018 Status: C Source: [facility] 5:15 PM HEALTH SYSTEM REPOSITORY EMERGENCY DEPARTMENT DISCHARGE SUMMARY PATIENT NAME:TASNEEM HENRIQUEZ AGE: 22 Years SEX: Female PHONE:[id number] DOS: 02/21/2018 4:25 PM : 1995 ATTENDING PHYSICIAN:Audra Chang DO PCP: Physician, PCP Unknown CHIEF COMPLAINT: Head injury, Dizziness/Blurred vision Allergies amoxicillin (Hives) Problems Active No Chronic Problems DISCHARGE DIAGNOSIS: DISCHARGE INSTRUCTIONS: Work Release (CO-S) (Custom); Concussion, Adult ED PHYSICIAN DOCUMENTATION: DISPOSITION: Time of Departure From ER 02/21/2018 17:14 Discharge/Transfer From ER Home 01 MEDICATION LISTS: CURRENT MEDICATION LIST MetroNIDAZOLE topical (MetroGel 1% topical gel) 1 Application Topical once a day for 7 Days. Refills: 0. MEDICATIONS GIVEN DURING MEDICAL VISIT None LAB RESULTS: RADIOLOGY: RADIOLOGY RESULT(S) (Please contact Medical Records office for further information): 02/21/2018 16:41 XR C-Spine 4-5 Views EXAM: XR C-Spine 4-5 Views DATE: 02/21/2018 4:50 PMCOMPARISON: None INDICATION: Pain after fall last night. FINDINGS: Normal alignment of the cervical spine. Vertebral body heights are maintained. No acu te fractures are identified. Intervertebral disc spaces are preserved.No significant foraminal stenosis on oblique views. Prevertebral soft tissues are within normal limits. IMPRESSION: Negative for acu te bony abnormality.Bernadette Cummings thanks you for the opportunity to care for your patient. Workstation ID: [id number] FOLLOW UP: FOLLOW-UP APPOINTMENTS: Provider: Specialty: Address: Date: If you need help finding a primary care physician call [phone] Follow-up as needed XR C-SPINE 4-5 VIEWS Observed: 02/21/2018 Status: F Source: [facility] 4:50 PM [facility]ALTH SYSTEM REPOSITORY EXAM: XR C-Spine 4-5 Views DATE: 02/21/2018 4:50 PM COMPARISON: None INDICATION: Pain after fall last night. FINDINGS: Normal alignment of the cervical spine. Vertebral body heights are maintained. No acute fractures are identified. Intervertebral disc spaces are preserved.No significant foraminal stenosis on oblique views. Prevertebral soft tissues are within normal limits. IMPRESSION: Negative for acute bony abnormality. [place] thanks you for the opportunity to care for your patient. Workstation ID: [id number] FINAL REPORT Dictated By: Devan Hines MD 02/21/2018 16:51 Assigned Physician: Devan Hines MD Reviewed and Electronically Signed By: Devan Hines MD 02/21/2018 16:51 Transcribed by: PATRICIA 02/21/2018 16:51 Technologist: JESSICA ED PHYSICIAN NOTES Observed: 02/21/2018 Status: F Source: [facility] 4:35 PM HEALTH SYSTEM REPOSITORY Chief Complaint Head injury, Dizziness/Blurred vision ED Assigned Provider/Time Time Seen: Ivan Gates / 02/21/2018 16:35 History of Present Illness I Introduced myself as a mid-level provider. My Supervising Attending is Dr. Chang 22 year old female presents with a head injury which occurred last night. Patient reports she tripped ad home and hit her head onto a table. No loss of consciousness. Patient reports she has since been experiencing dizziness, stating the room seems to be spinning around her. She initially had blurred vision in both eyes for several hours which has now resolved. She reports neck pain which worsens with movement. She has been treating symptoms with ibuprofen at home. Patient was previously evaluated at urgent care and referred here for an x-ray. No headache or vomiting. Patient does not feel any more tired than usual. No previous surgeries. Patient reports she is speaking and ambulating normally. I have reviewed and agree with the nursing notes. REVIEW OF SYSTEMS: Constitutional: [No feversor chills] Eyes: [+ blurred vision] ENMT: [No sore throat, runny nose, stuffy nose] Cardiovascular: [No chest painor palpitations] Respiratory: [No coughor difficulty breathing] Gastrointestinal: [No abdominal pain, nausea, vomiting, diarrhea] Genitourinary: [No pain or burning with urination] Musculoskeletal: [+ neck pain, No pain in extremities] Integumentary: [No rashes] Neurological: [No headache, + dizziness, no numbness, tingling, or weakness] Hematologic: [No bruising] All other systems reviewed are negative PHYSICAL EXAM: 02/21/18 16:39:00 BP: 104/68 Temperature: 98.3 (02/21 16:39) Pulse: 90 (02/21 16:29) Respiration: 16 (02/21 16:29) BP: 104/68 (02/21 16:39) Pulse Ox: 100 (02/21 16:29) Oxygen Delivery: Room air (02/21 16:29) Pain Score: 2 (02/21 16:26) PULSE OX INTERPRETATION: The Pulse ox is [100], which is [normal] Constitutional: [Alert, Well appearing, Well nourished, in no acute distress] Head: [Normocephalic, Atraumatic] Eyes: [PERRL, no scleral icterus] Nose: [Normal in appearance, no rhinorrhea] Mouth: [Moist mucous membranes] Neck: [Supple, trachea midline] Cardiovascular: [Regular rate and rhythm, no murmurs, rubs, gallops] Respiratory: [Clear to auscultation bilaterally without wheezes, rhonchi, rales. Equal air exchange without accessory muscle use] Gastrointestinal: [Non-distended, non-tender. Soft without rigidity] Genitourinary: [Deferred] Skin: [Normal for age, no rash or lesions] Musculoskeletal: [mild midline c-spine tenderness, No edema, normal peripheral perfusion and pulses] Neurologic: [Awake, alert, answers questions appropriately without slurred speech, no focal deficits, no ataxia per finger to nose testing] DIFFERENTIAL DIAGNOSIS: [ ] MEDICAL DECISION MAKING: [Patient presents to the emergency department after a head injury she tripped and fell yesterday struck the right parietal scalp no evidence of trauma on exam no LOC CT not indicated per [place] CT head criteria states initially she had blurred vision after the injury but does not use any of the symptoms currently my exam here is completely benign except for some mild nec k x-ray is negative will treat with concussion protocol] [employer] SUPERINTENDENT INTERPRETATION: Rhythm strip interpreted by [ ] shows [ ] rhythm, rate of [ ], no ectopy. PREVIOUS RECORDS REVIEWED: [ Yes] PROCEDURES: CRITICAL CARE TIME: My attention was given to the direct care of this patient for [ ] minutes of critical care time due to (include reason) [ ]. The critical care treatment and management interventions I performed included [ ] Time spent teaching and performing procedures billed separately is not included. This time is exclusively billable from procedures. ER Progress Note PROGRESS NOTES: [ ] DISPOSITION: Condition: [Stable]. Disposition:DischargedDate/Time: [ ] to Home Prescriptions:NONE Limitations: [Limited activity, Limited work, No school, No sports, No heavy lifting.] Patient Education: No patient education charted Follow up with: No follow-up charted Counseled: [Patient]. FINAL DIAGNOSIS: [ Acute cervical strain: Acute head injury acute concussion] SCRIBE ATTESTATION: I, [Teddy Waterman ], am serving as a scribe to document services personally performed by [Ivan Montero] based on the patient's responses to questions from the provider and t he provider's statement to me. This chart accurately reflects the work and decisions made by me. Problem List/Past Medical History Ongoing No chronic problems Historical No qualifying data Medications Home No active home medications ED Administered Medications Prescriptions No active Prescriptions Allergies amoxicillin (Hives) Social History Alcohol - Low Risk Current Substance Abuse - Denies Substance Abuse Tobacco No qualifying data available. Diagnostic Results No lab results available for this visit. IMAGING RESULTS: Emergency Physician Interpretation: Radiologist Diagnostics Interpretation: Interpretation No qualifying data available. ORDERS PLACED: Xray XR C-Spine 4-5 Views Ivan Gates February 21, 2018 16:39 Ordered US PELVIC TRANSABDOMINAL Observed: 10/12/2017 Status: F [facility]05 [facility] ONE REPOSITORY Order Comment: Reason for exam?:incomplete ab Injury/Trauma or Illness?:Illness/Other How long have you had these symptoms (acute/chronic)?:Unknown History of cancer?:denies Surgeries, chemotherapy, or radiation?:denies Type of Exam?:Unknown Additional signs and symptoms?: CLINICAL HISTORY: Incomplete . EXAMINATION: PELVIC ULTRASOUND: 10/12/2017. COMPARISON: Pelvic ultrasound 09/18/2017 from [facility]. TECHNIQUE: Static images from real-time examination using [...] of free fluid within the posterior cul-de-sac. KKV/hff Workstation ID: [id number] Dictated by: SHEKHAR GARNETT on SunOct 12, 2017 4:52:44 AM EST Transcribed by: AUDREY WISE on SunOct 12, 2017 5:34:04 AM EST Finalized by: SHEKHAR GARNETT on SunOct 12, 2017 5:37:39 AM EST ED [facility] Observed: 09/29/2017 Status: F Source: [facility] 9:42 PM HEALTH SYSTEM REPOSITORY [place] [id number] Emergency Department Discharge Instructions TASNEEM HENRIQUEZ , Please provide this information to your Primary Care/Specialist Name : TASNEEM HENRIQUEZ Current Date : 09/29/2017 21:42:30 : 1995 12:00 PM Primary Care Physician: Physician, PCP Unknown Diagnosis : Follow-Up Instructions: TASNEEM HENRIQUEZ has been given these follow-up instructions: Provider: Specialty: Address: Date: PCP Unknown Physician Family Practice Follow-up as needed Provider: Specialty: Address: Date: [employer] 3 to 4 days Comment: Call for an Appointment Provider: Specialty: Address: Date: Return to Emergency Department Follow-up as needed Comment: Return to the ER immediately for any change or worsening of symptoms especially accompanied by abdominal pain, heavy vaginal bleeding where she is filling more than one pad per hour, nausea wi th vomiting blood or black stools, chest pain, shortness breath, additional near syncopal episodes or any symptoms that appear to be significantly worsening instead of improving. Laboratory Orders: Name: Status: Glucose POCT for Docking Process Completed Glucose POCT (Uploaded) Completed Urine Test POCT (CO) Completed Urinalysis Manual POCT (CO) Completed Basic Metabolic Panel Completed CBC with Differential Completed HCG Quantitative Completed Urinalysis with Microscopic Automatic Completed GFRaa Completed GFRbb Completed Urinalysis Microscopic Completed Radiology Orders: Name: Status: US OB Less 14 Wks Sgl/ Gest Completed US Transvaginal Completed Diagnostic Tests: Name: Status: ECG 12 Lead Completed Procedure(s) and Patient Education(s) : Stefan's work release. ([id number]); Miscarriage; Near-Syncope EMERGENCY SERVICES MEDICATION LIST Lista de Medicaciones de los [facility] Name TASNEEM HENRIQUEZ MRN (COL)-[id number] PLEASE READ THE FOLLOWING REGARDING YOUR MEDICATIONS Based on the information available during your visit we have given you the medication instructions below. Continue taking medications you took prior to your visit unless you have been told to change. Pl ease share this information with your own doctor. Carry a list of your medications with you in case of an emergency. Update it when medications are stopped, doses are changed, or new medications (includ ing ahvg-bam-zuhshcv products) are added. If you have any questions, check with your doctor. Por la informaci??n disponible joe noble visita, las instrucciones de medicaci??n aparecen debajo. Favor de continuar tomando las medicaciones Ud. jun?? antes de noble visita por lo menos que hay cambios. Favor de compartir esta informaci??n con noble medico. Lleva cleo lista de medicaciones consigo por shlomo de emergenc??a. Actualiza la lista cuando Ud. richar de keiry las medicaciones, si cambian las dosis, o si hay nuevas medicaciones a??adidas (incluyendo medicaciones vendidas sin prescripci??n). Favor de preguntar a noble medico por cualquier ari. THESE ARE THE MEDICATIONS YOU SHOULD BE TAKING MetroNIDAZOLE topical (MetroGel 1% topical gel) 1 Application Topical once a day for 7 Days. Refills: 0. MEDICATIONS GIVEN DURING MEDICAL VISIT None NON-MEDICATION PRESCRIPTION SCHEDULING PHONE NUMBER: MEDICATION CHANGE DETAILS (Not your Final Home Medication List) During the course of your visit, your home medication list was updated with the most current information. The details of those changes are shown below: NEW MEDICATIONS None UPDATED MEDICATIONS None UNCHANGED MEDICATIONS Other Medications MetroNIDAZOLE topical (MetroGel 1% topical gel) 1 Application Topical once a day for 7 Days. Refills: 0. Comment STOP TAKING THESE MEDICATIONS None DO NOT TAKE UNTIL YOU TALK TO YOUR DOCTOR None [place] [id number] Emergency Department Discharge Instructions Name: TASNEME HENRIQUEZ Current Date: 09/29/2017 21:42:30 : 1995 12:00 PM Primary Physician: Physician, PCP Unknown We would like to thank you for choosing [facility] for your emergency medical needs. We examined and treated you today on an emergency basis only. This was not a substitute for, or an effort to provide, complete medical care. In most cases, you must let your doctor (or the doctor we referred you to) check you again. Tell your doctor about any new or lasting problems. We cannot rec ognize and treat all injuries or illnesses in one emergency department visit. After you leave, you should follow the directions attached. Instructions for obtaining X-rays: When following up with your doctor, you may need to take copies of your x-rays that were done in the Emergency Department. If you didn't receive these upon your discharge from the emergency department, please call . When the final report becomes available and it is reviewed, the emergency department will attempt to contact you if there are any changes in your instructions. It is importan t that you leave accurate information with us on how to contact you. IF you cannot be contacted, YOU must contact the follow-up doctor that you were assigned to make sure that the final official x-ray r eport does not require a change in your treatment. Instructions for obtaining medical records: If you need a copy of your medical records for follow-up, please contact the Health Information Management Department at . Their office hours are 8 AM- 4:30 PM, Sunday through Sunday. Tommy lemons note: Results are not immediately available. Please allow a minimum of 36 hours for documentation and results. If you were prescribed an antibiotic: Antibiotics are life-saving drugs and they need to be used properly. Your team might change your antibiotic because test results show that a different antibiotic would be better to treat your infection. Like all medications, antibiotics have side effects. Some can be serious. This includes the risk of getting an antibiotic-resistant infection later, which may be difficult to treat. Remember to take yo ur antibiotics as prescribed. If you have any questions please talk to your healthcare team. Seatbelts: There is no doubt that seatbelts save lives. Every day, people without seatbelts have more serious injuries. Have everyone buckle up, using age appropriate seatbelts or car seats, to reduce their risk of injury. Smoking: If you do smoke, we encourage you to stop. Smoking affects all aspects of your health and the health of those around you. Call the [place] [employer] at 6-837-NJNJ-USA or the [place] [employer] at 8-295-USH-1868 for more information. High blood pressure: Your screening blood pressure today was 108 mm Hg / . Hypertension (high blood pressure) is blood pressure over 120/80. People with hypertension should contact their primary care provider within 30 day s to follow up. Check your patient portal for additional blood pressure information. Immunizations: Immunization is a way to protect against deadly infections. Discuss this with your child's telecommunications network planner, or Public Health Department. Your family practice doctor can determine if you need pneumonia or f naz vaccine. The [facility] can be reached at . Domestic Violence: If you are a victim of domestic violence (physical, verbal, or emotional), you are not alone. Discuss this with your physician or a friend and call Choices Hotline ( for assistance and support. You are the most important factor in your recovery. Follow the provided instructions carefully. Take your medications as prescribed. Most importantly, see a doctor again as discussed. If you have problems that we have not discussed, call or visit your do ctor right away. If you do not have a primary care physician, we have provided one for you to follow up with. When you call for an appointment, please inform them that you were seen in the emergency dep artment and the date of your visit. If you are unable to reach your doctor and are still experiencing problems, return to the emergency department. For assistance finding a primary care physician, call the Physician Referral Line at . Suicide Hotline: Your mental and emotional well-being is important. If you are in a mental health crisis or are having thoughts of suicide, please call the nationwide suicide hotline, anytime day or night, at 8-982-106-RGCV. Pharmacy Information: Below is a list of 24 hour pharmacies that we are aware of. We suggest that you call the specific pharmacy for their hours before traveling to a location. Hours may vary on holidays. [facility] [id number], [place] [phone] [address], [place] [address] [phone] [address], [place] [phone] [address], [place] [phone] [address], [place] [phone] [address], [place] [phone] [place] [address] [phone] Take all medications as directed. If you need prescription assistance, contact the following agencies: ?? Partnership for Prescription Assistance at or www.pparx.org ?? [place] at or www.[place]iobestrx.org ?? 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 Patient is excused from work on 09/29/17 and 09/30/17. ED Physician/Provider Obstetrics and Gynecology Miscarriage A miscarriage is the sudden loss of an unborn baby (fetus) before the 20th week of . Most miscarriages happen in the first 3 months of . Sometimes, it happens before a woman even knows she is . A miscarriage is also called a spontaneous miscarriage or early loss. Having a miscarriage can be an emotional experience. Talk with your caregiver about any questions yo u may have about miscarrying, the grieving process, and your future plans. CAUSES ???Problems with the chromosomes that make it impossible for the baby to develop normally. Problems with the baby's genes or chromosomes are most often the result of errors that occur, by chance, as the embryo divides and grows. The problems are not inherited from the parents. ???Infection of the cervix or uterus. ?Hormone problems. ?Problems with the cervix, such as having an incompetent cervix. This is when the tissue in the cervix is not strong enough to hold the . ?Problems with the uterus, such as an abnormally shaped uterus, uterine fibroids, or congenital abnormalities. ?Certain medical conditions. ?Smoking, drinking alcohol, or taking illegal drugs. ?Trauma. ? Often, the cause of a miscarriage is unknown. SYMPTOMS ???Vaginal bleeding or spotting, with or without cramps or pain. ???Pain or cramping in the abdomen or lower back. ???Passing fluid, tissue, or blood clots from the vagina. DIAGNOSIS Your caregiver will perform a physical exam. You may also have an ultrasound to confirm the miscarriage. Blood or urine tests may also be ordered. TREATMENT ???Sometimes, treatment is not necessary if you naturally pass all the tissue that was in the uterus. If some of the fetus or placenta remains in the body (incomplete miscarriage), tissue left beh ind may become infected and must be removed. Usually, a dilation and curettage (D and C) procedure is performed. During a D and C procedure, the cervix is widened (dilated) and any remaining or pl acental tissue is gently removed from the uterus. ???Antibiotic medicines are prescribed if there is an infection. Other medicines may be given to reduce the size of the uterus (contract) if there is a lot of bleeding. ???If you have Rh negative blood and your baby was Rh positive, you will need a Rh immunoglobulin shot. This shot will protect any future baby from having Rh blood problems in future pregnancies. HOME CARE INSTRUCTIONS ???Your caregiver may order bed rest or may allow you to continue light activity. Resume activity as directed by your caregiver. ???Have someone help with home and family responsibilities during this time. ?Keep track of the number of sanitary pads you use each day and how soaked (saturated) they are. Write down this information. ?Do not use tampons. Do not douche or have sexual intercourse until approved by your caregiver. ?Only take ecor-rih-ehacfec or prescription medicines for pain or discomfort as directed by your caregiver. ?Do not take aspirin. Aspirin can cause bleeding. ?Keep all follow-up appointments with your caregiver. ?If you or your partner have problems with grieving, talk to your caregiver or seek counseling to help cope with the loss. Allow enough time to grieve before trying to get again. ? SEEK IMMEDIATE MEDICAL CARE IF: ???You have severe cramps or pain in your back or abdomen. ???You have a fever. ???You pass large blood clots (walnut-sized or larger) or?tissue from your vagina. Save any tissue for your caregiver to inspect. ?Your bleeding increases. ?You have a thick, bad-smelling vaginal discharge. ???You become lightheaded, weak, or you faint. ?You have chills. ? MAKE SURE YOU: ???Understand these instructions. ???Will watch your condition. ???Will get help right away if you are not doing well or get worse. This information is not intended to replace advice given to you by your health care provider. Make sure you discuss any questions you have with your health care provider. Document Released: 02/06/2002 Document Revised: 12/08/2013 Document Reviewed: 10/01/2012 [employer] Interactive Patient Education ?2016 [employer] Near-Syncope Near-syncope (commonly known as near fainting) is sudden weakness, dizziness, or feeling like you might pass out. During an episode of near- syncope, you may also develop pale skin, have tunnel vision, o r feel sick to your stomach (nauseous). Near-syncope may occur when getting up after sitting or while standing for a long time. It is caused by a sudden decrease in blood flow to the brain. This decreas e can result from various causes or triggers, most of which are not serious. However, because near-syncope can sometimes be a sign of something serious, a medical evaluation is required. The specific cause is often not determined. HOME CARE INSTRUCTIONS Monitor your condition for any changes. The following actions may help to alleviate any discomfort you are experiencing: ???Have someone stay with you until you feel stable. ???Lie down right away and prop your feet up if you start feeling like you might faint. Breathe deeply and steadily. Wait until all the symptoms have passed. Most of these episodes last only a few minut es. You may feel tired for several hours. ?Drink enough fluids to keep your urine clear or pale yellow. ?If you are taking blood pressure or heart medicine, get up slowly when seated or lying down. Take several minutes to sit and then stand. This can reduce dizziness. ???Follow up with your health care provider as directed.? SEEK IMMEDIATE MEDICAL CARE IF: ???You have a severe headache. ?You have unusual pain in the chest, abdomen, or back. ?You are bleeding from the mouth or rectum, or you have black or tarry stool. ?You have an irregular or very fast heartbeat. ?You have repeated fainting or have seizure-like jerking during an episode. ?You faint when sitting or lying down. ?You have confusion. ?You have difficulty walking. ?You have severe weakness. ?You have vision problems. ? MAKE SURE YOU: ???Understand these instructions. ???Will watch your condition. ???Will get help right away if you are not doing well or get worse. This information is not intended to replace advice given to you by your health care provider. Make sure you discuss any questions you have with your health care provider. Document Released: 08/13/2006 Document Revised: 08/18/2014 Document Reviewed: 01/16/2014 [employer] Interactive Patient Education ?2016 [employer] <><><><><><><><><><><><><><><><><><><><><><><><><> Patient Visit Summary Signature TASNEEM HENRIQUEZ has been given the following list of patient education materials, prescriptions and follow-up instructions: I, TASNEEM HENRIQUEZ, have received the above patient education materials/instructions and have verbalized understanding: Date Time Patient Signature Date Time Provider Signature DEPART SUMMARY Observed: 09/29/2017 Status: F Source: [facility] 9:42 PM HEALTH SYSTEM REPOSITORY EMERGENCY DEPARTMENT DISCHARGE SUMMARY PATIENT NAME:TASNEEM HENRIQUEZ MRN: ([id number] AGE: 22 Years SEX: Female PHONE:[phone] DOS: 09/29/2017 5:19 PM : 1995 ATTENDING PHYSICIAN:Laurent Goodwin MD PCP: Physician, PCP Unknown CHIEF COMPLAINT: Near Syncope Allergies amoxicillin (Hives) Problems Active No Chronic Problems DISCHARGE DIAGNOSIS: DISCHARGE INSTRUCTIONS: Stefan's work release. ([id number]); Miscarriage; Near-Syncope HISTORY OF PRESENT ILLNESS: I have introduced myself as the PA and informed the patient of the supervising/ collaborating physician who is available upon request. I have discussed the case with the ED physician who participated in the decisions regarding any therapeutic interventions. Physician: Dr. Goodwin CARPENTRY SUPERVISOR : Dr. Georges--states she had an ultrasound done at 6 weeks but no heartbeat was found and has been having decreasing hCG Quant that they have been following although is unsure as to whether or not she has a viable that is intrauterine . 22-year-old white female with history of tachycardia in approximately 8 weeks gravid with first day last mental cycle being July 29. Patient presents today via private auto from work for evaluation of near syncopal episode. Patient states earlier today around 4:30 PM she was standing at her place of employment when she had onset of f eeling hot and cold and clammy with seeing black spots in her vision, ringing in her ears and voices surrounding faraway, feeling is that she was going to pass out. She did have nausea with this episode although did not vomit. Patient states she was able to sit down and within several minutes had resolution of symptoms stating currently she feels okay. She did not have any loss of consciousness during this episode and denies hitting her head. Patient states she only had one bowl of cereal this morning stating she thought that she might not have a did not which could've caused her symptoms. She has h ad near syncopal episodes in the past when she is really hot although states she was not hot or exerting herself with her symptoms began today. She did not have any associated chest pain, shortness of b reath or sensation of palpitations. She has not had any abdominal pain or vaginal bleeding/discharge throughout this or today. She has no concern for STDs. She denies any burning with urinatio n, increased urinary frequency or change in urine color or smell. She has had nausea throughout the although states she is still eating like normal with no active vomiting or diarrhea. No associated fever, chills, nausea or vomiting. No chest pain or shortness of breath. No abdominal pain. No headache, visual change, slurred speech, one-sided weakness or altered mental status. She is accompanied by mother who states she has been acting like normal self. Has not taken anything or been given anything aside from a glass of water prior to arrival today. MEDICAL DECISION MAKING: PROCEDURES: Free Text Sentence DISPOSITION: Time of Departure From ER 09/29/2017 21:42 Discharge/Transfer From ER Home 01 MEDICATION LISTS: CURRENT MEDICATION LIST MetroNIDAZOLE topical (MetroGel 1% topical gel) 1 Application Topical once a day for 7 Days. Refills: 0. MEDICATIONS GIVEN DURING MEDICAL VISIT None LAB RESULTS: LABORATORY TESTS: Abnormal Lab Result(s): Date Order Results 09/29/2017 17:28 Glucose POCT-LAB H 123 mg/dL 09/29/2017 17:41 Specific [place] Urine POCT N 1.020 09/29/2017 17:41 pH Urine POCT N 5 09/29/2017 17:41 Urobilinogen Urine POCT N 0 mg/dL 09/29/2017 18:53 Red Blood Cell Count L 3.71 million/mcL 09/29/2017 18:53 Neutrophil Absolute H 8.20 thou/mcL 09/29/2017 18:53 Neutrophil H 81.3 % 09/29/2017 18:53 Lymphocyte L 12.7 % 09/29/2017 18:53 BUN L 7 mg/dL 09/29/2017 18:53 Creatinine L 0.55 mg/dL 09/29/2017 19:40 Appearance Urine A HAZY 09/29/2017 19:40 Glucose Urine A 50MG/DL 09/29/2017 19:40 Protein Urine A 30MG/DL 09/29/2017 19:40 Leukocyte Esterase Urine A 250/UL 09/29/2017 19:40 WBC Urine H 23 /hpf 09/29/2017 19:40 RBC Urine H 7 /hpf 09/29/2017 19:40 Squamous Epithelial Cells Urine A MANY 09/29/2017 19:40 Mucous Urine A OCCASSNL RADIOLOGY: RADIOLOGY RESULT(S) (Please contact Medical Records office for further information): 09/29/2017 18:57 US OB Less 14 Wks Sgl/1st Gest US OB Less 14 Wks Sgl/1st Gest, US , TRANSABDOMINAL AND ENDOVAGINAL TECHNIQUEDATE OF EXAM: 09/29/2017 7:22 PMHISTORY: Pelvic Pain, Female. Vaginal bleeding. Syncope. Positive test. COMP ARISON: NONE FINDINGS: There is an intrauterine gestational sac. There is some debris in the gestational sac. There is a tiny hypoechoic area adjacent to the gestational sac compatible with subchorionic hemorrhage. Amniotic fluid volume and placenta are not assessed.Decompressed urinary bladder. Small pelvic free fluid.Left ovary not visualized. No left adnexal mass shown. Right ovary measures 4.3 x 2 .9 x 2.9 cm and contains a follicle or corpus luteal cyst of measuring approximately 2 cm.IMPRESSION: 1. There is an intrauterine gestational sac which contains debris but no pole or yol k sac. EGA of approximately 6 weeks 6 days. Findings are compatible with abnormal .2. No adnexal mass.Findings provided to the referring service in the emergency department following dictation on 09/29/2017 7:33 PM.Bernadette Cummings thanks you for the opportunity to care for your patient. Workstation ID: [id number] 09/29/2017 18:57 US Transvaginal US OB Less 14 Wks Sgl/1st Gest, US , TRANSABDOMINAL AND ENDOVAGINAL TECHNIQUEDATE OF EXAM: 09/29/2017 7:22 PMHISTORY: Pelvic Pain, Female. Vaginal bleeding. Syncope. Positive test. COMP ARISON: NONE FINDINGS: There is an intrauterine gestational sac. There is some debris in the gestational sac. There is a tiny hypoechoic area adjacent to the gestational sac compatible with subchorionic hemorrhage. Amniotic fluid volume and placenta are not assessed.Decompressed urinary bladder. Small pelvic free fluid.Left ovary not visualized. No left adnexal mass shown. Right ovary measures 4.3 x 2 .9 x 2.9 cm and contains a follicle or corpus luteal cyst of measuring approximately 2 cm.IMPRESSION: 1. There is an intrauterine gestational sac which contains debris but no pole or yol k sac. EGA of approximately 6 weeks 6 days. Findings are compatible with abnormal .2. No adnexal mass.Findings provided to the referring service in the emergency department following dictation on 09/29/2017 7:33 PM.Bernadette Cummings thanks you for the opportunity to care for your patient. Workstation ID: [id number] FOLLOW UP: With: Address: When: CARPENTRY SUPERVISOR Within 3 to 4 days Comments: Call for an Appointment With: Address: When: Return to Emergency Department Within Follow-up as needed Comments: Return to the ER immediately for any change or worsening of symptoms especially accompanied by abdominal pain, heavy vaginal bleeding where she is filling more than one pad per hour, nausea with vomitin g blood or black stools, chest pain, shortness breath, additional near syncopal episodes or any symptoms that appear to be significantly worsening instead of improving. With: Address: When: PCP Unknown Physician, Family Practice Within Follow-up as needed URINALYSIS WITH Collected: 09/29/2017 Status: F Source: [facility] 7:40 PM HEALTH SYSTEM REPOSITORY TYPE CODE TESTS RESULT OUT OF RANGE REFERENCE UNITS LAB 5767-9(LO CLEAR INC) Appearance Abnormal Urine HAZY LAB 44932-6(L NORMAL OINC) Normal Urobilinogen NORMAL Urine LAB 09574-7(L NEGATIVE OINC) Normal Nitrite Urine NEGATIVE LAB 5803-2(LO 4.5-8.0 INC) Normal pH Urine 6.0 LAB 5797-6(LO NEGATIVE INC) Normal Ketones Urine NEGATIVE LAB 28099-4(L NEGATIVE OINC) Normal Bilirubin Urine NEGATIVE LAB 5792-7(LO NORMAL INC) Glucose Abnormal Urine 50MG/DL LAB 5804-0(LO NEGATIVE INC) Protein Abnormal Urine 30MG/DL LAB 5799-2(LO NEGATIVE INC) Leukocyte Abnormal Esterase Urine 250/UL LAB 5778-6(LO YELLOW INC) Normal Color Urine YELLOW LAB 5794-3(LO NEGATIVE INC) Normal Blood Urine NEGATIVE LAB 5811-5(LO 1.002-1.030 INC) Normal Specific [place] Urine 1.026 Performed By: #### 34921-6, 64904-6 #### [facility], [address], [place]. URINALYSIS MICROSCOPIC Collected: 09/29/2017 Status: F Source: [facility] 7:40 PM HEALTH SYSTEM REPOSITORY TYPE CODE TESTS RESULT OUT OF RANGE REFERENCE UNITS LAB 5821-4(MAYRA 0-5 /hpf NC) High WBC Urine 23 LAB 25666-6(LO FEW/LPF INC) Abnormal Squamous MANY Epithelial Cells Urine LAB 06162-2(LO 0-5 /hpf INC) High RBC Urine 7 LAB 8247-9(MAYRA NONE/LPF NC) Abnormal Mucous Urine OCCASSNL Performed By: #### 67991-0, 97599-7 #### [facility], [address], [place]. US Observed: 09/29/2017 Status: F Source: [facility] TRANSVAGINAL 7:22 PM HEALTH SYSTEM REPOSITORY US OB Less 14 Wks Gest, US , TRANSABDOMINAL AND ENDOVAGINAL TECHNIQUE DATE OF EXAM: 09/29/2017 7:22 PM HISTORY: Pelvic Pain, Female. Vaginal bleeding. Syncope. Positive test. COMPARISON: NONE FINDINGS: There is an intrauterine gestational sac. There is some debris in the gestational sac. There is a tiny hypoechoic area adjacent to the gestational sac compatible with subchorionic hemorrhage. Amnioti c fluid volume and placenta are not assessed. Decompressed urinary bladder. Small pelvic free fluid. Left ovary not visualized. No left adnexal mass shown. Right ovary measures 4.3 x 2.9 x 2.9 cm and contains a follicle or corpus luteal cyst of measuring approximately 2 cm. IMPRESSION: 1. There is an intrauterine gestational sac which contains debris but no pole or yolk sac. EGA of approximately 6 weeks 6 days. Findings are compatible with abnormal . 2. No adnexal mass. Findings provided to the referring service in the emergency department following dictation on 09/29/2017 7:33 PM. Bernadette Cummings thanks you for the opportunity to care for your patient. Workstation ID: [id number] FINAL REPORT Dictated By: Angelo Linder MD 09/29/2017 19:28 Assigned Physician: Angelo Linder MD Reviewed and Electronically Signed By: Angelo Linder MD 09/29/2017 19:33 Transcribed by: PATRICIA 09/29/2017 19:28 Technologist: BASILIO US OB LESS 14 WKS Observed: 09/29/2017 Status: F Source: [facility] GEST 7:22 PM HEALTH SYSTEM REPOSITORY US OB Less 14 Wks Gest, US , TRANSABDOMINAL AND ENDOVAGINAL TECHNIQUE DATE OF EXAM: 09/29/2017 7:22 PM HISTORY: Pelvic Pain, Female. Vaginal bleeding. Syncope. Positive test. COMPARISON: NONE FINDINGS: There is an intrauterine gestational sac. There is some debris in the gestational sac. There is a tiny hypoechoic area adjacent to the gestational sac compatible with subchorionic hemorrhage. Amnioti c fluid volume and placenta are not assessed. Decompressed urinary bladder. Small pelvic free fluid. Left ovary not visualized. No left adnexal mass shown. Right ovary measures 4.3 x 2.9 x 2.9 cm and contains a follicle or corpus luteal cyst of measuring approximately 2 cm. IMPRESSION: 1. There is an intrauterine gestational sac which contains debris but no pole or yolk sac. EGA of approximately 6 weeks 6 days. Findings are compatible with abnormal . 2. No adnexal mass. Findings provided to the referring service in the emergency department following dictation on 09/29/2017 7:33 PM. Bernadette Cummings thanks you for the opportunity to care for your patient. Workstation ID: [id number] - [id number] FINAL REPORT Dictated By: Angelo Linder MD 09/29/2017 19:28 Assigned Physician: Angelo Linder MD Reviewed and Electronically Signed By: Angelo Linder MD 09/29/2017 19:33 Transcribed by: PATRICIA 09/29/2017 19:28 Technologist: BASILIO CBC WITH DIFFERENTIAL Collected: 09/29/2017 Status: F Source: [facility] 6:53 PM HEALTH SYSTEM REPOSITORY TYPE CODE TESTS RESULT OUT OF REFERENCE UNITS RANGE LAB 62593-2(LO 0.0-7.0 % INC) Normal Eosinophil 1.1 LAB 11201-7(LO 4.5-13.5 thou/mcL INC) WBC Normal Count 10.1 LAB 80985-6(LO 27.0-34.0 Picograms INC) MCH Normal 32.5 LAB 751-8(LOIN 1.80-7.70 thou/mcL C) High Neutrophil 8.20 Absolute LAB 13668-5(LO 39.0-75.0 % INC) High Neutrophil 81.3 LAB 718-7(LOIN 12.0-16.0 gm/dL C) Normal Hemoglobin 12.0 LAB 79087-8(LO 11.0-14.8 % INC) RDW Normal 13.7 LAB 23159-4(LO 2.0-8.0 % INC) Normal Monocyte 4.7 LAB 742-7(LOIN 0.00-0.90 thou/mcL C) Normal Monocyte 0.50 Absolute LAB 07340-4(LO 80.0-97.0 FL INC) MCV Normal 94.8 LAB 704-7(LOIN 0.00-0.20 thou/mcL C) Normal Basophil 0.00 Absolute LAB 52030-0(LO 6.2-12.1 FL INC) MPV Normal 8.3 LAB 47395-0(LO 0.0-2.0 % INC) Normal Basophil 0.2 LAB 58054-2(LO 3.80-5.10 million/mcL INC) Low Red Blood Cell 3.71 Count LAB 37758-7(LO 32.0-36.0 gm/dL INC) MCHC Normal 34.3 LAB 42468-1(LO 25.0-45.0 % INC) Low Lymphocyte 12.7 LAB 731-0(LOIN 1.00-4.80 thou/mcL C) Normal Lymphocyte 1.30 Absolute LAB 47706-8(LO 35.0-45.0 % INC) Normal Hematocrit 35.1 LAB 711-2(LOIN 0.00-0.70 thou/mcL C) Normal Eosinophil 0.10 Absolute LAB 61100-5(LO 142-424 thou/mcL INC) Normal Platelet Count 178 Performed By: #### 72684-2 #### [facility], [address] [place] [address]. GFRAA Collected: 09/29/2017 Status: F Source: [facility] 6:53 PM HEALTH SYSTEM REPOSITORY TYPE CODE TESTS RESULT OUT OF RANGE REFERENCE UNITS LAB 54695-8(LO mL/min INC) GFR Normal Estimated >60 Result Comment: The MDRD equation has not been validated for those over 70 years, women, patients with serious co-morbid conditions, or with extremes of body size, muscle mass of nutritional status. Performed By: #### 39742-0, 32028-7, 17846- 2, 61353-7 #### [facility], [address], [place]. GFRBB Collected: 09/29/2017 Status: F Source: [facility] 6:53 PM HEALTH SYSTEM REPOSITORY TYPE CODE TESTS RESULT OUT OF RANGE REFERENCE UNITS LAB 30601-5(LO mL/min INC) GFR Normal Estimated Non >60 Performed By: #### 90157-9, 96061-8, 63473- 2, #### [facility], [address], [place]. BASIC METABOLIC PANEL Collected: 09/29/2017 Status: F Source: [facility] 6:53 PM HEALTH SYSTEM REPOSITORY TYPE CODE TESTS RESULT OUT OF RANGE REFERENCE UNITS LAB 2160-0(MAYRA 0.66-1.30 mg/dL NC) Low Creatinine 0.55 LAB 2951-2(MAYRA 136-145 mMol/L NC) Sodium Normal Level 136 LAB 2075-0(MAYRA 98-107 mMol/L NC) Chloride Normal Level 105 LAB 67653-6(LO 70-110 mg/dL INC) Glucose Normal Level 92 LAB 2823-3(MAYRA 3.6-5.1 mMol/L NC) Normal Potassium Level 3.9 LAB 40893-8(LO 8.9-10.3 mg/dL INC) Calcium Normal Total 9.1 LAB 18563-4(LO 8-20 mg/dL INC) Low BUN 7 LAB 04478-9(LO 6.0-18.0 mMol/L INC) Anion Normal Gap 8.0 Result Comment: PLEASE NOTE:The calculated Anion Gap(AGAP) does not include Potassium. LAB 2028-9(LOINC) 22-32 mMol/L Normal Carbon Dioxide Level 23 Performed By: #### 45546-7, 46955-8, 05067- 2, 77828-1 #### [facility], [address], [place]. HCG QUANTITATIVE Collected: 09/29/2017 Status: F Source: [facility] 6:53 PM HEALTH SYSTEM REPOSITORY TYPE CODE TESTS RESULT OUT OF REFERENCE UNITS RANGE LAB 22604-3(LO miu/ml INC) HCG Normal Quantitative 72774 Result Comment: Reference Ranges Negative = < 5 mIU/ml Positive = > OR EQUAL TO 5 mIU/ml The concentration of HCG rises rapidly during early . A maximum level of 5,000 to 200,000 mIU/ML is reached at 6-8 weeks. This is followed by a slow decline to levels of 1,000 to 50,000 mIU/ML during the third trimester. This test should be used only for the diagnosis and monitoring of . It should not be used for monitoring of neoplastic conditions including gestational trophoblastic disease(partial mole, complete hydatidiform mole, choriocarcinoma) or other tumors. For monitoring of neoplastic disease a Beta subunit HCG test should be ordered. Results obtained using different immunoassay methods are not interchangeable. Patient results should not be trended using values obtained with a different immunoassay method. Performed By: #### 27105-6, 17808-9, 37825- 2, 45866-4 #### [facility], [address] [place], [place]. ED PHYSICIAN NOTES Observed: 09/29/2017 Status: F Source: [facility] 6:45 PM HEALTH SYSTEM REPOSITORY Patient: TASNEEM HENRIQUEZ Age: 22 years Sex: Female : 1995 Associated Diagnoses: None Author: Yoni Jimenez History of Present Illness I have introduced myself as the PA and informed the patient of the supervising/ collaborating physician who is available upon request. I have discussed the case with the ED physician who participated in the decisions regarding any therapeutic interventions. Physician: Dr. Goodwin CARPENTRY SUPERVISOR : Dr. Georges--states she had an ultrasound done at 6 weeks but no heartbeat was found and has been having decreasing hCG Quant that they have been following although is unsure as to whether or not she has a viable that is intrauterine . 22-year-old white female with history of tachycardia in approximately 8 weeks gravid with first day last mental cycle being July 29. Patient presents today via private auto from work for evaluation of near syncopal episode. Patient states earlier today around 4:30 PM she was standing at her place of employment when she had onset of f eeling hot and cold and clammy with seeing black spots in her vision, ringing in her ears and voices surrounding faraway, feeling is that she was going to pass out. She did have nausea with this episode although did not vomit. Patient states she was able to sit down and within several minutes had resolution of symptoms stating currently she feels okay. She did not have any loss of consciousness during this episode and denies hitting her head. Patient states she only had one bowl of cereal this morning stating she thought that she might not have a did not which could've caused her symptoms. She has h ad near syncopal episodes in the past when she is really hot although states she was not hot or exerting herself with her symptoms began today. She did not have any associated chest pain, shortness of b reath or sensation of palpitations. She has not had any abdominal pain or vaginal bleeding/discharge throughout this or today. She has no concern for STDs. She denies any burning with urinatio n, increased urinary frequency or change in urine color or smell. She has had nausea throughout the although states she is still eating like normal with no active vomiting or diarrhea. No associated fever, chills, nausea or vomiting. No chest pain or shortness of breath. No abdominal pain. No headache, visual change, slurred speech, one-sided weakness or altered mental status. She is accompanied by mother who states she has been acting like normal self. Has not taken anything or been given anything aside from a glass of water prior to arrival today. Review of Systems As stated per history of present illness all additional review of systems otherwise negative Health Status Allergies: Allergic Reactions (Selected) Severity Not Documented Amoxicillin- Hives.. Medications: (Selected) Inpatient Medications Ordered Normal Saline 1,000 mL: 1,000 mL/hr, IV, Stop: 10/29/17 18:42:00 EST Prescriptions Prescribed MetroGel 1% topical gel: 1 Appl, Topical, Daily, for 7 Day(s), 7 Tube, 0 Refill(s). Past Medical/ Family/ Social History Medical history Past Medical History Problem List Active No Chronic Problems Surgical history: No active procedure history items have been selected or recorded.. Family history: No family history items have been selected or recorded.. Physical Examination Vital Signs Vital Signs/Measurements 09/29/2017 17:23 EST Temperature 97.9 Degrees F Pulse Rate 99 BPM Respiratory Rate 16 Br PM Pulse Oximetry 100 % Systolic BP 107 mm Hg Diastolic BP 63 mm Hg LOW MAP-CF 78 mm Hg 09/29/2017 17:22 EST Pain Score 0 Weight 64.4 kg Weight Type Actual Weight Lb 141 lbs Weight Oz 15.65 oz Height 180.53 cm Height Type Pt reported Height Ft 5 ft Height in 11.07 Inch BSA 1.82 m2 Body Mass Index 19.8 kg/m2 . PHYSICAL EXAM: CONSTITUTIONAL: 22-year-old white female sitting up in bed. Patient is accompanied by her significant other. She is alert and oriented X3, well-nourished, well appearing, in no apparent distress HEAD: Normocephalic; atraumatic. EARS: Bilateral TMs without erythema or bulging. No hemotympanum. Canals clear bilaterally without lesions, exudate or edema. No tenderness to palpation over the auricle, tragus or mastoid area. EYES: PERRLA. EOM intact. No scleral icterus or injection. NOSE: The nose is normal in appearance without rhinorrhea. ORAL: mucous members are moist and intact Posterior pharynx and bilateral tonsils without erythema, edema or exudate. Uvula midline without sign of oral pharyngeal abscess. Airway patent without drooli ng, stridor or trismus. No sublingual swelling. NECK: No cervical lymphadenopathy. Neck supple without nuchal rigidity. RESP: Normal chest excursion with respiration; breath sounds clear and equal bilaterally; no wheezes, rhonchi, or rales CARD: Regular rhythm, without murmurs, rub or gallop. ABD: diffusely nontender to palpation over entire abdomen Bowel sounds normal and present in all 4 quadrants. Non-distended; non-tender, soft,without rigidity, rebound or guarding. No masses or organomegally SKIN: Normal for age and race; warm and dry; no apparent lesions or rashes. EXT: Pulses are 2 + and equal in upper and lower extremities bilaterally. No calf pain or swelling. BACK: No tenderness to palpation of the thoracic or lumbar spinous processes, paraspinous or lateral musculature. Skin intact no obvious deformity, abrasion or step off appreciated.No CVA tenderness TESTING (inc. XR, iv, lab, ECG): CBC, BMP, hCG Quant, urinalysis, urine test, pelvic ultrasound, EKG, 1 L normal saline, saline lock Medical Decision Making I reviewed the nurse's notes. Patient's urine with 250 leukocyte esterase and 50 glucose but no findings or nitrates or blood. As patient denies any dysuria or urinary frequency I do not feel that any prophylactic treatment is neede d. Patient's glucose slightly elevated to 123 labs otherwise unremarkable with hemoglobin stable at 12.0 and white count normal at 10. Patient's hCG Quant is 32,896--is decreased from HCG quant which lavelle tellez had done recently that was 60,000. Patient's EKG without any acute findings. Pelvic ultrasound does show an intrauterine gestational sac but no pole or yolk sac likely 6 weeks 6 days compati ble with abnormal . As this is consistent with what he states was found on her last ultrasound to go do suspect that she likely has a missed at this time. Patient is feeling better fol lowing IV fluids with no additional episodes of near-syncope, dizziness, lightheadedness or chest pain. I discussed with the patient that I do not feel that her symptoms of near syncope related to her m issed and as she is not having any vaginal discharge or bleeding do not feel that any further workup or imaging is necessary. I will give patient a copy of her ultrasound and labs today with in struction to follow-up early next week with her CARPENTRY SUPERVISOR for further evaluation and management of symptoms area and I discussed with patient that she should return to the ER immediately for any change or worsening of symptoms especially accompanied by abdominal pain, heavy vaginal bleeding where she is filling more than one pad per hour, nausea with vomiting blood or black stools, chest pain, shortness breath, additional near syncopal episodes or any symptoms that appear to be significantly worsening instead of improving. She is okay with this and is ready for discharge. I will give her a work note for today and tomorrow. I will attempt to contact patient's CARPENTRY SUPERVISOR, Dr. Rogers to discuss findings and ensure patient keeps her appointment scheduled next week. After waiting for 30+ minutes I received a call back from patient' s CARPENTRY SUPERVISOR. I will go ahead and let her be discharged at this time as I do not feel change the care for the patient but did encourage patient to follow-up with her CARPENTRY SUPERVISOR next week by keeping appointment for further evaluation and management of her missed and I will give her a copy of ultrasound and labs today. 09/29/2017 21:55 Dr. Ku, hall monitor for Dr. Rogers @ [place] CARPENTRY SUPERVISOR did call me back to discuss findings. She will attempt to the patient and ensure follow-up Further evaluation and management of her symptoms. EKG indicates: I am scribing for Dr. Goodwin normal sinus rhythm at 64 bpm with low QRS but no findings concerning for acute myocardial infarction or abnormality at 1939. Pelvic ultrasound indicates: FINDINGS: There is an intrauterine gestational sac. There is some debris in the gestational sac. There is a tiny hypoechoic area adjacent to the gestational sac compatible with subchorionic hemorrhage. Amnioti c fluid volume and placenta are not assessed. Decompressed urinary bladder. Small pelvic free fluid. Left ovary not visualized. No left adnexal mass shown. Right ovary measures 4.3 x 2.9 x 2.9 cm and contains a follicle or corpus luteal cyst of measuring approximately 2 cm. IMPRESSION: 1. There is an intrauterine gestational sac which contains debris but no pole or yolk sac. EGA of approximately 6 weeks 6 days. Findings are compatible with abnormal . 2. No adnexal mass. Results review: Lab results : LAB 09/29/2017 19:40 EST Color Urine YELLOW Appearance Urine HAZY Specific [place] Urine 1.026 pH Urine 6.0 Glucose Urine 50MG/DL Ketones Urine NEGATIVE Bilirubin Urine NEGATIVE Blood Urine NEGATIVE Urobilinogen Urine NORMAL Leukocyte Esterase Urine 250/UL Nitrite Urine NEGATIVE Protein Urine 30MG/DL 09/29/2017 18:53 EST Sodium Level 136 mMol/L Potassium Level 3.9 mMol/L Chloride Level 105 mMol/L Carbon Dioxide Level 23 mMol/L Anion Gap 8.0 mMol/L Glucose Level 92 mg/dL BUN 7 mg/dL LOW Creatinine 0.55 mg/dL LOW Est CrCl IBW (mL/min)-RX 165.88 mL/min GFR Estimated Non >60 mL/min GFR Estimated >60 mL/min Calcium Total 9.1 mg/dL HCG Quantitative 32,896 mIU/mL WBC Count 10.1 thou/mcL Red Blood Cell Count 3.71 million/mcL LOW Hemoglobin 12.0 gm/dL Hematocrit 35.1 % MCV 94.8 FL MCH 32.5 Picograms MCHC 34.3 gm/dL RDW 13.7 % Platelet Count 178 thou/mcL MPV 8.3 FL Neutrophil 81.3 % HI Lymphocyte 12.7 % LOW Monocyte 4.7 % Eosinophil 1.1 % Basophil 0.2 % Neutrophil Absolute 8.20 thou/mcL HI Lymphocyte Absolute 1.30 thou/mcL Monocyte Absolute 0.50 thou/mcL Eosinophil Absolute 0.10 thou/mcL Basophil Absolute 0.00 thou/mcL 09/29/2017 17:41 EST Urine Color POCT -Clinic Yellow (Normal) Urine Clarity POCT -Clinic Slightly Cloudy Specific [place] Urine POCT 1.020 NML pH Urine POCT 5 NML Glucose Urine POCT Negative (Normal) Ketones Urine POCT Negative (Normal) Bilirubin Urine POCT Negative (Normal) Blood Urine POCT Negative (Normal) Urobilinogen Urine POCT 0 mg/dL NML Leukocytes Urine POCT 1+ small Nitrite Urine POCT Negative (Normal) Protein Urine POCT Negative (Normal) Test POCT -Clinic Positive Test POCT Positive 09/29/2017 17:28 EST Glucose POCT-LAB 123 mg/dL HI . Procedure Reexamination/ Reevaluation Impression and Plan DIAGNOSIS: Near syncope Missed , likely Plan Condition: Improved, Stable. Disposition: Discharged: to home. Patient was given the following educational materials: Near- Syncope, Miscarriage, [employer] work release. ([id number]). Follow up with: PCP Unknown Physician, Family Practice Within Follow-up as needed; Return to Emergency Department Within Follow-up as needed Return to the ER immediately for any change or worsening of s ymptoms especially accompanied by abdominal pain, heavy vaginal bleeding where she is filling more than one pad per hour, nausea with vomiting blood or black stools, chest pain, shortness breath, additi onal near syncopal episodes or any symptoms that appear to be significantly worsening instead of improving. ; CARPENTRY SUPERVISOR Within 3 to 4 days Call for an Appointment. Basic Information Patient information:: Chief Complaint from Nursing Triage Note : Chief Complaint-Triage 09/29/2017 17:22 EST Chief Complaint-Triage Near Syncope . GLUCOSE POCT Collected: 09/29/2017 Status: F Source: [facility] (UPLOADED) 5:28 PM HEALTH SYSTEM REPOSITORY TYPE CODE TESTS RESULT OUT OF REFERENCE UNITS RANGE LAB 2340-8(LOIN 70-110 mg/dL C) High Glucose 123 POCT-LAB Result Comment: Treatment ranges and critical values established by Patient Care Services. All follow-up actions were taken by Patient Care Services. Performed By: #### 2430-8 #### TELCOR POINT OF CARE US OB 1ST TRIMESTER WITH Observed: 09/18/2017 Status: F Source: [facility] TRANSVAGINAL 3:35 PM TWO REPOSITORY TRANSABDOMINAL AND COLOR FLOW SINGLE FETUS Order Comment: Reason for exam?:vaginal bleeding Injury/Trauma or Illness?:Illness/Other How long have you had these symptoms (acute/chronic)?:Unknown History of cancer?:denies Surgeries, chemotherapy, or radiation?:denies Type of Exam?:Unknown Additional signs and symptoms?:unknown EXAMINATION: FIRST TRIMESTER OBSTETRIC ULTRASOUND 09/18/2017 TECHNIQUE: Transabdominal and transvaginal first trimester obstetric pelvic ultrasound was performed with color Doppler flow evaluation. COMPARISON: Report of previous ultrasound 09/14/2017 which demonstrated a 6.0-week . No mention of pole in the report. HISTORY: ORDERING SYSTEM PROVIDED HISTORY: preg vag bleeding; TECHNOLOGIST PROVIDED HISTORY: Reason for Exam: vaginal bleeding Illness/Other Acuity: Unknown Cancer History: denies Surgery, Radiation History: denies Type of Encounter: Unknown FINDINGS: Uterus: 10.8 x 7.2 x 5.7 cm. Endometrial thickness 2.23 cm. Gestational Sac: Single normal-appearing gestational sac. Subchorionic bleed measuring 2.3 x 3.1 x 0.4 cm. Yolk Sac: Present. Pole: Single pole. [place]-Rump Length: [place]-rump length 0.40 cm consistent with an estimated gestational age of 6.4 weeks. Heart Rate: No cardiac activity identified. Right ovary: 3.1 x 4.0 x 3.4 cm. Complex cyst measuring 2.0 x 2.2 x 1.6 cm. Normal arterial and venous Doppler flow. Left ovary: 1.9 x 2.9 x 1.8 cm. Normal arterial and venous Doppler flow. Free fluid: Small quantity of free fluid in the posterior cul-de-sac. Measurements: Estimated gestational age by current ultrasound: 6.4 weeks. Estimated gestational by LMP/prior ultrasound: 7.2 weeks. Estimated Due Date: 05/10/2018 IMPRESSION: Intrauterine gestational sac with pole and yolk sac consistent with an estimated gestational age of 6.4 weeks. No cardiac activity identified, not unexpected based on crown-rump length. Consider follow-up hCG and/or ultrasound to ensure viability. Small subchorionic bleed. Complex right ovarian cyst measuring 2.2 cm. Physiologic free fluid. No torsion. PRABHJOT/attilag Workstation ID: [id number] Dictated by: CARLENE DYER on SunSep 18, 2017 4:49:11 PM EST Transcribed by: JAY HIGGINBOTHAM on SunSep 18, 2017 4:57:38 PM EST Finalized by: CARLENE DYER on SunSep 19, 2017 10:05:45 PM EST ALLERGIES ALLERGIES DATE TYPE / CODE NAME / CODE REACTION SEVERITY SOURCE 08/14/2018 Drug amoxicillin/[id number] Hives Unknown [place] Allergy/416 675(RXNORM) Community 055997([facility] ED CT) Repository 06/29/2017 DRUG METRONIDAZOLE Nausea [facility] INGREDI/419 Repository [id number]([facility] ED CT) 03/01/2017 DRUG AMOXICILLIN Hives [facility] INGREDI/419 Repository 181500([facility] ED CT) ENCOUNTERS ENCOUNTERS ADMIT/DISCHARGE ACCOUNT NUMBER ADMITTING ENCOUNTER LOCATION SOURCE CLASS 08/14/2018/08/14/20 [id number] Emergency [place] [address] ding:ED Repository 08/07/2018/08/07/20 [id number] Emergency [place] Mylene[address] ding:ED Repository 05/29/2018/05/29/20 [id number] Emergency Building:[place] [address] Room: [place] [address]Bed: [address] Repository 05/19/2018/05/19/20 [id number] Emergency [address] ng:EDS Repository 04/21/2018/04/21/20 [id number] Emergency [address] ng:EDS Repository 04/20/2018/04/20/20 [id number] Emergency [address] ng:EDS Repository 02/21/2018/02/22/20 [id number] Emergency [address] ng:EDS Repository 12/12/2017/12/13/19 [id number] Ambulatory Building:[place] [address] Y Three Repository 10/26/2017 [id number] MARI, Ambulatory Building:[facility] CDS One EDWARD Repository 10/26/2017/10/27/19 [id number] Ambulatory Building:[place] [address] GFPEEMAINST Three Repository 10/12/2017/10/12/19 [id number] Emergency Building:[place] [address] RRoom: One W58Bed: 58 Repository 10/11/2017/10/11/19 [id number] BRENNAN, Ambulatory Building:[place] [address] STACIE ISAAC CDS One Repository 09/29/2017/09/29/19 [id number] Emergency [address] ng:EDS Repository 09/28/2017/09/28/19 [id number] Ambulatory Building:[place] [address] GFPEEMAINST Three Repository 09/19/2017/09/19/19 [id number] Ambulatory Building:[place] [address] GFPEEMAINST Three Repository 09/18/2017/09/19/19 [id number] Emergency Building:[place] [address] GRoom: Two LWBSBed: Repository LWBS PAYERS PAYERS ENCOUNTER GUARANTOR PAYER SUBSCRIBER SOURCE 08/14/2018 TASNEEM Echols Primary NOT GIVENUNK [place] [id number] Insurance:SELF PAY [place], [place] Number: Effective Repository [id number]: ([phone]) Date:2018-08-14 [phone] () 08/07/2018 TASNEEM Echols Primary NOT GIVENUNK [place] [id number] Insurance:SELF PAY [place], [place] Number: Effective Repository [id number]: ([phone]) Date:2018-08-07 [phone] () 05/29/2018 TASNEEM Primary Insurance:[facility] COMM[facility]ITY LENASTERDOB: [place] [id number] [facility] Number: [id number] [facility] [id number] [address] [place] [address] Date:7395[place]94[place] Repository [address]Vfp: ([phone]) Name:IRMA 91321Anm: (HP) [phone] (HP) 05/19/2018 TASNEEM Onesimo Primary Insurance:[facility] Zoila MARTINEZB: [facility] PARPolicy Number: [id number] Repository HOWE[place] [id number] [place] Date:2017-06-2799889-1514Tet: [id number] Name:B () (WP) 04/21/2018 TASNEEM Echols Primary Insurance:[facility] MICHELLEB: [facility] MICHELLEB: Health System PARPolicy Number: [id number] Repository HOW[place] [id number] [place] Date:2017-06-2723583-6435Mzp: [id number] Name:B () (WP) 04/20/2018 TASNEEM Echols Primary Insurance:[facility] MICHELLEB: [facility] MICHELLEB: Health System PARPolicy Number: [id number] Repository HOWEY [id number] [place] Date:2017-06-2770807-7130Ycn: [id number] Name:B () (WP) 02/21/2018 TASNEEM K Primary Insurance:[facility] MICHELLEB: [facility] MICHELLEB: Health System PARPolicy Number: [id number] Repository HOWEY [id number] [place] Date:2017-06-2718990-0375Hyl: [id number] Name:B () (WP) 12/12/2017 TASNEEM Echols Primary Insurance:[facility] LEMASTERDOB: MANAGED LEMASTERDOB: Three Repository [facility] [id number] HOMECROFT Number: [address] [place], [id number] [place], [place] [address]Sir: Date:6680-63-92FU [facility] [address]Zlo: [address] [place] [address] (HP)Tel: [phone]: [phone]) (HP) [phone] (WP) [phone] 10/26/2017 TASNEEM Echols Primary Insurance:[facility] LEMASTERDOB: MANAGED LEMASTERDOB: Repository [facility] [id number] HOMECROFT Number: [address] [place], [id number] [place], [place] [address]Gij: Date:8567-82-05RS [facility] [place] [place] [address]Cwb: [address] [place] [address] (HP)Tel: [phone]: [phone]) (HP) [phone] (WP) [phone] 10/26/2017 TASNEEM Onesimo Primary Insurance:[facility] LEMASTERDOB: MANAGED LEMASTERDOB: Three Repository MEDICAIDPolicy [id number] HOMECROFT Number: [address] [place], [id number] [place], [place] [address]Ult: Date:3244-67-55UF [facility] [place] [address]Nnj: [address] [place] [address] (HP)Tel: [phone]: [phone]) (HP) [phone] (WP) [phone] 10/12/2017 TASNEEM Primary Insurance:[facility] LEMASTERDOB: MANAGED LEMASTERDOB: Repository MEDICAIDPolicy [id number] HOMECROFT Number: 5 [address] [place], [id number] [place], [place] [address]Uyy: Date:9111-47-30[address] [place] [address]Xqx: [address] [place] [address] (HP)Tel: [phone]: [phone]) (HP) [phone] (WP) [phone] 10/11/2017 TASNEEM Echols Primary Insurance:[facility] LEMASTERDOB: MANAGED LEMASTERDOB: Repository MEDICAIDPolicy [id number] HOMECROFT Number: [address] [place], [id number] [place], [place] [address]Nlw: Date:8461-74-53QH [address] [place] [address]Wdy: [address] [place] [address] (HP)Tel: [phone]: [phone]) (HP) [phone] (WP) [phone] 09/29/2017 TASNEEM Echols Primary Insurance:[facility] LEMASTERDOB: [address] LEMASTERDOB: Health System PARPolicy Number: [id number] Repository HOMECROFT [id number] [place], [place] Date:2017-06-27 [address]Eha: [id number] Name:B (HP) (WP) 09/28/2017 TASNEEM Echols Primary Insurance:[facility] LEMASTERDOB: MANAGED LEMASTERDOB: Three Repository MEDICAIDPolicy [id number] HOMECROFT Number: [address] [place], [id number] [place], [place] [address]Xpj: Date:3099-82-14FU [address] [place] [address]Tbu: [address] [place] [address] (HP) [phone]: [phone] (HP) [phone] 09/19/2017 TASNEEM Primary Insurance:[facility] LEMASTERDOB: MANAGED LEMASTERDOB: Three Repository MEDICAIDPolicy [id number] HOMECROFT Number: 5 [address] [place], [id number], [place] [address]Nsn: Date:[id number] [place] [place] [address]Iam: [address] [place] [address] () [phone]: [phone] 09/18/2017 TASNEEM K Primary Insurance:[facility] Two LEMASTERDOB: MANAGED LEMASTERDOB: Repository MEDICAIDPolicy [id number] HOMECROFT Number: 5 [address] [place], [id number] [place], [place] [address]Yrm: Date:[id number] [place] [place] [address]Agg: [address] [place] [address] () [phone]: [phone]
--- OUTSIDE RECORDS SUMMARY | 2018-09-23 14:42 | XMS RPT_ITS | Summary of Care ---
:1995 Author Organization [facility] Address [address] [place] [address] Care Team Providers Name Role Phone Yanet Barnes MD Primary Care Provider Reason for Visit Reason Comments Nasal Congestion stuffy nose, head hurts, hot then cold x 1 day Encounter Details Date Type Department Care Team Description 12/12/2017 Office Visit [facility] Urgent Joo Joya, Acute nasopharyngitis Care Charlotte Jonathon CRUMP (Primary Dx) [address] [place] [address] [place], [place] [phone] Allergies Active Allergy Reactions Severity Noted Date Comments Amoxicillin Hives 03/01/2017 Metronidazole GI Intolerance 06/29/2017 as of this encounter Medications Prescription Sig. Disp. Refills Start Date End Date Status polyethylene glycol Take 17 255 g 5 10/26/2017 10/21/2018 Active (MIRALAX) 17 gram (seventeen) g powderIndications: by mouth daily. Constipation, unspecified constipation type ondansetron Dissolve 1 20 tablet 0 10/26/2017 Active (ZOFRAN-ODT) 4 MG (one) tablet (4 disintegrating mg total) on tabletIndications: top of tongue Nausea every 8 (eight) hours as needed for nausea. ferrous sulfate 325 (65 Take 1 (one) 90 tablet 11 10/26/2017 10/26/2018 Active FE) MG tablet (325 mg tabletIndications: total) by mouth Anemia due to blood 3 (three) times loss a day with meals. brompheniramine-pseudoe Take 5 mL by 118 mL 0 12/12/2017 12/22/2017 Active PHEDrine-DM 2-30-10 mouth 4 (four) mg/5 mL times a day as syrupIndications: Acute needed. nasopharyngitis fluticasone (FLONASE) Instill 2 (two) 16 g 0 12/12/2017 Active 50 mcg/actuation nasal sprays into sprayIndications: Acute each nostril nasopharyngitis daily. as of this encounter Active Problems Problem [...] for varicella vaccine 09/03/2017 Overview: Varicella equivocal Resolved Problems Problem Noted Date Resolved Date [...] of ongoing missed AB [facility] for increased vaginal bleeding and abdominal cramping. [...] 09/03/2017 Last Assessment & Plan: Will recheck [facility] today. Continue vitamins. Social History Tobacco Use Types Packs/Day Years Used Date Current Every Day Smoker Cigarettes 0.5 1 Smokeless Tobacco: Never Used Comments: '' I'm cutting down'' started smoking one year ago Alcohol Use Drinks/Week oz/Week Comments No denies this Sex Assigned at Date Recorded Not on file as of this encounter Last Filed Vital Signs Vital Sign Reading Time Taken Blood Pressure 114/80 12/12/2017 4:51 PM EDT Pulse 89 12/12/2017 4:51 PM EDT Temperature 37.7 ??C (99.8 ??F) 12/12/2017 4:51 PM EDT Respiratory Rate 14 12/12/2017 4:51 PM EDT Oxygen Saturation 99% 12/12/2017 4:51 PM EDT Inhaled Oxygen Concentration - - Weight 58.5 kg (129 lb) 12/12/2017 4:51 PM EDT Height 180.3 cm (5' 11) 12/12/2017 4:51 PM EDT Body Mass Index 17.99 12/12/2017 4:51 PM EDT in this encounter Instructions Patient Instructions - Joo Joya PA-C - 12/12/2017 5:10 PM EDTFormatting of this note may be different from the original. 1. Bromfed as directed for sinus congestion 2. Flonase daily for the next 14 days or 5-7 days beyond when your symptoms resolve. 3. Drink plenty of fluids. 4. Contact your PCP if symptoms do not resolve within the next 7-10 days or if symptoms worsen. Upper Respiratory Infection (Cold): Care Instructions Your Care Instructions An upper respiratory infection, or URI, is an infection of the nose, sinuses, or throat. URIs are spread by coughs, sneezes, and direct contact. The common cold is the most frequent kind of URI. The flu and sinus infections are other kinds of URIs. Almost all URIs are caused by viruses. Antibiotics won't cure them. But you can treat most infections with home care. This may include drinking lots of fluids and taking tahx-rav-zhsgaae pain medicine.You will probably feel better in 4 to 10 days. The doctor has checked you carefully, but [...] you care for yourself at home? ?? To prevent dehydration, drink plenty of fluids, enough so that your urine is light yellow or clear like water. Choose water and other caffeine-free clear liquids until you feel better. If you have kidney, heart, or liver disease and have to limit fluids, talk with your doctor before you increase the amount of fluids you drink. ?? Take an crrs-lwg-iytxdmr pain medicine, such as acetaminophen (Tylenol), ibuprofen (Advil, Motrin), or naproxen (Aleve). Read and follow all instructions on the label. ?? Before you use cough and cold medicines, check the label. These medicines may not be safe for young children or for people with certain health problems. ?? Be careful when taking fkai-iwg-fgkymmw cold or flu medicines and Tylenol at the same time. Many of these medicines have acetaminophen, which is Tylenol. Read the labels to make sure that you are not taking more than the recommended dose. Too much acetaminophen (Tylenol) can be harmful. ?? Get plenty of rest. ?? Do not smoke or allow others to smoke around you. If you need help quitting, talk to your doctor about stop-smoking programs and medicines. These can increase your chances of quitting for good. When should you call for help? Call 911 anytime you think you may need emergency care. For example, call if: ? ?? You have severe trouble breathing. ?Call your doctor now or seek immediate medical care if: ? ?? You seem to be getting much sicker. ? ?? You have new or worse trouble breathing. ? ?? You have a new or higher fever. ? ?? You have a new rash. ?Watch closely for changes in your health, and be sure to contact your doctor if: ? ?? You have a new symptom, such as a sore throat, an earache, or sinus pain. ? ?? You cough more deeply or more often, especially if you notice more mucus or a change in the color of your mucus. ? ?? You do not get better as expected. Where can you learn more? Log into your personal health record on [email or web address] [facility] and enter K520 in the Education box to learn more about Upper Respiratory Infection (Cold): Care Instructions. Current as of: August 01, 2017 Content Version: 11.6 ?? [id number] [employer]. Care instructions adapted under license by your healthcare professional. If you have questions about a medical condition or this instruction, always ask your healthcare professional. [employer] disclaims any warranty or liability for your use of this information. in this encounter Progress Notes Joo Joya PA-C - 12/12/2017 5:11 PM EDTFormatting of this note may be different from the original. PATIENT NAME: Tasneem Echols [facility] [address] [place] [id number] : 1995 DATE OF VISIT: 12/12/2017 SS#: [id number] PROVIDER: Joo Joya PA-C Chief Complaint Patient presents with ??? Nasal Congestion stuffy nose, head hurts, hot then cold x 1 day SUBJECTIVE 22 y.o. female presents Nasal Congestion (stuffy nose, head hurts, hot then cold x 1 day) URI This is a new problem. The current episode started yesterday. The problem has been unchanged. There has been no fever. Associated symptoms include congestion, coughing and rhinorrhea. She has tried nothing for the symptoms. The treatment provided no relief. MEDICAL ISSUES Past Medical History: Diagnosis Date ??? Anemia ''low iron levels'' ??? Hypertension sometime high blood pressure ??? Tachycardia Patient Active Problem List Diagnosis SNOMED CT(R) ??? Need for varicella vaccine REQUIRES VACCINATION ??? Tobacco use TOBACCO USE AND EXPOSURE - FINDING ??? History of spontaneous H/O: MISCARRIAGE ??? Constipation CONSTIPATION ??? Poor appetite DECREASE IN APPETITE ??? Anemia due to blood loss ANEMIA DUE TO BLOOD LOSS SOCIAL HISTORY Social History Social History ??? Marital status: Single Spouse name: N/A ??? Number of children: N/A ??? 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 Smoking status: Current Every Day Smoker Packs/day: 0.50 Years: 1.00 Types: Cigarettes ??? Smokeless tobacco: Never Used Comment: '' I'm cutting down'' started smoking one year ago ??? Alcohol use No Comment: denies this ??? Drug use: No Comment: denies ??? Sexual activity: Yes Partners: Male control/ protection: None Comment: none after delivery Other Topics Concern ??? Not on file Social History Narrative ??? No narrative on file FAMILY HISTORY Family History Problem Relation Age of Onset ??? Diabetes Maternal Grandfather ??? COPD Maternal Grandfather REVIEW OF SYSTEMS Review of Systems Constitutional: Negative for chills and fever. HENT: Positive for congestion and rhinorrhea. Respiratory: Positive for cough. All other systems reviewed and are negative. MEDICATIONS PRIOR TO VISIT Current Outpatient Prescriptions on File Prior to Visit Medication Sig Dispense Refill ??? ferrous sulfate [...] 255 g 5 No current facility-administered medications on file prior to visit. ALLERGIES/INTOLERANCES Allergies Allergen Reactions ??? Amoxicillin Hives ??? Flagyl [Metronidazole] GI Intolerance OBJECTIVE BP 114/80 Pulse 89 Temp 99.8 ??F (37.7 ??C) (Tympanic) Resp 14 Ht 5' 11 Wt 58.5 kg (129 lb) LMP 07/29/2017 (LMP Unknown) SpO2 99% ? Unknown BMI 17.99 kg/m?? Physical Exam Constitutional: She is oriented to person, place, and time. Vital signs are normal. She appears well-developed and well-nourished. She does not appear ill. No distress. HENT: Head: Normocephalic and atraumatic. Right Ear: Tympanic membrane and ear canal normal. Left Ear: Tympanic membrane and ear canal normal. Nose: Mucosal edema and rhinorrhea present. Mouth/Throat: Uvula is midline, oropharynx is clear and moist and mucous membranes are normal. Eyes: Conjunctivae are normal. Pupils are equal, round, and reactive to light. Neck: Normal range of motion. Neck supple. No tracheal deviation present. Cardiovascular: Normal rate, regular rhythm, S1 normal, S2 normal and normal heart sounds. Pulmonary/Chest: Effort normal and breath sounds normal. She has no decreased breath sounds. She hasno wheezes. She has no rhonchi. Lymphadenopathy: She has no cervical adenopathy. Neurological: She is alert and oriented to person, place, and time. No cranial nerve deficit. Skin: Skin is warm and dry. Psychiatric: She has a normal mood and affect. Her behavior is normal. Nursing note and vitals reviewed. PROCEDURE Procedures Results No results found for this or any previous visit (from the past 168 hour(s)). ASSESSMENT/PLAN (expressed as patient instructions): SNOMED CT(R) 1. Acute nasopharyngitis COMMON COLD wkwhkrdkrvrxjpd-tyvwdsfLRTVapep-KA 2-30-10 mg/5 mL syrup fluticasone (FLONASE) 50 mcg/actuation nasal spray No Follow-up on file. ADDITIONAL CLINICAL COMMENTS Patient's history and previous medical records have been reviewed and information used in formulating today's plan of care. Pertinent social and family history reviewed No notes on file ORDERS PLACED THIS VISIT No orders of the defined types were placed in this encounter. MEDICATION LIST AT END OF VISIT Current Outpatient Prescriptions Medication Sig Dispense Refill ??? cvztwzpydhxfkqv-ghxoywdBRHAgpba-DF 2-30-10 mg/5 mL syrup Take 5 mL by mouth 4 (four) times a dayas needed. 118 mL 0 ??? ferrous sulfate 325 (65 FE) MG tablet Take 1 (one) tablet (325 mg total) by mouth 3 (three) times a day with meals. 90 tablet 11 ??? fluticasone (FLONASE) 50 mcg/actuation nasal spray Instill 2 (two) sprays into each nostril daily. 16 g 0 ??? ondansetron (ZOFRAN-ODT) 4 MG disintegrating tablet Dissolve 1 (one) tablet (4 mg total) on top of tongue every 8 (eight) hours as needed for nausea. 20 tablet 0 ??? polyethylene glycol (MIRALAX) 17 gram powder Take 17 (seventeen) g by mouth daily. 255 g 5 No current facility-administered medications for this visit. in this encounter Plan of Treatment Health Maintenance Due Date Last Done Comments ANNUAL EXAM 1995 TETANUS EVERY 10 YR 1995 HPV VACCINES (1 of 3 - Female 3 Dose Series) 2008 CHLAMYDIA SCREENING 2012 SEQUENTIAL INFLUENZA VACCINE (#1) 2017 as of this encounter Visit Diagnoses Diagnosis Acute nasopharyngitis - Primary Acute nasopharyngitis (common cold)
--- OUTSIDE RECORDS SUMMARY | 2018-09-23 14:42 | XMS RPT_ITS | Summary of Care ---
:1995 Author Organization [facility] Address [address] [place] [address] Phone Care Team Providers Name Role Phone Unavailable Primary Care Provider Unavailable Reason for Visit Reason Comments Abdominal Pain Vaginal Discharge Encounter Details Date Type Department Care Team Description 04/15/2017 - Emergency [place] [facility] Pelvic pain in female 04/16/2017 Hospital Emergency DO Ab (Primary Dx);Acute Department [address] [facility] UTI;Concern about STD [address] [facility] [address] in female without Road Luis [address] diagnosis;Cervicitis; [place] [address] [facility] Cyst of left ovary [phone] [place] [address] [phone] Allergies Active Allergy Reactions Severity Noted Date Comments Amoxicillin Hives 03/01/2017 as of this encounter Medications Prescription Sig. Disp. Refills Start Date End Date Status metroNIDAZOLE (FLAGYL) Take 1 (one) 14 tablet 0 04/16/2017 04/23/2017 Active 500 MG tablet tablet (500 mg total) by mouth 2 (two) times a day with meals for 7 days. ondansetron (ZOFRAN Dissolve 1 9 tablet 0 04/16/2017 04/19/2017 Active ODT) 4 MG (one) tablet (4 disintegrating tablet mg total) on top of tongue every 8 (eight) hours as needed for nausea. nitrofurantoin, Take 1 (one) 14 capsule 0 [...] Vital Sign Reading Time Taken Blood Pressure 118/86 04/16/2017 1:50 AM EDT Pulse 68 04/16/2017 1:50 AM EDT Temperature 36.8 ??C (98.2 ??F) 04/15/2017 10:29 PM EDT Respiratory Rate 14 04/16/2017 1:50 AM EDT Oxygen Saturation 99% 04/16/2017 1:50 AM EDT Inhaled Oxygen Concentration - - Weight 62.6 kg (138 lb) 04/15/2017 10:29 PM EDT Height 182.9 cm (6') 04/15/2017 10:29 PM EDT Body Mass Index 18.72 04/15/2017 10:29 PM EDT in this encounter Discharge Instructions Claudia Sheffield PA-C - 04/16/2017Cervicitis: Care Instructions Your Care Instructions Cervicitis means that your cervix is inflamed. The cervix is the part of your uterus that opens intoyour vagina. This problem is most often caused by an infection. Some women get it after they have a sexually transmitted infection (STI). These include gonorrhea and chlamydia. It can also be caused by irritation from some types of control. Two examples are the cervical cap or diaphragm. Your doctor may do some tests to help find the cause of the problem. It is very important to treat cervicitis. If you don't, you could have serious health problems. For this reason, you may need a test after your treatment to make sure the infection is gone. Follow-up care is a riddle part of [...] take the full course of antibiotics. ?? If your doctor prescribed antifungal medicine, use it as directed. ?? While you are being treated, do not have sex. If your treatment is one dose of antibiotics, wait at least 7 days after you take your medicine before you have any kind of sexual contact. Even if you use a condom, you could get infected again. ?? It's important to tell your sex partner or partners that you have cervicitis. It may be related to an STI. Any partners should get tested and then treated if they have an STI. This is true even if they don't have symptoms. ?? Do not douche. It can change the normal balance of substances in your vagina. ?? Do not use tampons while you are being treated. To prevent STIs ?? Use latex condoms every time you have sex. Use them from the start to the end of sexual contact. ?? Talk to your partner before you have sex. Find out if he or she has or is at risk for any sexually transmitted infection (STI). Keep in mind that a person may be able to spread an STI even if he or she does not have symptoms. ?? Do not have sex with anyone who has symptoms of an STI. These include sores on the genitals or mouth. ?? Having one sex partner (who does not have STIs and does not have sex with anyone else) is a good way to avoid STIs. When should you call for help? Call your doctor now or seek immediate medical care if: ?? You have new pelvic pain, or the pain in your pelvis gets worse. ?? You have a new discharge from your vagina. ?? You have a new or higher fever. Watch closely for changes in your health, and be sure to contact your doctor if: ?? You do not get better as expected. ?? Your symptoms continue or come back after treatment, or you get new symptoms. Where can you learn more? Log into your personal health record on [email or web address] and enter P897 in the Education box to learn more about Cervicitis: Care Instructions. Current as of: March 21, 2016 Content Version: 11.2 ?? 6119-8377 [employer]. Care instructions adapted under license by your healthcare professional. If you have questions about a medical condition or this instruction, always ask your healthcare professional. [employer] disclaims any warranty or liability for your [...] your doctor if you can take an bmer-hvy-pcnnlnp medicine. ?? Avoid constipation. Make sure you [...] Log into your personal health record on [email or web address] and enter I547 in the Education box to learn more about Functional Ovarian Cyst: Care Instructions. Current as of: June 08, 2016 Content Version: 11.2 ?? 5070-5039 [employer]. Care instructions adapted under license by your healthcare professional. If you have questions about a medical condition or this instruction, always ask your healthcare professional. [employer] disclaims any warranty or liability for your use of this information. in this encounter Plan of Treatment Pending Results Name Priority Associated Diagnoses Date/Time Chlamydia/GC/Trichomonas Routine 04/15/2017 11:05 PM EDT Amplified RNA Chlamydia/Gonorrhoeae Amplified Routine 04/15/2017 11:05 PM EDT RNA Trichomonas vaginalis Amplified Routine 04/15/2017 11:05 PM EDT RNA Urine Aerobic Culture Routine 04/15/2017 11:05 PM EDT Scheduled Tests Name Priority Associated Diagnoses Order Schedule Chlamydia/GC/Trichomonas Routine Once for 1 Occurrences Amplified RNA starting 04/15/2017 until 04/15/2017 Chlamydia/Gonorrhoeae Routine Once for 1 Occurrences Amplified RNA starting 04/15/2017 until 04/15/2017 Trichomonas vaginalis Routine Once for 1 Occurrences Amplified RNA starting 04/15/2017 until 04/15/2017 Urine Aerobic Culture Routine Once for 1 Occurrences starting 04/16/2017 until 04/16/2017 Health Maintenance Due Date Last Done Comments TETANUS EVERY 10 YR 1997 HPV VACCINES (1 of 3 - Female 3 Dose Series) 2008 SEQUENTIAL INFLUENZA VACCINE (#1) 2017 as of this encounter Results US Pelvic Transabdominal And Transvaginal With Color Flow (04/16/2017 12:26 AM) Specimen Performing Laboratory [facility] Impressions 1.?Endometrial stripe measures 13 mm.?Tiny 2 mm endometrial cyst is present. 2.?1.9 cm complex cystic focus within the left ovary which may represent an involuting cyst.?Normal appearance of the right ovary. 3.?Moderate volume of pelvic free fluid. DLH/tde Workstation ID:? [id number] Narrative EXAMINATION: US PELVIC TRANSABDOMINAL AND TRANSVAGINAL WITH COLOR FLOW HISTORY: ORDERING SYSTEM PROVIDED HISTORY:?left lower quadrant pelvic pain, TECHNOLOGIST PROVIDED HISTORY: Reason for exam: llq, pelvic pain Illness/Other Cancer History: Surgery, RadiationHistory: Encounter Type: Unknown Additional signs and symptoms: ORDERING SYSTEM PROVIDED DIAGNOSIS CODES: COMPARISON: None. TECHNIQUE: Grayscale, color Doppler and spectral Doppler ultrasound examination of the pelvis was performed both transabdominally and transvaginally. FINDINGS: TRANSABDOMINAL ULTRASOUND: Uterus measures 8.5 x 3.9 x 4.3 cm.?Bladder is incompletely distended and unremarkable.?Ovaries are better seen transvaginally. TRANSVAGINAL ULTRASOUND: Right ovary measures 2.9 x 1.7 x 1.7 cm and is normal in appearance.?Normal arterial spectral Doppler waveform is present within the right ovary.?Resistive index of 0.55.?Normal venous Doppler waveform is present within the right ovary. Left ovary measures 3.3 x 1.8 x 2.8 cm and contains a complex cystic focus measuring 1.9 x 1.8 x 1.9 cm.?Normal arterial spectral Doppler waveform is present within the left ovary.?Resistive index is 0.38.?Normal venous Doppler waveform is present within the left ovary. Moderate volume of pelvic free fluid. Tiny endometrial cyst measuring 2 mm.?Endometrial stripe measures 13 mm.?No uterine mass. Procedure Note Interface, Rad [facility] - 04/16/2017 5:11 AM EDT EXAMINATION: US PELVIC TRANSABDOMINAL AND TRANSVAGINAL WITH COLOR FLOW HISTORY: ORDERING SYSTEM PROVIDED HISTORY: left lower quadrant pelvic pain, TECHNOLOGIST PROVIDED HISTORY: Reason for exam: llq, pelvic pain Illness/Other Cancer History: Surgery, RadiationHistory: Encounter Type: Unknown Additional signs and symptoms: ORDERING SYSTEM PROVIDED DIAGNOSIS CODES: COMPARISON: None. TECHNIQUE: Grayscale, color Doppler and spectral Doppler ultrasound examination of the pelvis was performed both transabdominally and transvaginally. FINDINGS: TRANSABDOMINAL ULTRASOUND: Uterus measures 8.5 x 3.9 x 4.3 cm. Bladder is incompletely distended and unremarkable. Ovaries are better seen transvaginally. TRANSVAGINAL ULTRASOUND: Right ovary measures 2.9 x 1.7 x 1.7 cm and is normal in appearance. Normal arterial spectral Doppler waveform is present within the right ovary. Resistive index of 0.55. Normal venous Doppler waveform is present within the right ovary. Left ovary measures 3.3 x 1.8 x 2.8 cm and contains a complex cystic focus measuring 1.9 x 1.8 x 1.9 cm. Normal arterial spectral Doppler waveform is present within the left ovary. Resistive index is 0.38. Normal venous Doppler waveform is present within the left ovary. Moderate volume of pelvic free fluid. Tiny endometrial cyst measuring 2 mm. Endometrial stripe measures 13 mm. No uterine mass. IMPRESSION: 1. Endometrial stripe measures 13 mm. Tiny 2 mm endometrial cyst is present. 2. 1.9 cm complex cystic focus within the left ovary which may represent an involuting cyst. Normal appearance of the right ovary. 3. Moderate volume of pelvic free fluid. [employer] Workstation ID: [id number] CBC Auto Differential (04/15/2017 11:13 PM) Component Value Ref Range WBC 10.32 4.50 - 11.00 K/mcL RBC 3.86 (L) 4.00 - 5.20 M/mcL Hemoglobin 12.1 12.0 - 16.0 g/dL Hematocrit 36.4 36.0 - 46.0 % MCV 94.3 80.0 - 100.0 fL MCH 31.3 26.0 - 34.0 pg MCHC 33.2 31.0 - 37.0 g/dL Platelets 237 150 - 400 K/mcL RDW - CV 14.1 11.6 - 14.8 % MPV 10.3 9.0 - 15.5 fL Neutrophils 61.8 % Lymphocytes 27.8 % Monocytes 5.9 % Eosinophils 3.4 % Basophils 0.7 % IG Percent 0.40Comment: The IG parameter is the percentage % of metamyelocytes, myelocytes, and promyelocytes. Neutrophils Abs 6.38 1.70 - 7.00 K/mcL Lymphocytes Abs 2.87 0.90 - 4.00 K/mcL Monocytes Abs 0.61 0.30 - 0.90 K/mcL Eosinophils Abs 0.35 0.00 - 0.50 K/mcL Basophils Abs 0.07 0.00 - 0.30 K/mcL IG Absolute 0.04 0.00 - 0.30 K/mcL Nucleated RBC 0.0 % Nucleated RBC Abs 0.00 0.00 - 0.00 K/mcL Specimen Performing Laboratory Blood [facility] [address] [place] [id number] CMP (04/15/2017 11:13 PM) Component Value Ref Range Sodium 142 135 - 145 mmol/L Potassium 3.7 3.5 - 5.1 mmol/L Chloride 103 98 - 108 mmol/L Bicarbonate 27 21 - 32 mmol/L Anion Gap 16 10 - 20 mmol/L Glucose 88 65 - 99 mg/dL BUN 10 8 - 25 mg/dL Creatinine 0.69 0.40 - 1.10 mg/dL eGFR 127 >=60 mL/min/1.73 m2 BUN/Creatinine Ratio 14.5 10.0 - 20.0 Total Protein 7.6 6.0 - 8.0 g/dL Albumin 4.5 3.2 - 5.2 g/dL Calcium 9.3 8.4 - 10.2 mg/dL Alkaline Phosphatase 76 40 - 140 U/L AST 16 0 - 45 U/L ALT 11 0 - 40 U/L Total Bilirubin <0.2 0.0 - 1.3 mg/dL Specimen Performing Laboratory Blood [facility] [address] [place] [address] Narrative The eGFR should be used for monitoring renal function only and not for medication dosing. CBC w/ Diff (04/15/2017 11:13 PM) Specimen Performing Laboratory Blood Narrative The following orders were created for panel order CBC w/ Diff. Procedure? Abnormality? Status? ---------? ------? CBC Auto Differential[[id number]]?Abnormal?Final result? Please view results for these tests on the individual orders. Urine Drug Screen (04/15/2017 11:13 PM) Component Value Ref Range Amphetamine Screen, Urine None Detected None Detected Comment: Urine Amphetamine Cutoff:?< 1000 ng/mL = None Detected Barbiturate Screen, Urine None Detected None Detected Comment: Urine Barbiturates Cutoff: < 200 ng/mL = None Detected Benzodiazepine Screen, Urine None Detected None Detected Comment: Urine Benzodiazepine Cutoff: < 300 ng/mL = None Detected Cannabinoid Screen, Urine None Detected None Detected Comment: Urine Cannabinoids Cutoff: < 50 ng/mL = None Detected Cocaine, Screen Urine None Detected None Detected Comment: Urine Cocaine Cutoff: < 300 ng/mL = None Detected Methadone Screen, Urine None Detected None Detected Comment: Urine Methadone Cutoff: < 300 ng/mL = None Detected Opiate Screen, Urine None Detected None Detected Comment: Urine Opiates Cutoff: < 300 ng/mL = None Detected Oxycodone Screen, Urine None Detected None Detected Comment: Urine Oxycodone Cutoff: < 100 ng/mL = None Detected Specimen Performing Laboratory Urine - Urine, Random [facility] [address] [place] [address] Narrative Screen results should be used for treatment purposes only. Urine (04/15/2017 11:13 PM) Component Value Ref Range Beta-hCG, Ur, Qual Negative Negative Specimen Performing Laboratory Urine - Urine, Random [facility] [address] [place] [address] Narrative Urine specific gravity less than 1.010 can give a false negative test result.? Any specimen with a specific gravity less than 1.010 or collected before the first day of a missed menstrual period should be checked with a serum test. Urinalysis (04/15/2017 11:13 PM) Component Value Ref Range Color, Urine Yellow Colorless, Yellow Clarity, Urine Cloudy (A) Clear Specific [place] 1.021 1.005 - 1.025 pH, Urine 7.0 5.0 - 7.0 Protein, Urine Negative Negative mg/dL Glucose, Urine Negative Negative mg/dL Ketones, Urine Negative Negative mg/dL Bilirubin, Urine Negative Negative Urobilinogen, Urine <2.0 <2.0 mg/dL Blood, Urine Negative Negative Nitrite, Urine Negative Negative Leukocyte Esterase, Urine Moderate (A) Negative WBCs, Urine 54 (H) 0 - 5 /hpf RBCs, Urine 7 (H) 0 - 3 /hpf Bacteria, Urine Many (A) None Seen /hpf WBC Clumps, Urine Rare (A) None Seen /hpf Squamous Epithelial 1 0 - 4 /hpf Amorphous Crystals Many (A) None Seen, Rare /hpf Mucus, Urine Rare None Seen, Rare /lpf Specimen Performing Laboratory Urine - Urine, Random [facility] [address] [place] [address] Narrative Microscopic examination is performed on all urinalysis samples and only positive findings are reported. The test for blood on the chemical analytic portion of urinalysis may also be positive due to hemoglobinuria and myoglobinuria and if red blood cells are present they are quantified by microscopic examination. Wet Preparation (04/15/2017 11:05 PM) Component Value Ref Range Trich, Wet [...] Cells Seen Specimen Performing Laboratory Swab - Vagina [facility] [address] [place] [address] in this encounter Visit Diagnoses Diagnosis Pelvic pain in female - Primary Unspecified symptom associated with female genital organs Acute UTI Urinary tract infection, site not specified Concern about STD in female without diagnosis Cervicitis Cervicitis and endocervicitis Cyst of left ovary Other and unspecified ovarian cyst in this encounter Administered Medications Inactive Administered Medications - up to 3 most recent administrations Medication Order MAR Action Action Date Dose Rate Site azithromycin (ZITHROMAX) tablet Given 04/16/2017 01:07 EDT 1,000 mg 1,000 mg 1,000 mg, Oral, Once, Sun04/16/17 at 0050, For 1 dose, Indication: STD Prophylaxis cefTRIAXone IM (ROCEPHIN) Given 04/16/2017 01:08 EDT 250 mg Right Ventrogluteal injection 250 mg 250 mg, Intramuscular, Once, Sun04/16/17 at 0050, For 1 dose, Indication: STD Prophylaxis in this encounter Insurance Payer Benefit Plan / Group Subscriber ID Type Phone Address [employer] MANAGED MEDICAID [employer]AN [id number] as of this encounter
== END 2018-08-07 12:39 | disposition home or self-care (01) ==
PROVIDERS: Emergency Provider Emergency Medicine
DX: R11.10 Vomiting, unspecified (principal)
CPT/HCPCS: 81001; 81025; 99282

== ENCOUNTER 2018-08-14 16:14 | Emergency (ER) | payer SELFPAY ==
[2018-08-14 16:15] VITALS: BP 126/76; PULSE 107; RESP 18; TEMP 36.4; O2SAT 100; BMI 19.5
--- NOTE | 2018-08-14 16:47 | ED.DCSUM_ITS ---
- ER Visit Summary Date of Service: 08/14/18 Chief Complaint: [] anxiety episode today History of Present Illness: The patient is a 23 F [] no past history reports that she will intermittently have episodes where she becomes very anxious and nervous for unspecified reasons, she has no suicidal homicidal ideation no history of drug or alcohol use no history of document depression or other behavioral health disorder processes or conditions, for unspecified reasons today she had an episode where she was quite anxious and nervous she was tearful and she was brought to the emergency department, on arrival here she is awake she is alert she has no complaints she feels much better, Physical Examination: [] 126/76 afebrile General, no distress resting comfortably HEENT is generally unremarkable The neck is supple no adenopathy Cardiovascular, regular rate and rhythm Lungs, clear bilateral Abdomen, soft nontender Extremities, no clubbing cyanosis or edema Neurologic, awake alert answering questions appropriately moving all 4 extremities, there is no suicidal ideation homicidal ideation, she is resting comfortably bed states she feels better Long conversation with her and her spouse I believe she would require management through the behavioral health counseling center she agrees at this time of explained the best course of action to be seen by counseling services who can determine her ongoing needs as initially medications or not usually prescribed and if they are needed her outpatient providers can determine which are more appropriate she is comfortable with this plan she will return for change in symptoms Test Results: [] Emergency Department Course and Treatment: [] Treatment Plan: [] Disposition: [] Home stable Impression: [] Episode of anxiety resolved This note was generated with [employer] dictation software. It may contain incorrect words, spelling, and punctuation that were not noted in review of the chart prior to signing ED Disposition - Plan for ED Patient: Chief Complaint: Anxiety Referrals: Care Physician,No Primary [Primary Care Provider] -
--- NOTE | 2018-08-14 16:47 | ED.DEP ---
ED Disposition - Plan for ED Patient: Chief Complaint: Anxiety Instructions: ED Stress React Referrals: Care Physician,No Primary [Primary Care Provider] - Counseling,Center [GROUP OF PHYSICIANS] -
[2018-08-14 16:54] VITALS: RESP 18
== END 2018-08-14 17:24 | disposition home or self-care (01) ==
LOC: ED 17:00
PROVIDERS: Emergency Provider Emergency Medicine
DX: F41.9 Anxiety disorder, unspecified (principal)
CPT/HCPCS: 99282

== ENCOUNTER 2018-11-13 14:37 | Outpatient (RCR) | payer MEDICAID, SELFPAY ==
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
--- NOTE | 2019-03-12 15:19 | HP.OT.NRP ---
HP - Discharge Summary - Patient Information THANG CHRISTENSEN was seen in my office for initial evaluation on 11/13/18. The following Plan of Care was established for this patient: Initial Frequency: 2x /Week Initial Duration: 2 Months - Anticipated Interventions Anticipated Interventions: Strengthening, Ergonomic Education This patient was last seen in our office 11/13/18. Pertinent comments regarding their Occupational therapy will appear below: PT was seen for OT eval only. Pt has not scheduled further apts and due to time lapse in services pt d/c. At this point I will be discontinuing this patient from occupational therapy. I would be happy to see this patient again in the future if found appropriate by the physician. Thank you! Bernadette Edwards, OTR/L, CHT
== END 2018-11-13 19:00 | disposition home or self-care (01) ==
LOC: OT 14:37
DX: T07.XXXA Unspecified multiple injuries, initial encounter (principal)
CPT/HCPCS: 97166

== ENCOUNTER 2018-11-27 09:51 | Emergency (ER) | payer MEDICAID, SELFPAY ==
[2018-11-27 09:52] VITALS: BP 103/58; PULSE 106; RESP 17; TEMP 36.8; O2SAT 100; BMI 18.5
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
[2018-11-27] MEDS: oxyCODONE 5 MG Tablet PO (10:25)
== END 2018-11-27 10:36 | disposition home or self-care (01) ==
PROVIDERS: Emergency Provider Emergency Medicine
DX: M54.5 Low back pain (principal); G89.29 Other chronic pain; Z87.891 Personal history of nicotine dependence
CPT/HCPCS: 99283

== ENCOUNTER 2019-07-21 11:30 | Outpatient (RCR) | payer MEDICAID, SELFPAY ==
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
--- NOTE | 2019-07-21 11:58 | HP.PTDCSUM ---
HP - PT D/C Summary It has been my pleasure to treat THANG CHRISTENSEN under orders from Iglesia Gambino, for the diagnosis of CERVICALALGIA for a total of 3 visit(s). Discharge Date: Please see the following information for a summary of their discharge status. - Subjective Subjective: PATIENT REPORTS SHE HAS BEEN ABLE TO DO ALL OF HER HOME EX'S. SHE STATES SHE THINKS THE EX'S ARE GOING TO BE HELPFUL OVER TIME. STATES SHE HASN'T BEEN HAVING MUCH PAIN AT ALL BUT SOME TEMPORARY SORENESS WITH THE EX'S. - Overall Improvement % Improvement: 30 - Objective Objective/Function: AGAIN EMPHASIZED STRONGLY TO PATIENT TO MODIFY ALL EX'S TO AVOID CAUSING DIZZINESS, LIGHT HEADEDNESS. ALSO AVOID NECK PAIIN AND MARY BETH UE PAIN, NUMBNESS AND TINGLING. WENT SLOW AND CAREFUL WITH ALL EX'S TODAY AND NO LIGHT HEADEDNESS WITH NECK STRETCHES. ABLE TO MODIFY TO AVOID SX'S WITH ALL EX'S. BRIEF RE-CHECK - THERE ARE NO SIGNIFICANT CHANGES IN MEASUREMENTS SINCE INTIAL EVAL HOWEVER PATIENT IS INDEP WITH A HEP NOW. - Goals Goal 1:: DECREASE C/O NECK PAIN Goal Progress: Goal Met Goal 2:: INDEP HEP FOR NECK AND SCAPULAR ROM, STRETCHING AND STRENGTHENING. Goal Progress: Goal Met - Plan Plan: D/C TO INDEP HEP WITH WRITTEN INSTRUCTIONS GIVEN. PATIENT IS AGREEABLE. - D/C Information If there are questions or concerns regarding this patient's physical therapy, please feel free to call me at [phone]. Thank you for the referral of this patient. Sincerely, Julissa Mcpherson, PT, Cert MDT
== END 2019-07-21 19:00 | disposition home or self-care (01) ==
LOC: PT 11:30
PROVIDERS: Referring Provider Orthopaedic Surgery Orthopaedic Surgery of the Spine; Visit Provider Orthopaedic Surgery Orthopaedic Surgery of the Spine
DX: M54.2 Cervicalgia (principal)
CPT/HCPCS: 97110; 97162

== ENCOUNTER → 2020-03-27 18:01 | Emergency (ER) | payer MEDICAID, SELFPAY ==
[2020-03-27 18:02] VITALS: BP 122/79; PULSE 87; RESP 16; TEMP 36.7; O2SAT 98; BMI 20.5
[2020-03-27] MEDS: Ketorolac 30 MG/ML Syringe IV (18:41)
[2020-03-27] MEDS: DiphenhydrAMINE 50 MG/ML Syringe 25 MG IV (18:41)
[2020-03-27] MEDS: proCHLORPERazine 10 MG/2 ML Vial IV (18:41)
--- NOTE | 2020-03-27 18:59 | ED.RN ---
PT STATES SHE NEEDS TO LEAVE NOW. IV CATHETER REMOVED AND INTACT. DR MAHAJAN NOTIFIED
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
--- NOTE | 2020-03-27 19:07 | DCINST.ED_ITS ---
ED Disposition - Plan for ED Patient: Instructions: ED Headache Unspecified Referrals: Azalea Hutton, SCALE MECHANIC-C [Primary Care Provider] -
--- NOTE | 2020-03-27 19:07 | ED.DEP ---
ED Disposition - Plan for ED Patient: Instructions: ED Headache Unspecified Referrals: Azalea Hutton, PULL OVER-C [Primary Care Provider] -
== END ==
PROVIDERS: Emergency Provider Emergency Medicine; PCP Nurse Practitioner Family
DX: R51 Headache (principal); S06.0X9A Concussion with loss of consciousness of unspecified duration, initial encounter; V89.2XXA Person injured in unspecified motor-vehicle accident, traffic, initial encounter
CPT/HCPCS: 96374; 96375; 99282; A4216

== ENCOUNTER 2021-10-17 02:25 | Emergency (ER) | payer MEDICAID, SELFPAY ==
[2021-10-17 02:26] VITALS: BP 142/87; PULSE 87; RESP 16; TEMP 35.5; O2SAT 100; BMI 18.1
--- NOTE | 2021-10-17 03:25 | EDS_ITS ---
HPI HPI - GI History of Present Illness Chief Complaint: Flank Pain Informant: patient Abdominal Pain/Flank Pain Onset: Hours (5) Context: Sudden Onset Timing: Continuous Quality: Aching, Dull and Sharp Location: RUQ and Right Flank Worsened by: - (Sitting, standing, ambulation) Relieved by: - (Laying flat) Nausea/Vomiting/Emesis GI Symptom: Positive for Nausea; Negative for Vomiting Diarrhea/Melena/Hematochezia GI Symptom: Negative for Diarrhea, Melena and Hematochezia Associated Symptoms Associated Symptoms: Positive for Hematuria; Negative for Dysuria and Frequency Narrative Narrative: Patient presents with right flank pain that began approximately 5 hours prior to arrival. Patient states it has been constant. Patient describes it as sharp, dull, and aching. Patient states the pain starts in her right flank and radiates around into her right upper quadrant. Patient states her pain is worse with sitting, standing, and walking. Patient states it is better whenever she lays down. Patient admits to nausea but denies any vomiting. Patient denies any diarrhea, melena, or hematochezia. Patient admits to some hematuria but denies any dysuria or frequency. PFSH PFSH Medical History no medical history no medical history Home Medications ciprofloxacin HCl 500 mg PO BID #14 tablet 10/17/21 [Rx Last Taken Unknown] Allergy/AdvReac Type Severity Reaction Status Date / Time amoxicillin Allergy Hives Verified 10/17/21 02:29 Surgical History (Updated 10/17/21 @ 03:[address] Quique Roger DO) History of hip surgery Hx of neck surgery Surgical History no surgical history Social History Smoking Status: Current every day smoker tobacco type: cigarettes ROS ROS ED Constitutional Constitutional ED: Denies chills or fever(s) Eyes Eyes: Denies blurry vision or change in vision ENT ENT ED: Denies rhinorrhea or sore throat Cardiovascular Cardiovascular: Denies chest pain or palpitations Respiratory/Chest Respiratory/Chest: Reports dyspnea; Denies cough Gastrointestinal Gastrointestinal: Reports abdominal pain and nausea; Denies vomiting Genitourinary Genitourinary ED: Reports hematuria; Denies dysuria or urinary frequency Musculoskeletal Musculoskeletal: Reports back pain; Denies neck pain Integumentary Denies abscess or rash Neurologic Neurologic: Denies headache(s) or weakness Allergic/Immunologic Allergic/Immunologic ED: Denies mouth swelling or urticaria EXAM Physical Exam Const Vital Signs: 10/17/21 02:26 Temperature 96 F L Temperature Source Temporal Pulse Rate 87 Respiratory Rate 16 Blood Pressure 142/87 H Blood Pressure Mean 105 Pulse Ox 100 Oxygen Delivery Method Room Air Positive well nourished, well developed and unkempt General Appearance ED: unkempt, well developed and NAD HEENT Reports moist mucous membranes Neck supple and no JVD Resp normal respiratory effort and clear to auscultation bilaterally Cardio regular rate and regular rhythm GI non-distended Auscultation: normoactive bowel sounds Palpation: soft and tender RUQ; Negative for guarding or rebound tenderness present Back/Spine General Back: CVA tenderness right Extremity full ROM General Extremety ED: Negative for tenderness Neuro CN's II-XII intact bilaterally, moves all extremities and no sensory deficits noted Sensorium / Orientation: alert, oriented to person, oriented to place and oriented to time Motor Exam: strength 5/5 throughout Psych mental status grossly normal Appearance: unkempt MDM MDM MDM Narrative Medical decision making narrative: Patient was given IV fluids, morphine, and Zofran. CBC was within normal limits. Comprehensive metabolic profile was within normal limits. Lipase was normal. Urinalysis shows a leukocyte esterase 500 with 50-100 white blood cells and 1+ bacteria. Urine culture was ordered. Patient was started on Cipro here. CT scan of the abdomen pelvis was obtained. There is no acute abdominal abnormality. This was interpreted by the radiologist and reviewed by myself. Patient was given a prescription for Cipro. Patient was instructed to drink plenty of fluids. Patient was instructed to follow-up with her primary care physician in 5 to 7 days. Patient understood and was agreeable with the plan. All questions were answered. Lab Data Attestation: I reviewed the patient's lab results. Labs: Laboratory Results - last 24 hr 10/17/21 10/17/21 10/17/21 02:36 02:36 02:36 WBC 9.4 RBC 4.03 L Hgb 13.7 Hct 39.6 MCV 98.3 MCH 34.0 H MCHC 34.6 RDW Std Deviation 46.3 H RDW Coeff of Jean-Paul 12.8 Plt Count 240 MPV 9.7 Immature Gran % (Auto) 0.300 Neut % (Auto) 48.6 Lymph % (Auto) 41.5 H Page % (Auto) 5.7 Eos % (Auto) 3.5 Baso % (Auto) 0.4 Absolute Neuts (auto) 4.6 Absolute Lymphs (auto) 3.89 Nucleated RBC % 0 Sodium 141 Potassium 3.5 Chloride 111 H Carbon Dioxide 24.0 Anion Gap 6 BUN 10 Creatinine 0.72 Estim Creat Clear Calc 112.60 Est GFR (MDRD) Af Amer 129 Est GFR (MDRD) Non-Af 106 BUN/Creatinine Ratio 14.0 Glucose 104 Calcium 8.7 Total Bilirubin 0.30 AST 12 L ALT 18 Alkaline Phosphatase 56 Total Protein 6.9 Albumin 3.9 Globulin 3.0 Albumin/Globulin Ratio 1.3 Lipase 127 Urine Color Yellow Urine Clarity Clear Urine pH 6.0 Ur Specific [place] 1.025 Urine Protein 30 H Urine Glucose (UA) Normal Urine Ketones 5 H Urine Occult Blood 10 H Urine Nitrite Negative Urine Bilirubin Negative Urine Urobilinogen 4 H Ur Leukocyte Esterase 500 H Urine RBC 0 SEEN Urine WBC 50-100 SEEN Ur Squamous Epith Cells 0-5 SEEN Urine Bacteria 1+ Urine Mucus 0 SEEN Radiography Diagnostic Testing: Clinical Impression(s) from Imaging Studies Abdomen/Pelvis CT 10/17/21 03:31 IMPRESSION: No acute findings in the abdomen or pelvis on this noncontrast exam. Individualized dose optimization techniques were used for this CT. at 0428 Reported and signed by: Moisés Hagen MD Electronically Signed: Moisés Hagen MD at 4:28 EST , Discharge Plan Triage Chief Complaint: Flank Pain ED Provider: Quique Roger Dx/Rx/DC Orders Clinical Impression: Pyelonephritis Instructions: ED Pyelonephritis, Female (Adult) Prescriptions: New ciprofloxacin HCl [ciprofloxacin HCl] 500 MG tablet 500 mg PO BID Qty: 14 RF: 0 Primary Care Provider: Azalea Hutton NP Referrals: Azalea Hutton NP, CIGARETTE MAKING MACHINE CATCHER-C [Primary Care Provider] - 3-5 Days Disposition Disposition: Home, Self Care
--- NOTE | 2021-10-17 03:31 | CT_ITS ---
EXAM: CT ABDOMEN AND PELVIS WITHOUT INTRAVENOUS CONTRAST : 1995 CLINICAL INDICATION: Right flank pain TECHNIQUE: Helically acquired images were obtained of the abdomen and pelvis without intravenous contrast. This CT exam was performed using one or more of the following dose reduction techniques: automated exposure control, adjustment of the mA and/or kV according to patient size, and/or use of iterative reconstruction technique. This report was created using [employer] report generation technology. COMPARISON: None. FINDINGS: LOWER THORAX: Unremarkable. Lung bases are clear. No cardiomegaly. No significant pericardial effusion. ABDOMEN: LIVER: Unremarkable. Homogeneous. GALLBLADDER AND BILE DUCTS: Partly contracted. No calcified gallstones. No gallbladder distention or wall edema. No intra- or extrahepatic biliary ductal dilation. PANCREAS: Unremarkable. No focal cystic mass. SPLEEN: Unremarkable. Normal size without focal cystic or solid mass. ADRENALS: Unremarkable. No nodules. KIDNEYS AND URETERS: No urinary stone or renal obstruction. Normal renal size and position. STOMACH AND BOWEL: Unremarkable. No stomach or bowel distention. No focal inflammatory change. PELVIS: APPENDIX: The appendix is normal. BLADDER: Unremarkable. REPRODUCTIVE: Unremarkable as visualized. No mass. ABDOMEN and PELVIS: INTRAPERITONEAL SPACE: Unremarkable. No ascites or other fluid collection. No free air. BONES/JOINTS: Prior surgical fusion of the sacroiliac joints. No suspicious lytic or blastic abnormality. SOFT TISSUES: Unremarkable. No discrete abdominal or pelvic wall hernia. VASCULATURE: Unremarkable. Abdominal aorta is non-dilated. LYMPH NODES: Unremarkable. No enlarged lymph nodes. CT/Abdomen/Pelvis without Cont IMPRESSION: No acute findings in the abdomen or pelvis on this noncontrast exam. Individualized dose optimization techniques were used for this CT. at 0428 Reported and signed by: Moisés Hagen MD Electronically Signed: Moisés Hagen MD at 4:28 EST ,
[2021-10-17 03:38] LABS: Mucous, Urine 0 SEEN /hpf (<or=2+); Red Blood Cells-Urine 0 SEEN /hpf (0-5)
[2021-10-17 03:42] LABS: Absolute Lymphocyte Count 3.89 X10^3/uL (0.83-4.51); Absolute Neutrophil Count 4.6 X10^3/uL (2.0-7.7); Basophil# 0.04 X10^3/uL; Basophil% 0.4 % (0-1); Color, Urine Yellow (Yellow); Eosinophil# 0.33 X10^3/uL; Eosinophils% 3.5 % (0-5); Glucose, Dipstick Normal (Normal); Hematocrit 39.6 % (37-47); Hemoglobin 13.7 g/dL (12.0-15.0); Ketone-Dipstick 5 mg/dl (Negative); Leukocyte Esterase-Dipstick 500 /ul (Negative); Lymphocyte # 3.89 X10^3/ul (0.83-4.51); Lymphocyte % 41.5 % (19-41); Mean Corp Hgb Conc 34.6 g/dL (32-36); Mean Corpuscular Volume 98.3 fL (81-99); Mean Platelet Vol. 9.7 fl (6.2-12.0); Monocyte# 0.53 X10^3/uL; Monocyte% 5.7 % (0-10); NRBC Flagged by Analyzer 0 % (0-5); Neutrophil # 4.56 X10^3/uL (2.7-7.7); Neutrophil % 48.6 % (47-70); Nitrite-Dipstick Negative (Negative); Occult Blood-Urine 10 /ul (Negative); Platelet Count 240 K/mm3 (150-450); Protein-Dipstick 30 mg/dl (Negative); RBC Distribution Width CV 12.8 % (11.6-14.6); RBC Distribution Width SD 46.3 fl (35.1-43.9); Red Blood Count 4.03 M/mm3 (4.2-5.4); Specific Gravity, Urine 1.025 (1.002-1.030); Urine Bilirubin Dipstick Negative (Negative); Urine Clarity Clear (Clear); Urine Urobilinogen 4 mg/dl (Normal); White Blood Count 9.4 K/mm3 (4.4-11.0)
[2021-10-17] MEDS: Ondansetron 4 MG/2 ML Vial IV (03:55)
[2021-10-17 03:56] LABS: ALB/GLOB Ratio 1.3 RATIO (0.9-2.4); AST(SGOT) 12 U/L (15-37); Alanine Aminotransfer ALT/SGPT 18 U/L (13-56); Albumin, Serum 3.9 g/dL (3.2-5.0); Alkaline Phosphatase 56 U/L (45-117); Anion Gap 6 (5-15); BUN 10 mg/dL (7-18); Calcium,Total 8.7 mg/dL (8.5-10.1); Chloride 111 mmol/L (98-107); Creatinine, Serum 0.72 mg/dL (0.55-1.02); EST Glomerular Filtration Rate 106 mL/min (>60); Est Glom Filt Rate - Afr Amer 129 mL/min (>60); Glucose 104 mg/dL (74-106); Lipase 127 U/L (73-393); Potassium 3.5 mmol/L (3.5-5.1); Protein, Total 6.9 g/dL (6.4-8.2); Sodium Level 141 mmol/L (136-145)
[2021-10-17 03:57] LABS: White Blood Cells 50-100 SEEN /hpf (0-5)
[2021-10-17] MEDS: Morphine 4 MG/ML Syringe IV (03:57)
[2021-10-17 03:58] LABS: Bacteria 1+ /hpf (None Seen); Squamous Epithelial Cells - UA 0-5 SEEN /hpf (5-10)
[2021-10-17] MEDS: 0.9% Normal Saline 1,000 ML 1000 ML IV (03:59)
[2021-10-17] MEDS: Ciprofloxacin 400 MG/200 ML BAG 200 MG IV (04:52)
[2021-10-17 06:00] VITALS: BP 142/87; PULSE 87; RESP 16; O2SAT 100
== END 2021-10-17 06:19 | disposition home or self-care (01) ==
PROVIDERS: Emergency Provider Emergency Medicine; PCP Nurse Practitioner Family; Visit Provider Emergency Medicine
DX: N12 Tubulo-interstitial nephritis, not specified as acute or chronic (principal); F17.210 Nicotine dependence, cigarettes, uncomplicated
CPT/HCPCS: 74176; 80053; 81001; 83690; 85025; 96365; 96366; 96375; 99285; J7030; J0744; J2405

== ENCOUNTER 2023-06-29 17:42 | Emergency (ER) | payer MEDICAID, SELFPAY ==
[2023-06-29 17:44] VITALS: BP 119/60; PULSE 101; RESP 16; TEMP 36.6; O2SAT 99; BMI 18.1
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
[2023-06-29 19:27] VITALS: BP 120/74; PULSE 90; RESP 16; O2SAT 97
== END 2023-06-29 19:32 | disposition home or self-care (01) ==
PROVIDERS: Emergency Provider Emergency Medicine; Visit Provider Emergency Medicine
DX: S16.1XXA Strain of muscle, fascia and tendon at neck level, initial encounter (principal); S06.0X0A Concussion without loss of consciousness, initial encounter; F17.210 Nicotine dependence, cigarettes, uncomplicated; V49.40XA Driver injured in collision with unspecified motor vehicles in traffic accident, initial encounter
CPT/HCPCS: 70450; 72125; 99282

== ENCOUNTER 2023-08-06 15:51 | Emergency (ER) | payer MEDICAID, SELFPAY ==
[2023-08-06 15:52] VITALS: BP 116/74; PULSE 90; RESP 18; TEMP 36.4; O2SAT 98; BMI 18.1
== END 2023-08-06 16:35 | disposition left against medical advice (07) ==
LOC: ED 17:01
DX: Z86.73 Personal history of transient ischemic attack (TIA), and cerebral infarction without residual deficits (principal)

== ENCOUNTER 2023-09-04 23:04 | Emergency (ER) | payer MEDICAID, SELFPAY ==
[2023-09-04 23:05] VITALS: BP 150/85; PULSE 85; RESP 16; TEMP 36.4; O2SAT 100; BMI 17.6
== END 2023-09-04 23:10 | disposition left against medical advice (07) ==
LOC: ED 09-05 00:06
DX: Z53.21 Procedure and treatment not carried out due to patient leaving prior to being seen by health care provider (principal)

== ENCOUNTER 2023-09-21 17:39 | Emergency (ER) | payer MEDICAID, SELFPAY ==
[2023-09-21 17:40] VITALS: BP 111/73; PULSE 88; RESP 14; TEMP 37.2; O2SAT 100; BMI 17.6
--- NOTE | 2023-09-21 17:43 | EX.ED.GENINJ ---
HPI History of Present Illness Chief Complaint: Other, Pain/Inj PFSH PFSH Medical History Acute otitis media, left Home Medications azithromycin 250 mg tablet 250 mg PO QDAY #6 tabs 09/18/23 [Rx Last Taken Unknown] ondansetron HCl 4 mg tablet 4 mg PO Q6H PRN nausea and vomiting #4 tabs 09/18/23 [Rx Last Taken Unknown] Allergy/AdvReac Type Severity Reaction Status Date / Time amoxicillin Allergy Hives Verified 09/21/23 17:40 Surgical History History of hip surgery Hx of neck surgery Social History Smoking Status: Current every day smoker tobacco type: cigarettes EXAM Physical Exam Const Vital Signs: 09/21/23 17:40 09/21/23 17:39 Temperature 99 F Temperature Source Temporal Pulse Rate 88 Respiratory Rate 14 Respiratory Pattern Normal Blood Pressure 111/73 Blood Pressure Mean 85 Pulse Ox 100 Oxygen Delivery Method Room Air MDM MDM MDM Narrative Medical decision making narrative: HISTORY OF PRESENT ILLNESS: 28-year-old female presents with facial swelling. Notes recently diagnosed with left-sided ear infection. States she has had swelling in her face worse in the morning. States he is taking cefdinir for ear infection. No chest pain, nonacceptance, no difficulty opening her mouth. No drooling. REVIEW OF SYSTEMS: Pertinent positives: Facial swelling Pertinent negatives: Neck pain or stiffness sore throat, dental pain, difficulty swallowing, trismus or drooling PHYSICAL EXAM: Nursing triage notes reviewed, Vital signs reviewed Constitutional: please see mdm HENT: MMM, poor dentition however no obvious dental abscess or infected dentition, left ear with erythema hyperemia and middle ear effusion consistent with likely otitis media, noted perirectal lymphadenopathy in the left Eyes: Pupils equal round and reactive to light, Extraocular muscles intact Neck: No stridor, no JVD, full neck ROM Lungs: Clear to auscultation, No wheezing or rales. No increased work of breathing, no conversational dyspnea, no accessory muscle use, no nasal flaring. No respiratory distress noted Heart: Regular rate and rhythm, No murmurs, No rubs and No gallops, 2+ distal pulses (radial, femoral, posterior tibial) in all extremities Abdomen: Soft, there is no tenderness, rigidity, rebound or guarding, no obvious peritoneal signs, no palpable pulsatile abdominal masses, no auscultated abdominal bruit Skin: No rash or lesions noted MEDICAL DECISION MAKING: Chief Complaint: Facial swelling MDM Narrative: Patient was hemodynamically stable, afebrile, nontoxic-appearing. Exam without signs of Eric angina, peritonsillar abscess, no signs of airway compromise, no signs of drooling trismus, jaw malocclusion, difficulty with jaw opening. No indication for treatment at this time. Prednisone will likely increase risk for developing worse otitis media. I recommended NSAIDs every 6 hours and close PCP f/u. Strict return precautions were discussed. The patient and/or family, caregivers express understanding. The patient and/or family, caregivers agrees with the plan. Shared decision making: I will have a discussion with the patient and or visitors regarding risk/benefits of further testing or admission. They will be made aware of of the risk/benefits inherent in this decision they will be given the opportunity to voice understanding. Total critical care time today provided was at least 0 minutes. This excludes separately billable procedures. Critical care time (if documented) is secondary to the patient having high probability of clinically significant/life threatening deterioration in the patient's condition which required my urgent intervention. Impression: 1. Otitis media 2. Periauricular lymphadenopathy Dispo: discharge This note was generated with [employer] dictation software. It may contain incorrect words, spelling, and punctuation that were not noted in review of the chart prior to signing. Discharge Plan Triage Chief Complaint: Other, Pain/Inj ED Provider: Nitin Grande Dx/Rx/DC Orders Clinical Impression: Acute otitis media, left, Lymphadenopathy Prescriptions: No Action azithromycin 250 mg tablet 250 mg PO QDAY Qty: 6 0RF Rx Instructions: 2 tablets today, then 1 tablet daily on days 2 through 5 ondansetron HCl 4 mg tablet 4 mg PO Q6H PRN (Reason: nausea and vomiting) Qty: 4 0RF Primary Care Provider: Care Physician,No Primary Referrals: Ildefonso Jacobson MD [Med Staff - Weight Inspector] - Activity Restrictions/Additional Instructions: Thank you for trusting us with your care today! Please take Tylenol (2 pills, 650 mg), ibuprofen (2 pills, 400 mg) every 6 hours as needed for pain and fever control. Please continue take antibiotics until course complete. Please return to the emergency department if your symptoms change or worsen. Please follow with your primary care physician for further outpatient evaluation and management. Disposition Disposition: Home, Self Care Discharge Date/Time: 09/21/23 18:31
== END 2023-09-21 18:31 | disposition home or self-care (01) ==
LOC: ED 18:20
PROVIDERS: Emergency Provider Emergency Medicine; Visit Provider Emergency Medicine
DX: H66.92 Otitis media, unspecified, left ear (principal); R59.0 Localized enlarged lymph nodes; F17.210 Nicotine dependence, cigarettes, uncomplicated
CPT/HCPCS: 99282